=== PATIENT | male | born 1940 | race Caucasian/White ===

== ENCOUNTER 2018-08-23 09:33 | Observation (INO) | payer MEDICARE, BC ==
[2018-08-23] MEDS ORDERED: Sodium Chloride 0.9% 2.5 ML Syringe FLUSH PRN ×2 (09:40→12:23)
[2018-08-23] MEDS ORDERED: Sodium Chloride 0.9% 10 ML Syringe FLUSH PRN ×2 (09:40→12:23)
[2018-08-23] MEDS ORDERED: 50% Dextrose in Water 50 ML Syringe ONE (09:42)
[2018-08-23] MEDS ORDERED: 50% Dextrose in Water 50 ML Syringe IVPUSH ONE (09:42)
--- NOTE | 2018-08-23 10:04 | CT ---
EXAMINATION: Non contrast CT head. Coronal and sagittal reformats. HISTORY: Stroke code FINDINGS: No evidence of intra or extra axial hemorrhage, mass, midline shift, hydrocephalus or edema. Moderate periventricular and subcortical white matter hypodensities are noted. No hypoattenuation changes in the major vascular territories to suggest acute infarct. No abnormal intracranial calcifications are detected. Moderate vascular calcifications. Paranasal sinuses and mastoid air cells are well aerated without substantial findings. Orbits and globes are symmetric. Pituitary fossa appears unremarkable. Calvarium is intact. No evidence of skull fracture. IMPRESSION: 1. No acute intracranial findings. 2. Moderate small vessel ischemic changes.
--- NOTE | 2018-08-23 10:21 | EDM.PDOC ---
ED HPI GENERAL MEDICAL PROBLEM - General Chief Complaint: Neuro Symptoms/Deficits Stated Complaint: STROKE CODE Time Seen by Provider: 08/23/18 09:38 Source of Information: Reports: Family History Limitations: Reports: No Limitations - History of Present Illness INITIAL COMMENTS - FREE TEXT/NARRATIVE: History of present illness: []Patient was at the pharmacy with his when he became weak. He then became confused and diaphoretic according to his . He was seen at the [facility] yesterday and I most with a "touch of pneumonia" he was at the pharmacy picking up his antibiotics. His drove him back to the [facility] after this episode occurred and they told her to drive him directly to the emergency room. He had no loss of consciousness had no complaints but was very confused and disoriented. Review of systems: As per history of present illness and below otherwise all systems reviewed and negative. Past medical history: As per history of present illness and as reviewed below otherwise noncontributory. Surgical history: As per history of present illness and as reviewed below otherwise noncontributory. Social history: No reported history of drug or alcohol abuse. Family history: As per history of present illness and as reviewed below otherwise noncontributory. Physical exam: General: Well developed, well nourished in NAD but diaphoretic, confused HEENT: Atraumatic, normocephalic, pupils reactive, negative for conjunctival pallor or scleral icterus, mucous membranes moist, throat clear, neck supple, nontender, trachea midline. Lungs: Clear to auscultation, breath sounds equal bilaterally, chest nontender. Heart: S1S2, regular, negative for clicks, rubs, or JVD. Abdomen: NABS, Soft, nondistended, nontender. Negative for masses or hepatosplenomegaly. Negative for costovertebral tenderness. Pelvis: Stable nontender. Genitourinary: Deferred. Rectal: Deferred. Extremities: Atraumatic, negative for cords or calf pain. Neurovascular unremarkable. Neuro: Awake, alert, Cranial nerves II through XII unremarkable. Cerebellum unremarkable. Motor and sensory unremarkable throughout. Exam nonfocal. Skin:warm and dry Diagnostics: 10 AM-CT head negative EKG shows A. fib, CBC, chemistry, TSH, troponin, chest x- ray, repeat glucose 133 Therapeutics: Patient was found to have a glucose of 50 here and given 1 amp of D50, ED Course: Discussed with Dr. Messer at [id number] will be admitting this patient for observation Impression: Hypoglycemia, altered mental status, new onset A. fib Prescriptions: Plan: Admit for observation Definitive disposition and diagnosis as appropriate pending reevaluation and review of above. - Related Data Allergies Allergy/AdvReac Type Severity Reaction Status Date / Time No Known Allergies Allergy Verified 08/23/18 10:38 Home Meds: Home Meds Aspirin 81 mg PO QAM 05/22/18 [History] Fish Oil/DHA/EPA [Fish Oil 1,200 MG] 1 cap PO QAM 05/22/18 [History] Gabapentin [Neurontin] 200 mg PO BEDTIME 05/22/18 [History] Insuln Asp Prot/Insulin Aspart [NovoLOG Mix 70-30] 27 unit SQ ACDINNER 05/22/18 [History] Liraglutide [Victoza] 1.2 mg SQ QAM 05/22/18 [History] Losartan [Cozaar] 100 mg PO QAM 05/22/18 [History] Metoprolol Tartrate 50 mg PO BID 05/22/18 [History] Simvastatin 10 mg PO QPM 05/22/18 [History] amLODIPine Besylate [Amlodipine Besylate] 10 mg PO QAM 05/22/18 [History] Insuln Asp Prot/Insulin Aspart [NovoLOG Mix 70-30] 33 units SQ ACBREAKFAST 05/24 [History] Multivitamin [Multivitamins] 1 each PO QAM 08/23/18 [History] metFORMIN [Glucophage] 500 mg PO TIDMEALS 08/23/18 [History] Past Medical History HEENT History: Reports: Impaired Vision, Other (See Below) Other HEENT History: wears glasses Cardiovascular History: Reports: Hypertension Gastrointestinal History: Reports: None Genitourinary History: Reports: Diabetic Nephropathy Musculoskeletal History: Reports: Arthritis Psychiatric History: Reports: Depression Endocrine/Metabolic History: Reports: Diabetes, Type II - Infectious Disease History Infectious Disease History: Reports: Chicken Pox - Past Surgical History HEENT Surgical History: Reports: Tonsillectomy GI Surgical History: Reports: Appendectomy Musculoskeletal Surgical History: Reports: Other (See Below) Other Musculoskeletal Surgeries/Procedures:: left knee replacement, right knee surgery Social & Family History - Family History Family Medical History: Noncontributory - Caffeine Use Caffeine Use: Reports: Coffee ED ROS GENERAL - Review of Systems Review Of Systems: ROS reveals no pertinent complaints other than HPI. ED EXAM, NEURO - Physical Exam Exam: See Below (See history of present illness) Course - Vital Signs Last Recorded V/S: Last Vital Signs Temp 96.3 F 08/23/18 09:40 Pulse 92 08/23/18 10:45 Resp 20 08/23/18 09:40 BP 128/92 H 08/23/18 10:45 Pulse Ox 97 08/23/18 10:45 - Orders/Labs/Meds Orders: Active Orders 24 hr Category Date Time Status Assess Neurological Status [RC] ASDIRECTED Care 08/23/18 09:40 Active Bedrest [RC] ASDIRECTED Care 08/23/18 09:40 Active Cardiac Monitoring [RC] . DIRECTED Care 08/23/18 09:40 Active EKG 12 Lead [EKG Documentation Completion] [RC] STAT Care 08/23/18 10:20 Active EKG Documentation Completion [RC] STAT Care 08/23/18 09:40 Active Height and Weight [RC] UPON Care 08/23/18 09:40 Active Initiate Acute Stroke Protocol [RC] STAT Care 08/23/18 09:40 Active NIH Stroke Scale [RC] ASDIRECTED Care 08/23/18 09:40 Active Nursing Bedside Swallow Screen [RC] ASDIRECTED Care 08/23/18 09:40 Active Oxygen Therapy [RC] ASDIRECTED Care 08/23/18 09:40 Active Stroke Education, General [RC] Click to Edit Care 08/23/18 09:40 Active Vital Signs [RC] Q15M Care 08/23/18 09:40 Active Chest 1V Frontal [CR] Stat Exams 08/23/18 11:03 Ordered Sodium Chloride 0.9% [Saline Flush] Med 08/23/18 09:40 Active 10 ml FLUSH ASDIRECTED PRN Sodium Chloride 0.9% [Saline Flush] Med 08/23/18 09:40 Active 2.5 ml FLUSH ASDIRECTED PRN Peripheral IV Insertion Adult [OM.PC] Stat Oth 08/23/18 09:40 Ordered Peripheral IV Insertion Adult [OM.PC] Stat Oth 08/23/18 09:40 Ordered Medication Orders Sodium Chloride (Saline Flush) 10 ml FLUSH ASDIRECTED PRN PRN Reason: Keep Vein Open Sodium Chloride (Saline Flush) 2.5 ml FLUSH ASDIRECTED PRN PRN Reason: Keep Vein Open Labs: Laboratory Tests 08/23/18 08/23/18 08/23/18 Range/Units 10:16 10:16 10:16 WBC 9.16 (4.0-11.0) K/uL RBC 5.29 (4.50-5.90) M/uL Hgb 16.6 (13.0-17.0) g/dL Hct 47.8 (38.0-50.0) % MCV 90.4 (80.0-98.0) fL MCH 31.4 (27.0-32.0) pg MCHC 34.7 (31.0-37.0) g/dL RDW Std Deviation 43.8 (28.0-62.0) fl RDW Coeff of Kailey 13 (11.0-15.0) % Plt Count 323 (150-400) K/uL MPV 9.20 (7.40-12.00) fL Neut % (Auto) 54.5 (48.0-80.0) % Lymph % (Auto) 31.6 (16.0-40.0) % [place] % (Auto) 10.9 (0.0-15.0) % Eos % (Auto) 1.5 (0.0-7.0) % Baso % (Auto) 1.5 (0.0-1.5) % Neut # (Auto) 5.0 (1.4-5.7) K/uL Lymph # (Auto) 2.9 H (0.6-2.4) K/uL [place] # (Auto) 1.0 H (0.0-0.8) K/uL Eos # (Auto) 0.1 (0.0-0.7) K/uL Baso # (Auto) 0.1 (0.0-0.1) K/uL Nucleated RBC % 0.0 /100WBC Nucleated RBCs # 0 K/uL INR 1.04 APTT 27.3 (18.6-31.3) SEC Sodium 136 (136-148) mmol/L Potassium 3.6 (3.5-5.1) mmol/L Chloride 102 (98-107) mmol/L Carbon Dioxide 25.2 (21.0-32.0) mmol/L BUN 24 H (7.0-18.0) mg/dL Creatinine 1.1 (0.8-1.3) mg/dL Est Cr Clr Drug Dosing 59.77 mL/min Estimated GFR (MDRD) > 60.0 ml/min Glucose 138 H (74-106) mg/dL Calcium 9.8 (8.5-10.1) mg/dL Total Bilirubin 0.8 (0.2-1.0) mg/dL AST 24 (15-37) IU/L ALT 32 (14-63) IU/L Alkaline Phosphatase 82 (46-116) U/L Troponin I < 0.050 (0.000-0.056) ng/mL Total Protein 7.3 (6.4-8.2) g/dL Albumin 3.3 L (3.4-5.0) g/dL Globulin 4.0 (2.6-4.0) g/dL Albumin/Globulin Ratio 0.8 L (0.9-1.6) TSH 3rd Generation 1.30 (0.36-3.74) uIU/mL Meds: Medications Generic Name Dose Route Start Last Admin Trade Name Freq PRN Reason Stop Dose Admin Sodium Chloride 10 ml 08/23/18 09:40 Saline Flush FLUSH ASDIRECTED PRN Keep Vein Open Sodium Chloride 2.5 ml 08/23/18 09:40 Saline Flush FLUSH ASDIRECTED PRN Keep Vein Open Discontinued Medications Generic Name Dose Route Start Last Admin Trade Name Freq PRN Reason Stop Dose Admin Dextrose/Water 50 ml 08/23/18 09:42 08/23/18 10:09 Dextrose 50% In Water IVPUSH 08/23/18 09:43 50 ml ONETIME ONE Administration Dextrose/Water Confirm 08/23/18 09:42 08/23/18 10:09 Dextrose 50% In Water Administered 08/23/18 09:43 Not Given Dose 50 ml .ROUTE .STK-MED ONE Departure - Departure Time of Disposition: 11:33 Disposition: Refer to Observation Condition: Good Clinical Impression: New onset a-fib, Hypoglycemia - Discharge Information *PRESCRIPTION DRUG MONITORING PROGRAM REVIEWED*: No *COPY OF PRESCRIPTION DRUG MONITORING REPORT IN PATIENT FLOR: No Referrals: PCP,Unknown [Primary Care Provider] - Forms: ED Department Discharge - My Orders Last 24 Hours: My Active Orders 08/23/18 09:40 Assess Neurological Status [RC] ASDIRECTED Bedrest [RC] ASDIRECTED Cardiac Monitoring [RC] . DIRECTED EKG Documentation Completion [RC] STAT Height and Weight [RC] UPON Initiate Acute Stroke Protocol [RC] STAT NIH Stroke Scale [RC] ASDIRECTED Nursing Bedside Swallow Screen [RC] ASDIRECTED Oxygen Therapy [RC] ASDIRECTED Stroke Education, General [RC] Click to Edit Vital Signs [RC] Q15M Sodium Chloride 0.9% [Saline Flush] 10 ml FLUSH ASDIRECTED PRN Sodium Chloride 0.9% [Saline Flush] 2.5 ml FLUSH ASDIRECTED PRN Peripheral IV Insertion Adult [OM.PC] Stat Peripheral IV Insertion Adult [OM.PC] Stat 08/23/18 10:20 EKG 12 Lead [EKG Documentation Completion] [RC] STAT 08/23/18 11:03 Chest 1V Frontal [CR] Stat - Assessment/Plan Last 24 Hours: My Active Orders 08/23/18 09:40 Assess Neurological Status [RC] ASDIRECTED Bedrest [RC] ASDIRECTED Cardiac Monitoring [RC] . DIRECTED EKG Documentation Completion [RC] STAT Height and Weight [RC] UPON Initiate Acute Stroke Protocol [RC] STAT NIH Stroke Scale [RC] ASDIRECTED Nursing Bedside Swallow Screen [RC] ASDIRECTED Oxygen Therapy [RC] ASDIRECTED Stroke Education, General [RC] Click to Edit Vital Signs [RC] Q15M Sodium Chloride 0.9% [Saline Flush] 10 ml FLUSH ASDIRECTED PRN Sodium Chloride 0.9% [Saline Flush] 2.5 ml FLUSH ASDIRECTED PRN Peripheral IV Insertion Adult [OM.PC] Stat Peripheral IV Insertion Adult [OM.PC] Stat 08/23/18 10:20 EKG 12 Lead [EKG Documentation Completion] [RC] STAT 08/23/18 11:03 Chest 1V Frontal [CR] Stat
[2018-08-23 11:06] LABS: CHLORIDE,CL 102 mmol/L (98-107); SODIUM,NA 136 mmol/L (136-148)
--- NOTE | 2018-08-23 11:42 | CR ---
EXAMINATION: Portable chest radiograph. HISTORY: Stroke code. FINDINGS: The trachea is midline. The cardiomediastinal silhouette is within normal limits. No pulmonary infiltrates, effusions or pneumothorax. Osseous structures appear unremarkable. IMPRESSION: No acute cardiopulmonary process.
--- NOTE | 2018-08-23 12:28 | PCM.HP ---
H&P History of Present Illness - General Date of Service: 08/23/18 Admit Problem/Dx: Admission Diagnosis/Problem Admission Diagnosis/Problem Hypoglycemia - History of Present Illness Initial Comments - Free Text/Narative: This is a 77-year-old male that is being admitted secondary to acute hypoglycemia. Patient has a history of type 2 diabetes for which he takes oral hypoglycemics as well as insulin therapy. Patient takes Novolin 70/30 twice a day at bedtime and in the morning. Patient states that he took his nighttime dose and in the morning after checking his blood sugar which was 107 he took his morning dose of his insulin and him and his have decided that they would go out to have breakfast he only had had a piece of toast and left his home. He had previously come into the ER to have his blood work drawn and showed an elevated WBC neutrophilic in nature for which his primary care told him that he may have a respiratory infection. Patient wants these in the house with his 1 over to the clinic to pear picker his prescription and his noticed that on the way to the pharmacy he appeared to not be responding well and was lethargic and was subsequently then but over to the ER. After careful evaluation as determined that the patient was likely hypoglycemic and was subsequently admitted for hypoglycemia as well as assessment for his possible respiratory infection. - Related Data Allergies/Adverse Reactions: Allergies Allergy/AdvReac Type Severity Reaction Status Date / Time No Known Allergies Allergy Verified 08/23/18 10:38 Home Medications: Home Meds Aspirin 81 mg PO QAM 05/22/18 [History] Fish Oil/DHA/EPA [Fish Oil 1,200 MG] 1 cap PO QAM 05/22/18 [History] Gabapentin [Neurontin] 200 mg PO BEDTIME 05/22/18 [History] Insuln Asp Prot/Insulin Aspart [NovoLOG Mix 70-30] 27 unit SQ ACDINNER 05/22/18 [History] Liraglutide [Victoza] 1.2 mg SQ QAM 05/22/18 [History] Losartan [Cozaar] 100 mg PO QAM 05/22/18 [History] Metoprolol Tartrate 50 mg PO BID 05/22/18 [History] Simvastatin 10 mg PO QPM 05/22/18 [History] amLODIPine Besylate [Amlodipine Besylate] 10 mg PO QAM 05/22/18 [History] Insuln Asp Prot/Insulin Aspart [NovoLOG Mix 70-30] 33 units SQ ACBREAKFAST 05/24 [History] Multivitamin [Multivitamins] 1 each PO QAM 08/23/18 [History] metFORMIN [Glucophage] 500 mg PO TIDMEALS 08/23/18 [History] Past Medical History HEENT History: Reports: Impaired Vision, Other (See Below) Other HEENT History: wears glasses Cardiovascular History: Reports: Hypertension Gastrointestinal History: Reports: None Genitourinary History: Reports: Diabetic Nephropathy Musculoskeletal History: Reports: Arthritis Psychiatric History: Reports: Depression Endocrine/Metabolic History: Reports: Diabetes, Type II - Infectious Disease History Infectious Disease History: Reports: Chicken Pox - Past Surgical History HEENT Surgical History: Reports: Tonsillectomy GI Surgical History: Reports: Appendectomy Musculoskeletal Surgical History: Reports: Other (See Below) Other Musculoskeletal Surgeries/Procedures:: left knee replacement, right knee surgery Social & Family History - Family History Family Medical History: Noncontributory - Tobacco Use Smoking Status *Q: Never Smoker - Caffeine Use Caffeine Use: Reports: Coffee - Recreational Drug Use Recreational Drug Use: No H&P Review of Systems - Review of Systems: Review Of Systems: ROS reveals no pertinent complaints other than HPI. Exam - Exam Exam: See Below - Vital Signs Vital Signs: Last Vital Signs Temp 35.7 C 08/23/18 09:40 Pulse 83 08/23/18 11:30 Resp 20 08/23/18 09:40 BP 134/76 08/23/18 11:30 Pulse Ox 96 08/23/18 11:30 Weight: 115.9 kg - Exam Lungs: Clear to Auscultation, Normal Respiratory Effort Cardiovascular: Regular Rate, Regular Rhythm GI/Abdominal Exam: Normal Bowel Sounds, Soft Extremities: Normal Inspection, Normal Range of Motion - Patient Data Lab Results Last 24 hrs: Laboratory Results - last 24 hr 08/23/18 08/23/18 08/23/18 Range/Units 10:16 10:16 10:16 WBC 9.16 (4.0-11.0) K/uL RBC 5.29 (4.50-5.90) M/uL Hgb 16.6 (13.0-17.0) g/dL Hct 47.8 (38.0-50.0) % MCV 90.4 (80.0-98.0) fL MCH 31.4 (27.0-32.0) pg MCHC 34.7 (31.0-37.0) g/dL RDW Std Deviation 43.8 (28.0-62.0) fl RDW Coeff of Kailey 13 (11.0-15.0) % Plt Count 323 (150-400) K/uL MPV 9.20 (7.40-12.00) fL Neut % (Auto) 54.5 (48.0-80.0) % Lymph % (Auto) 31.6 (16.0-40.0) % [place] % (Auto) 10.9 (0.0-15.0) % Eos % (Auto) 1.5 (0.0-7.0) % Baso % (Auto) 1.5 (0.0-1.5) % Neut # (Auto) 5.0 (1.4-5.7) K/uL Lymph # (Auto) 2.9 H (0.6-2.4) K/uL [place] # (Auto) 1.0 H (0.0-0.8) K/uL Eos # (Auto) 0.1 (0.0-0.7) K/uL Baso # (Auto) 0.1 (0.0-0.1) K/uL Nucleated RBC % 0.0 /100WBC Nucleated RBCs # 0 K/uL INR 1.04 APTT 27.3 (18.6-31.3) SEC Sodium 136 (136-148) mmol/L Potassium 3.6 (3.5-5.1) mmol/L Chloride 102 (98-107) mmol/L Carbon Dioxide 25.2 (21.0-32.0) mmol/L BUN 24 H (7.0-18.0) mg/dL Creatinine 1.1 (0.8-1.3) mg/dL Est Cr Clr Drug Dosing 59.77 mL/min Estimated GFR (MDRD) > 60.0 ml/min Glucose 138 H (74-106) mg/dL Calcium 9.8 (8.5-10.1) mg/dL Total Bilirubin 0.8 (0.2-1.0) mg/dL AST 24 (15-37) IU/L ALT 32 (14-63) IU/L Alkaline Phosphatase 82 (46-116) U/L Troponin I < 0.050 (0.000-0.056) ng/mL Total Protein 7.3 (6.4-8.2) g/dL Albumin 3.3 L (3.4-5.0) g/dL Globulin 4.0 (2.6-4.0) g/dL Albumin/Globulin Ratio 0.8 L (0.9-1.6) TSH 3rd Generation 1.30 (0.36-3.74) uIU/mL Result Diagrams: 08/23/18 10:16 08/23/18 10:16 Problem List Initiated/Reviewed/Updated: Yes Orders Last 24hrs: Active Orders 24 hr Category Date Time Status Admission Status [Patient Status] [ADT] Stat ADT 08/23/18 11:38 Active Patient Status [ADT] Stat ADT 08/23/18 11:34 Active Antiembolic Devices [RC] PER UNIT ROUTINE Care 08/23/18 12:25 Ordered Assess Neurological Status [RC] ASDIRECTED Care 08/23/18 09:40 Active Bedrest [RC] ASDIRECTED Care 08/23/18 09:40 Active Blood Glucose Check, Bedside [RC] QIDACANDBED Care 08/23/18 12:23 Ordered Cardiac Monitoring [RC] . DIRECTED Care 08/23/18 09:40 Active Cardiac Monitoring [RC] . DIRECTED Care 08/23/18 12:25 Ordered EKG 12 Lead [EKG Documentation Completion] [RC] STAT Care 08/23/18 10:20 Active EKG Documentation Completion [RC] STAT Care 08/23/18 09:40 Active Height and Weight [RC] UPON Care 08/23/18 09:40 Active Height and Weight [RC] UPON Care 08/23/18 12:23 Ordered Initiate Acute Stroke Protocol [RC] STAT Care 08/23/18 09:40 Active Intake and Output [RC] QSHIFT Care 08/23/18 12:24 Ordered NIH Stroke Scale [RC] ASDIRECTED Care 08/23/18 09:40 Active Nursing Bedside Swallow Screen [RC] ASDIRECTED Care 08/23/18 09:40 Active Oxygen Therapy [RC] ASDIRECTED Care 08/23/18 09:40 Active Oxygen Therapy [RC] PRN Care 08/23/18 12:23 Ordered Stroke Education, General [RC] Click to Edit Care 08/23/18 09:40 Active Up With Assistance [RC] ASDIRECTED Care 08/23/18 12:23 Ordered VTE/DVT Education [RC] PER UNIT ROUTINE Care 08/23/18 12:23 Ordered Vital Signs [RC] Q15M Care 08/23/18 09:40 Active Vital Signs [RC] Q4H Care 08/23/18 12:23 Ordered [place] [employer] Diet [DIET] Diet 08/23/18 Breakfast Ordered Sodium Chloride 0.9% @ 125 MLS/HR (1000ml) Med 08/23/18 12:30 Ordered Sodium Chloride 0.9% [Normal Saline] 1,000 ml IV ASDIRECTED Sodium Chloride 0.9% [Saline Flush] Med 08/23/18 09:40 Active 10 ml FLUSH ASDIRECTED PRN Sodium Chloride 0.9% [Saline Flush] Med 08/23/18 12:23 Ordered 10 ml FLUSH ASDIRECTED PRN Sodium Chloride 0.9% [Saline Flush] Med 08/23/18 09:40 Active 2.5 ml FLUSH ASDIRECTED PRN Sodium Chloride 0.9% [Saline Flush] Med 08/23/18 12:23 Ordered 2.5 ml FLUSH ASDIRECTED PRN Peripheral IV Insertion Adult [OM.PC] Routine Ot 08/23/18 12:23 Ordered Peripheral IV Insertion Adult [OM.PC] Stat Oth 08/23/18 09:40 Ordered Peripheral IV Insertion Adult [OM.PC] Stat Ot 08/23/18 09:40 Ordered Saline Lock Insert [OM.PC] Routine Ot 08/23/18 12:23 Ordered Sequential Compression Device [OM.PC] Per Unit Routine Oth 08/23/18 12:24 Ordered Medication Orders Sodium Chloride (Saline Flush) 10 ml FLUSH ASDIRECTED PRN PRN Reason: Keep Vein Open Sodium Chloride (Saline Flush) 2.5 ml FLUSH ASDIRECTED PRN PRN Reason: Keep Vein Open Assessment/Plan Comment:: This is a 77-year-old male who is being admitted for an acute episode of hypoglycemia secondary to taking his morning insulin dose and not eating breakfast afterwards. Patient also has been noted to have an elevated white count, complaining of cough and feeling unwell. Shall treat the patient for community-acquired pneumonia. #1. Acute episode of hypoglycemia secondary to insulin intake without any oral nutrition consumption -Continue to watch the patient's blood sugar levels as they have now normalized , patient has been placed on an ADA diet with a low-dose insulin sliding scale. -Consult diabetic education to assess if the patient if the patient's insulin regimen is being too tightly controlled #2. Elevated wbc's seen in the ER yesterday, patient complaining of cough and was to be treated for community-acquired pneumonia by his PCP -Patient start azithromycin and ceftriaxone for community-acquired pneumonia continue to monitor the patient's status, get sputum cultures for further assessment. Anticipated length of stay is less than 2 midnights
[2018-08-23] MEDS ORDERED: Azithromycin 250 MG Tab PO SCH (13:00)
[2018-08-23] MEDS ORDERED: cefTRIAXone 1 GM in Premix Bag 1 BAG IV SCH (13:00)
[2018-08-23] MEDS: Sodium Chloride 0.9% 1,000 ML IV SCH ×2 (13:09→21:51)
[2018-08-23] MEDS: Enoxaparin 40 MG/0.4 ML Syringe SUBCUT SCH (13:20)
[2018-08-23] MEDS: Insulin Aspart 100 Units/ML 3 ML Pen SUBCUT SCH (17:16)
[2018-08-23] MEDS: Metoprolol Tartrate 50 MG Tab PO SCH ×2 (18:27→20:22)
[2018-08-23] MEDS ORDERED: Gabapentin 100 MG Cap PO SCH (21:00)
[2018-08-24] MEDS: Insulin Aspart 100 Units/ML 3 ML Pen SUBCUT SCH ×2 (06:38→12:30)
[2018-08-24 09:44] LABS: CHLORIDE,CL 101 mmol/L (98-107); SODIUM,NA 135 mmol/L (136-148)
[2018-08-24] MEDS ORDERED: Pantoprazole 40 MG Tab.CR PO SCH (10:15)
[2018-08-24] MEDS: Metoprolol Tartrate 50 MG Tab PO SCH (10:18)
[2018-08-24] MEDS: Enoxaparin 40 MG/0.4 ML Syringe SUBCUT SCH (10:20)
== END 2018-08-24 13:11 | disposition home or self-care (01) ==
LOC: MW.ED 09:33 → MW.MS 11:34
PROVIDERS: ADMIT Internal Medicine; ATTEND Internal Medicine
DX: E11.649 Type 2 diabetes mellitus with hypoglycemia without coma (principal); D72.829 Elevated white blood cell count, unspecified; I10 Essential (primary) hypertension; I48.91 Unspecified atrial fibrillation; E11.21 Type 2 diabetes mellitus with diabetic nephropathy; R10.9 Unspecified abdominal pain; Z79.82 Long term (current) use of aspirin; Z79.4 Long term (current) use of insulin; Z79.899 Other long term (current) drug therapy
CPT/HCPCS: 36415; 70450; 71045; 80053; 82962; 84443; 84484; 85025; 85610; 85730; 86677; 87070; 87205; 87804; 93005; 96361; 96365; 96372; 96375; 99285; A9270; G0378; J0696; J1650; J7040; J7060; 87077; 87186; 96374

== ENCOUNTER 2020-01-15 11:40 | Emergency (ER) | payer OTHER, MEDICARE, BC ==
[2020-01-15] MEDS ORDERED: Sodium Chloride 0.9% 2.5 ML Syringe FLUSH PRN (11:48)
[2020-01-15] MEDS ORDERED: Sodium Chloride 0.9% 10 ML Syringe FLUSH PRN (11:48)
--- NOTE | 2020-01-15 12:07 | EDM.PDOC ---
ED HPI GENERAL MEDICAL PROBLEM - General Stated Complaint: VISON PROBLEMS Time Seen by Provider: 01/15/20 11:42 - History of Present Illness INITIAL COMMENTS - FREE TEXT/NARRATIVE: History of present illness: Patient presents to the ED after visiting with his primary care doctor today. He has a chief complaint of increased blurred vision in the left eye that began yesterday morning after awakening. He is also had difficulty with his balance and is walked into doors or doorjamb's a couple times since yesterday morning. Is also reported that he has increased confusion from his baseline per the primary care doctor. Patient states he had a little bit of frontal headache when he woke up and had blurred vision in both eyes but it was worse in the left. He denies any weakness otherwise no nausea or vomiting no focal weakness no chest pain or trouble breathing but he has been having trouble with his balance. He denies dysuria no cough no fever. Has a history of diabetes nothing seems to make it better or worse Review of systems: As per history of present illness and below otherwise all systems reviewed and negative. Past medical history: As per history of present illness and as reviewed below otherwise noncontributory. Surgical history: As per history of present illness and as reviewed below otherwise noncontributory. Social history: No reported history of drug or alcohol abuse. Family history: As per history of present illness and as reviewed below otherwise noncontributory. Physical exam: HEENT: Atraumatic, normocephalic, pupils reactive, negative for conjunctival pallor or scleral icterus, mucous membranes moist, throat clear, neck supple, nontender, trachea midline. Lungs: Clear to auscultation, breath sounds equal bilaterally, chest nontender. Heart: S1S2, regular, negative for clicks, rubs, or JVD. Abdomen: Soft, nondistended, nontender. Negative for masses or hepatosplenomegaly. Negative for costovertebral tenderness. Pelvis: Stable nontender. Genitourinary: Deferred. Rectal: Deferred. Extremities: Atraumatic, negative for cords or calf pain. Neurovascular unremarkable. Neuro: Awake, alert, oriented. Cranial nerves II through XII unremarkable. Cerebellum unremarkable. Motor and sensory unremarkable throughout. Exam nonfocal. There is no pronator drift Diagnostics: [] Therapeutics: [] Impression: Possible CVA [] Plan: Patient will undergo a stroke protocol evaluation and be reassessed. [] Definitive disposition and diagnosis as appropriate pending reevaluation and review of above. Headache Pain Score (Numeric/FACES): 2 - Related Data Allergies Allergy/AdvReac Type Severity Reaction Status Date / Time No Known Allergies Allergy Verified 01/15/20 12:21 Home Meds: Home Meds Aspirin 81 mg PO QAM 05/22/18 [History] Fish Oil/DHA/EPA [Fish Oil 1,200 MG] 1 cap PO QAM 05/22/18 [History] Gabapentin [Neurontin] 600 mg PO BEDTIME 05/22/18 [History] Insuln Asp Prot/Insulin Aspart [NovoLOG Mix 70-30] 27 unit SQ ACDINNER 05/22/18 [History] Liraglutide [Victoza] 1.2 mg SQ QAM 05/22/18 [History] Losartan [Cozaar] 100 mg PO QAM 05/22/18 [History] Metoprolol Tartrate 50 mg PO BID 05/22/18 [History] Simvastatin 20 mg PO QPM 05/22/18 [History] amLODIPine Besylate [Amlodipine Besylate] 10 mg PO QAM 05/22/18 [History] Insuln Asp Prot/Insulin Aspart [NovoLOG Mix 70-30] 33 units SQ ACBREAKFAST 05/24/18 [History] Multivitamin [Multivitamins] 1 each PO QAM 08/23/18 [History] metFORMIN [Glucophage] 500 mg PO TIDMEALS 08/23/18 [History] Budesonide/Formoterol Fumarate [Budesonide-Formoterol 160-4.5] 10.2 gm IH ASDIRECTED 01/15/20 [History] Past Medical History HEENT History: Reports: Impaired Vision, Other (See Below) Other HEENT History: wears glasses Cardiovascular History: Reports: Hypertension Gastrointestinal History: Reports: None Genitourinary History: Reports: Diabetic Nephropathy Musculoskeletal History: Reports: Arthritis Psychiatric History: Reports: Depression Endocrine/Metabolic History: Reports: Diabetes, Type II Hematologic History: Reports: None Immunologic History: Reports: None Oncologic (Cancer) History: Reports: None - Infectious Disease History Infectious Disease History: Reports: Chicken Pox - Past Surgical History HEENT Surgical History: Reports: Tonsillectomy GI Surgical History: Reports: Appendectomy Musculoskeletal Surgical History: Reports: Other (See Below) Other Musculoskeletal Surgeries/Procedures:: left knee replacement, right knee surgery Social & Family History - Family History Family Medical History: Noncontributory - Caffeine Use Caffeine Use: Reports: Coffee ED ROS GENERAL - Review of Systems Review Of Systems: See Below ED EXAM, GENERAL - Physical Exam Exam: See Below Course - Vital Signs Text/Narrative:: Patient has been having symptoms of a potential CVA to include blurred left eye vision and ataxia this is been present since yesterday morning, greater than 24 hours he will not be a TPA candidate. Time of onset cannot be ascertained and is at least 24 hours ago Patient is angry that it has taken 2 hours to complete his evaluation I attempted to redirect the patient and explained that I think he needs to be admitted for stroke he is not interested in being admitted he understands that I believe he is having a stroke but he does not want to stay and will leave AGAINST MEDICAL ADVICE he was warned. Last Recorded V/S: Last Vital Signs Temp 36.3 C 01/15/20 11:50 Pulse 87 01/15/20 11:50 Resp 19 01/15/20 11:50 BP 134/101 H 01/15/20 11:50 Pulse Ox 94 L 01/15/20 11:50 - Orders/Labs/Meds Orders: Active Orders 24 hr Category Date Time Status Assess Neurological Status [RC] ASDIRECTED Care 01/15/20 11:49 Active Bedrest [RC] ASDIRECTED Care 01/15/20 11:49 Active Cardiac Monitoring [RC] . DIRECTED Care 01/15/20 11:49 Active EKG Documentation Completion [RC] STAT Care 01/15/20 11:49 Active Height and Weight [RC] UPON Care 01/15/20 11:49 Active Initiate Acute Stroke Protocol [RC] STAT Care 01/15/20 11:49 Active NIH Stroke Scale [RC] ASDIRECTED Care 01/15/20 11:49 Active Nursing Bedside Swallow Screen [RC] ASDIRECTED Care 01/15/20 11:49 Active Oxygen Therapy [RC] ASDIRECTED Care 01/15/20 11:49 Active Stroke Education, General [RC] Click to Edit Care 01/15/20 11:49 Active Vital Signs [RC] Q15M Care 01/15/20 11:49 Active Chest 1V Frontal [CR] Stat Exams 01/15/20 11:50 Taken UA RFX YINKA AND CULT IF INDIC [URIN] Stat Lab 01/15/20 11:48 Ordered Sodium Chloride 0.9% [Saline Flush] Med 01/15/20 11:48 Active 10 ml FLUSH ASDIRECTED PRN Sodium Chloride 0.9% [Saline Flush] Med 01/15/20 11:48 Active 2.5 ml FLUSH ASDIRECTED PRN Peripheral IV Insertion Adult [OM.PC] Stat Oth 01/15/20 11:49 Ordered Peripheral IV Insertion Adult [OM.PC] Stat Oth 01/15/20 11:49 Ordered Resuscitation Status Stat Resus Stat 01/15/20 11:48 Ordered Medication Orders Sodium Chloride (Saline Flush) 10 ml FLUSH ASDIRECTED PRN PRN Reason: Keep Vein Open Sodium Chloride (Saline Flush) 2.5 ml FLUSH ASDIRECTED PRN PRN Reason: Keep Vein Open Labs: Laboratory Tests 01/15/20 01/15/20 01/15/20 Range/Units 11:55 11:55 11:55 WBC 10.80 (4.0-11.0) K/uL RBC 5.30 (4.50-5.90) M/uL Hgb 16.5 (13.0-17.0) g/dL Hct 49.3 (38.0-50.0) % MCV 93.0 (80.0-98.0) fL MCH 31.1 (27.0-32.0) pg MCHC 33.5 (31.0-37.0) g/dL RDW Std Deviation 46.2 (28.0-62.0) fl RDW Coeff of Kailey 14 (11.0-15.0) % Plt Count 342 (150-400) K/uL MPV 9.40 (7.40-12.00) fL Neut % (Auto) 66.6 (48.0-80.0) % Lymph % (Auto) 20.9 (16.0-40.0) % Mckean % (Auto) 10.8 (0.0-15.0) % Eos % (Auto) 0.9 (0.0-7.0) % Baso % (Auto) 0.8 (0.0-1.5) % Neut # (Auto) 7.2 H (1.4-5.7) K/uL Lymph # (Auto) 2.3 (0.6-2.4) K/uL Mckean # (Auto) 1.2 H (0.0-0.8) K/uL Eos # (Auto) 0.1 (0.0-0.7) K/uL Baso # (Auto) 0.1 (0.0-0.1) K/uL Nucleated RBC % 0.0 /100WBC Nucleated RBCs # 0 K/uL INR 0.96 APTT 27.2 (18.6-31.3) SEC Sodium 137 (136-148) mmol/L Potassium 4.3 (3.5-5.1) mmol/L Chloride 102 (98-107) mmol/L Carbon Dioxide 24.3 (21.0-32.0) mmol/L BUN 16 (7.0-18.0) mg/dL Creatinine 1.1 (0.8-1.3) mg/dL Est Cr Clr Drug Dosing 57.81 mL/min Estimated GFR (MDRD) > 60.0 ml/min Glucose 116 H (74-106) mg/dL Calcium 9.6 (8.5-10.1) mg/dL Total Bilirubin 0.5 (0.2-1.0) mg/dL AST 25 (15-37) IU/L ALT 40 (14-63) IU/L Alkaline Phosphatase 95 (46-116) U/L Troponin I < 0.050 (0.000-0.056) ng/mL Total Protein 7.7 (6.4-8.2) g/dL Albumin 3.8 (3.4-5.0) g/dL Globulin 3.9 (2.6-4.0) g/dL Albumin/Globulin Ratio 1.0 (0.9-1.6) TSH 3rd Generation 1.75 (0.36-3.74) uIU/mL Meds: Medications Generic Name Dose Route Start Last Admin Trade Name Freq PRN Reason Stop Dose Admin Sodium Chloride 10 ml 01/15/20 11:48 Saline Flush FLUSH ASDIRECTED PRN Keep Vein Open Sodium Chloride 2.5 ml 01/15/20 11:48 Saline Flush FLUSH ASDIRECTED PRN Keep Vein Open Departure - Departure Time of Disposition: 14:09 Disposition: Against Medical Advice 07 Condition: Poor, Serious Clinical Impression: CVA (cerebral vascular accident) - Discharge Information *PRESCRIPTION DRUG MONITORING PROGRAM REVIEWED*: Not Applicable *COPY OF PRESCRIPTION DRUG MONITORING REPORT IN PATIENT FLOR: Not Applicable Referrals: [facility] [Primary Care Provider] - Additional Instructions: The following information is given to patients seen in the emergency department who are being discharged to home. This information is to outline your options for follow-up care. We provide all patients seen in our emergency department with a follow-up referral. The need for follow-up, as well as the timing and circumstances, are variable depending upon the specifics of your emergency department visit. If you don't have a primary care physician on staff, we will provide you with a referral. We always advise you to contact your personal physician following an emergency department visit to inform them of the circumstance of the visit and for follow-up with them and/or the need for any referrals to a consulting specialist. The emergency department will also refer you to a specialist when appropriate. This referral assures that you have the opportunity for follow-up care with a specialist. All of these measure are taken in an effort to provide you with optimal care, which includes your follow-up. Under all circumstances we always encourage you to contact your private physician who remains a resource for coordinating your care. When calling for follow-up care, please make the office aware that this follow-up is from your recent emergency room visit. If for any reason you are refused follow-up, please contact the [facility] Emergency Department at and asked to speak to the emergency department charge nurse. Sepsis Event Note (ED) - Focused Exam Vital Signs: Vital Signs Temp Pulse Resp BP Pulse Ox 01/15/20 11:50 36.3 C 87 19 134/101 H 94 L - My Orders Last 24 Hours: My Active Orders 01/15/20 11:48 UA RFX YINKA AND CULT IF INDIC [URIN] Stat Sodium Chloride 0.9% [Saline Flush] 10 ml FLUSH ASDIRECTED PRN Sodium Chloride 0.9% [Saline Flush] 2.5 ml FLUSH ASDIRECTED PRN Resuscitation Status Stat 01/15/20 11:49 Assess Neurological Status [RC] ASDIRECTED Bedrest [RC] ASDIRECTED Cardiac Monitoring [RC] . DIRECTED EKG Documentation Completion [RC] STAT Height and Weight [RC] UPON Initiate Acute Stroke Protocol [RC] STAT NIH Stroke Scale [RC] ASDIRECTED Nursing Bedside Swallow Screen [RC] ASDIRECTED Oxygen Therapy [RC] ASDIRECTED Stroke Education, General [RC] Click to Edit Vital Signs [RC] Q15M Peripheral IV Insertion Adult [OM.PC] Stat Peripheral IV Insertion Adult [OM.PC] Stat 01/15/20 11:50 Chest 1V Frontal [CR] Stat - Assessment/Plan Last 24 Hours: My Active Orders 01/15/20 11:48 UA RFX YINKA AND CULT IF INDIC [URIN] Stat Sodium Chloride 0.9% [Saline Flush] 10 ml FLUSH ASDIRECTED PRN Sodium Chloride 0.9% [Saline Flush] 2.5 ml FLUSH ASDIRECTED PRN Resuscitation Status Stat 01/15/20 11:49 Assess Neurological Status [RC] ASDIRECTED Bedrest [RC] ASDIRECTED Cardiac Monitoring [RC] . DIRECTED EKG Documentation Completion [RC] STAT Height and Weight [RC] UPON Initiate Acute Stroke Protocol [RC] STAT NIH Stroke Scale [RC] ASDIRECTED Nursing Bedside Swallow Screen [RC] ASDIRECTED Oxygen Therapy [RC] ASDIRECTED Stroke Education, General [RC] Click to Edit Vital Signs [RC] Q15M Peripheral IV Insertion Adult [OM.PC] Stat Peripheral IV Insertion Adult [OM.PC] Stat 01/15/20 11:50 Chest 1V Frontal [CR] Stat
--- NOTE | 2020-01-15 12:18 | CT ---
Head CT Technique: Multiple axial sections through the brain were obtained. Intravenous contrast was not utilized. Comparison: Prior head CT exam of 08/23/18. Findings: Ventricles along with basal cisterns and sulci over the convexities are mildly prominent. Diminished density is noted within the periventricular and subcortical white matter most likely representing small vessel ischemic demyelination change. 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 No other abnormal parenchymal densities are seen. No evidence of intracranial hemorrhage. No midline shift or mass-effect is seen. Atherosclerotic calcifications are seen within the vertebral vessels and within the carotid siphon. Visualized mastoid sinuses and paranasal sinuses show nothing acute. No acute calvarial abnormality is appreciated. Impression: 1. Senescent change as noted above. 2. Nothing acute is appreciated on noncontrast head CT exam. Note: If patient's symptoms warrant further intracranial evaluation, MRI could then be considered. Diagnostic code #2 This report was dictated in MDT
[2020-01-15 12:37] LABS: BLOOD UREA NITROGEN,BUN 16 mg/dL (7.0-18.0); CARBON DIOXIDE,CO2 24.3 mmol/L (21.0-32.0); CHLORIDE,CL 102 mmol/L (98-107); GLUCOSE RANDOM 116 mg/dL (74-106); POTASSIUM,K 4.3 mmol/L (3.5-5.1); SODIUM,NA 137 mmol/L (136-148)
[2020-01-15] MEDS ORDERED: Morphine 4 MG/ML Syringe ONE (12:40)
--- NOTE | 2020-01-15 14:09 | CR ---
Chest: Portable view of the chest was obtained. Comparison: Prior chest x-ray of 08/23/18. Heart size is within normal limits for portable technique. Tortuous thoracic aorta is noted. Lungs are clear with no acute parenchymal change. Mild degenerative change is noted within both shoulders. No acute osseous finding is appreciated. Impression: 1. Findings as noted above. 2. Nothing acute is seen on portable chest x-ray. Diagnostic code #2 This report was dictated in MDT
[2020-01-15] MEDS ORDERED: Aspirin 81 MG Tab.Chew PO ONE (14:10)
== END 2020-01-15 14:19 | disposition left against medical advice (07) ==
LOC: MW.ED 11:40
DX: I63.9 Cerebral infarction, unspecified (principal); I10 Essential (primary) hypertension; E11.21 Type 2 diabetes mellitus with diabetic nephropathy; Z79.4 Long term (current) use of insulin; Z79.899 Other long term (current) drug therapy
CPT/HCPCS: 36415; 70450; 70450-26; 71045; 71045-26; 80053; 84443; 84484; 85025; 85610; 85730; 93005; 99283; 99285-25

== ENCOUNTER 2020-01-15 17:13 | Observation (INO) | payer OTHER, MEDICARE, BC ==
--- NOTE | 2020-01-15 17:38 | EDM.PDOC ---
ED HPI GENERAL MEDICAL PROBLEM - General Chief Complaint: Neurological Problem Stated Complaint: VISION ISSUES Time Seen by Provider: 01/15/20 17:16 - History of Present Illness INITIAL COMMENTS - FREE TEXT/NARRATIVE: History of present illness: [] Patient apparently called his primary care doctor at the [place] who told him he needed to go back to the hospital and be admitted as was recommended prior this afternoon no new symptoms no new concerns he was brought in by his see previous chart for information. Review of systems: As per history of present illness and below otherwise all systems reviewed and negative. Past medical history: As per history of present illness and as reviewed below otherwise noncontributory. Surgical history: As per history of present illness and as reviewed below otherwise noncontributor y. Social history: No reported history of drug or alcohol abuse. Family history: As per history of present illness and as reviewed below otherwise noncontributory. Physical exam: HEENT: Atraumatic, normocephalic, pupils reactive, negative for conjunctival pallor or scleral icterus, mucous membranes moist, throat clear, neck supple, nontender, trachea midline. Lungs: Clear to auscultation, breath sounds equal bilaterally, chest nontender. Heart: S1S2, regular, negative for clicks, rubs, or JVD. Abdomen: Soft, nondistended, nontender. Negative for masses or hepatosplenomegaly. Negative for costovertebral tenderness. Pelvis: Stable nontender. Genitourinary: Deferred. Rectal: Deferred. Extremities: Atraumatic, negative for cords or calf pain. Neurovascular unremarkable. Neuro: Awake, alert, oriented. Cranial nerves II through XII unremarkable. Cerebellum unremarkable. Motor and sensory unremarkable throughout. Exam nonfocal. No pronator drift there is some ataxia on ambulation. Diagnostics: [] Therapeutics: [] Impression: [] Plan: The patient as previously planned before he left AMA [] Definitive disposition and diagnosis as appropriate pending reevaluation and review of above. - Related Data Allergies Allergy/AdvReac Type Severity Reaction Status Date / Time No Known Allergies Allergy Verified 01/15/20 17:22 Home Meds: Home Meds Aspirin 81 mg PO QAM 05/22/18 [History] Fish Oil/DHA/EPA [Fish Oil 1,200 MG] 1 cap PO QAM 05/22/18 [History] Gabapentin [Neurontin] 600 mg PO BEDTIME 05/22/18 [History] Insuln Asp Prot/Insulin Aspart [NovoLOG Mix 70-30] 27 unit SQ ACDINNER 05/22/18 [History] Liraglutide [Victoza] 1.2 mg SQ QAM 05/22/18 [History] Losartan [Cozaar] 100 mg PO QAM 05/22/18 [History] Metoprolol Tartrate 50 mg PO BID 05/22/18 [History] Simvastatin 20 mg PO QPM 05/22/18 [History] amLODIPine Besylate [Amlodipine Besylate] 10 mg PO QAM 05/22/18 [History] Insuln Asp Prot/Insulin Aspart [NovoLOG Mix 70-30] 33 units SQ ACBREAKFAST 05/24/18 [History] Multivitamin [Multivitamins] 1 each PO QAM 08/23/18 [History] metFORMIN [Glucophage] 500 mg PO TIDMEALS 08/23/18 [History] Budesonide/Formoterol Fumarate [Budesonide-Formoterol 160-4.5] 10.2 gm IH ASDIRECTED 01/15/20 [History] Past Medical History HEENT History: Reports: Impaired Vision, Other (See Below) Other HEENT History: wears glasses Cardiovascular History: Reports: Hypertension Respiratory History: Reports: COPD Gastrointestinal History: Reports: None Genitourinary History: Reports: Diabetic Nephropathy Musculoskeletal History: Reports: Arthritis Neurological History: Reports: Neuropathy, Diabetic Psychiatric History: Reports: Depression Endocrine/Metabolic History: Reports: Diabetes, Type II Hematologic History: Reports: None Immunologic History: Reports: None Oncologic (Cancer) History: Reports: None Dermatologic History: Reports: None - Infectious Disease History Infectious Disease History: Reports: None - Past Surgical History Head Surgeries/Procedures: Reports: None HEENT Surgical History: Reports: Tonsillectomy Respiratory Surgical History: Reports: None GI Surgical History: Reports: Appendectomy Male Surgical History: Reports: None Endocrine Surgical History: Reports: None Musculoskeletal Surgical History: Reports: Other (See Below) Other Musculoskeletal Surgeries/Procedures:: left knee replacement, right knee surgery Oncologic Surgical History: Reports: None Social & Family History - Family History Family Medical History: Noncontributory - Tobacco Use Smoking Status *Q: Never Smoker Second Hand Smoke Exposure: No - Caffeine Use Caffeine Use: Reports: None - Recreational Drug Use Recreational Drug Use: No ED ROS GENERAL - Review of Systems Review Of Systems: See Below ED EXAM, GENERAL - Physical Exam Exam: See Below Course - Vital Signs Text/Narrative:: I discussed the case with Dr. Messer at 5:30 PM he will admit the patient to lemetry. Last Recorded V/S: Last Vital Signs Temp 35.7 C L 01/15/20 17:20 Pulse 82 01/15/20 17:20 Resp 26 H 01/15/20 17:20 BP 148/84 H 01/15/20 17:20 Pulse Ox 94 L 01/15/20 17:20 - Orders/Labs/Meds Orders: Active Orders 24 hr Category Date Time Status CORONAVIRUS COVID-19 PCR PHL Stat Lab 01/15/20 17:28 Ordered UA RFX YINKA AND CULT IF INDIC [URIN] Stat Lab 01/15/20 17:25 Ordered Departure - Departure Time of Disposition: 17:30 Disposition: Refer to Observation Condition: Good Clinical Impression: CVA (cerebral vascular accident) - Discharge Information *PRESCRIPTION DRUG MONITORING PROGRAM REVIEWED*: Not Applicable *COPY OF PRESCRIPTION DRUG MONITORING REPORT IN PATIENT FLOR: Not Applicable Referrals: [facility] [Primary Care Provider] - Sepsis Event Note (ED) - Evaluation Sepsis Screening Result: No Definite Risk - Focused Exam Vital Signs: Vital Signs Temp Pulse Resp BP Pulse Ox 01/15/20 17:20 35.7 C L 82 26 H 148/84 H 94 L - My Orders Last 24 Hours: My Active Orders 01/15/20 17:25 UA RFX YINKA AND CULT IF INDIC [URIN] Stat 01/15/20 17:28 CORONAVIRUS COVID-19 PCR PHL Stat - Assessment/Plan Last 24 Hours: My Active Orders 01/15/20 17:25 UA RFX YINKA AND CULT IF INDIC [URIN] Stat 01/15/20 17:28 CORONAVIRUS COVID-19 PCR PHL Stat
[2020-01-15] MEDS ORDERED: Aspirin 81 MG Tab.Chew PO ONE (17:49)
[2020-01-15] MEDS ORDERED: Aspirin 81 MG Tab.Chew ONE (17:50)
[2020-01-15] MEDS ORDERED: Simvastatin 20 MG Tab PO SCH (21:37)
[2020-01-15] MEDS ORDERED: Metoprolol Tartrate 50 MG Tab PO SCH (21:45)
--- NOTE | 2020-01-15 23:16 | PCM.HP.2 ---
H&P History of Present Illness - General Date of Service: 01/15/20 Admit Problem/Dx: Admission Diagnosis/Problem Admission Diagnosis/Problem CVA, Cerebrovascular accident - History of Present Illness Initial Comments - Free Text/Narative: 79 yo male with pmh of DM and hypertension who presented to the ED with complaint of blurred vision of the left eye. PAtient yesterday had diffucult seeing who was sitting next to him and struggled giving himself insulin due to vision changes. PAtient reports his blood glucose at home has been in the 150s. He also reports dizziness and balance problems with walking as he is bumping into things. In the ED he has a negative CT scan of the head. He did leave the ED but return [facility] Patient reports his vision has improved. - Related Data Allergies/Adverse Reactions: Allergies Allergy/AdvReac Type Severity Reaction Status Date / Time No Known Allergies Allergy Verified 01/15/20 20:34 Home Medications: Home Meds Aspirin 81 mg PO QAM 05/22/18 [History] Fish Oil/DHA/EPA [Fish Oil 1,200 MG] 1 cap PO QAM 05/22/18 [History] Insuln Asp Prot/Insulin Aspart [NovoLOG Mix 70-30] 27 unit SQ ACDINNER 05/22/18 [History] Liraglutide [Victoza] 1.2 mg SQ QAM 05/22/18 [History] Losartan [Cozaar] 100 mg PO QAM 05/22/18 [History] Metoprolol Tartrate 50 mg PO BID 05/22/18 [History] Simvastatin 20 mg PO QPM 05/22/18 [History] amLODIPine Besylate [Amlodipine Besylate] 10 mg PO QAM 05/22/18 [History] Insuln Asp Prot/Insulin Aspart [NovoLOG Mix 70-30] 33 units SQ ACBREAKFAST 05/24/18 [History] Multivitamin [Multivitamins] 1 each PO QAM 08/23/18 [History] metFORMIN [Glucophage] 500 mg PO TIDMEALS 08/23/18 [History] Budesonide/Formoterol Fumarate [Budesonide-Formoterol 160-4.5] 10.2 gm IH ASDIRECTED 01/15/20 [History] Erythromycin Base [Erythromycin 0.5% Ophth Oint] 1 applic EYEBOTH BEDTIME 01/16/20 [History] Gabapentin [Neurontin] 300 mg PO DAILY 01/16/20 [History] Past Medical History HEENT History: Reports: Impaired Vision, Other (See Below) Other HEENT History: wears glasses Cardiovascular History: Reports: Hypertension Respiratory History: Reports: COPD Gastrointestinal History: Reports: None Genitourinary History: Reports: Diabetic Nephropathy Musculoskeletal History: Reports: Arthritis Neurological History: Reports: Neuropathy, Diabetic Psychiatric History: Reports: Depression Endocrine/Metabolic History: Reports: Diabetes, Type II Hematologic History: Reports: None Immunologic History: Reports: None Oncologic (Cancer) History: Reports: None Dermatologic History: Reports: None - Infectious Disease History Infectious Disease History: Reports: None - Past Surgical History Head Surgeries/Procedures: Reports: None HEENT Surgical History: Reports: Tonsillectomy Respiratory Surgical History: Reports: None GI Surgical History: Reports: Appendectomy Male Surgical History: Reports: None Endocrine Surgical History: Reports: None Musculoskeletal Surgical History: Reports: Other (See Below) Other Musculoskeletal Surgeries/Procedures:: left knee replacement, right knee surgery Oncologic Surgical History: Reports: None Social & Family History - Family History Family Medical History: Noncontributory - Tobacco Use Smoking Status *Q: Never Smoker Second Hand Smoke Exposure: No - Caffeine Use Caffeine Use: Reports: Coffee - Recreational Drug Use Recreational Drug Use: No H&P Review of Systems - Review of Systems: Review Of Systems: Comprehensive ROS is negative, except as noted in HPI. Exam - Exam Exam: See Below - Vital Signs Vital Signs: Last Vital Signs Temp 35.7 C L 01/15/20 17:20 Pulse 92 01/15/20 21:58 Resp 26 H 01/15/20 17:20 BP 152/98 H 01/15/20 21:58 Pulse Ox 94 L 01/15/20 17:20 Weight: 122.289 kg - Exam General: Alert, Oriented HEENT: Mucosa Moist & [place] Neck: Supple Lungs: Clear to Auscultation, Normal Respiratory Effort Cardiovascular: Regular Rate, Regular Rhythm GI/Abdominal Exam: Normal Bowel Sounds, Soft, Non-Tender Extremities: Non-Tender, No Pedal Edema Skin: Warm, Dry, Intact Neurological: Cranial Nerves Intact, Reflexes Equal Bilateral, Strength Equal Bilateral, Normal Gait, Normal Speech, Normal Tone, Sensation Intact. No: Focal Deficit - Patient Data Lab Results Last 24 hrs: Laboratory Results - last 24 hr 01/15/20 01/15/20 Range/Units 17:50 21:57 POC Glucose 155 H (60-110) mg/dL SARS Virus RNA (PCR) NEGATIVE (NEGATIVE) Sepsis Event Note - Evaluation Sepsis Screening Result: No Definite Risk - Focused Exam Vital Signs: Vital Signs Temp Pulse Pulse Resp BP BP Pulse Ox 01/15/20 21:58 92 152/98 H 01/15/20 17:20 35.7 C L 82 26 H 148/84 H 94 L Date Exam was Performed: 01/16/20 Time Exam was Performed: 10:58 Problem List Initiated/Reviewed/Updated: Yes Orders Last 24hrs: Active Orders 24 hr Category Date Time Status Patient Status [ADT] Routine ADT 01/15/20 17:39 Active Antiembolic Devices [RC] PER UNIT ROUTINE Care 01/15/20 23:06 Active Blood Glucose Check, Bedside [RC] TIDMEALS Care 01/15/20 23:05 Active Oxygen Therapy [RC] PRN Care 01/15/20 23:06 Active Telemetry Monitoring [Cardiac Monitoring] [RC] Q8H Care 01/15/20 17:47 Active Up ad Isa [RC] ASDIRECTED Care 01/15/20 23:05 Active VTE/DVT Education [RC] PER UNIT ROUTINE Care 01/15/20 23:06 Active Vital Signs [RC] Q4H Care 01/15/20 23:06 Active [employer] Diet [DIET] Diet 01/15/20 Breakfast Active Regular Diet [DIET] Diet 01/16/20 Breakfast Active Ang Head wo Cont [MR] Routine Exams 01/15/20 23:06 Ordered Brain w wo Cont [MR] Routine Exams 01/15/20 23:06 Ordered MRA Neck Without Contrast [Ang Neck wo Cont] [MR] Exams 01/15/20 23:06 Ordered Routine UA RFX YINKA AND CULT IF INDIC [URIN] Stat Lab 01/15/20 17:25 Ordered Insuln Asp Prot/Insulin Aspart [NovoLOG Mix 70-30] Med 01/15/20 21:37 Active 27 unit SUBCUT ACDINNER Insuln Asp Prot/Insulin Aspart [NovoLOG Mix 70-30] Med 01/16/20 07:30 Active 33 unit SUBCUT ACBREAKFAST Simvastatin [Zocor] Med 01/15/20 21:37 Active 20 mg PO QPM Sequential Compression Device [OM.PC] Per Unit Routine Oth 01/15/20 23:06 Ordered Resuscitation Status Routine Resus Stat 01/15/20 23:05 Ordered Medication Orders Insulin Aspart (Novolog Mix 70-30) 27 unit SUBCUT ACDINNER JAMES Insulin Aspart (Novolog Mix 70-30) 33 unit SUBCUT ACBREAKFAST JAMES Simvastatin (Zocor) 20 mg PO QPM JAMES Last Admin: 01/15/20 21:59 Dose: 20 mg Documented by: ABRAHAM Assessment/Plan Comment:: 79 yo male who presents with blurred vision of left eye and admitted for possible CVA. We will monitor overnight on telemetry. MRI brain has been ordered.
[2020-01-16] MEDS: Insuln Aspart Prot/Insulin Aspart 100 Units/ML 3 ML FlexPen SUBCUT SCH ×3 (00:09→17:34)
[2020-01-16 08:27] LABS: HEMOGLOBIN A1C 6.5 % (4.5-6.2)
--- NOTE | 2020-01-16 08:36 | MR ---
MR angiogram of brain Technique: [id number] MR angiogram study was obtained centered to the cach[place] dehe of [place] multiple MIP images were obtained. Findings: Distal vertebral arteries and basilar artery are patent with no stenosis. Distal internal carotid arteries within the carotid siphon are patent with no stenosis. Middle cerebral arteries and anterior cerebral arteries are patent with no stenosis. Posterior cerebral arteries are not optimally seen but proximal portions are patent without stenosis. Impression: 1. Poorly seen posterior cerebral arteries with proximal portions showing no stenosis. 2. Other portions of the MR angiogram of the brain showed no stenosis or occlusion. Diagnostic code #2 This report was dictated in MDT
--- NOTE | 2020-01-16 08:37 | MR ---
MRI brain Technique: T1 sagittal and coronal; T1, T2, FLAIR and diffusion axial Comparison: Prior head CT exam of 01/15/20 is available. Findings: Ventricles along with basal cisterns and sulci over the convexities are mildly prominent. Diffuse increased signal within the periventricular white matter and subcortical white matter most likely represent small vessel ischemic demyelination change. Small old infarct is noted within the left occipital lobe. Acute diffusion abnormality is seen within the posterior right parietal region. This area of abnormal diffusion measures about 3.4 cm in greatest dimension and is compatible with fairly acute ischemic infarct. No other abnormal diffusion areas are seen. No midline shift or mass-effect is appreciated. Impression: 1. Moderately large acute infarct within the posterior right parietal region. There is increased signal in this area on the FLAIR sequence which makes this an irreversible infarct. 2. Old small left occipital lobe infarct. 3. Small vessel ischemic demyelination change. Generalized atrophy. Diagnostic code #3 This report was dictated in MDT
[2020-01-16] MEDS ORDERED: Aspirin 81 MG Tab.Chew PO SCH (09:00)
--- NOTE | 2020-01-16 10:58 | PCM.PN ---
- General Info Date of Service: 01/16/20 - Review of Systems Systems Review Comment:: vision has improved - Patient Data Vitals - Most Recent: Last Vital Signs Temp 36.5 C 01/16/20 09:00 Pulse 106 H 01/16/20 09:00 Resp 19 01/16/20 09:00 BP 138/79 01/16/20 09:00 Pulse Ox 95 01/16/20 09:00 Weight - Most Recent: 122.289 kg I&O - Last 24 Hours: Intake & Output 01/15/20 01/16/20 01/16/20 22:59 06:59 14:59 Intake Total 500 Output Total 350 Balance 150 Lab Results Last 24 Hours: Laboratory Results - last 24 hr 01/15/20 01/15/20 01/15/20 Range/Units 17:50 21:57 23:10 POC Glucose 155 H (60-110) mg/dL Hemoglobin A1c (4.5-6.2) % Triglycerides (0-200) mg/dL Cholesterol (50-200) mg/dL LDL Cholesterol, Calc (60-180) mg/dL VLDL Cholesterol (5-55) mg/dL HDL Cholesterol (40-60) mg/dL Cholesterol/HDL Ratio (3.3-6.0) Urine Color YELLOW Urine Appearance CLEAR Urine pH 6.0 (5.0-8.0) Ur Specific [place] 1.020 (1.001-1.035) Urine Protein NEGATIVE (NEGATIVE) mg/dL Urine Glucose (UA) NEGATIVE (NEGATIVE) mg/dL Urine Ketones NEGATIVE (NEGATIVE) mg/dL Urine Occult Blood NEGATIVE (NEGATIVE) Urine Nitrite NEGATIVE (NEGATIVE) Urine Bilirubin NEGATIVE (NEGATIVE) Urine Urobilinogen 0.2 (<2.0) EU/dL Ur Leukocyte Esterase NEGATIVE (NEGATIVE) SARS Virus RNA (PCR) NEGATIVE (NEGATIVE) 01/16/20 01/16/20 01/16/20 Range/Units 06:17 08:08 08:08 POC Glucose 145 H (60-110) mg/dL Hemoglobin A1c 6.5 H (4.5-6.2) % Triglycerides 178 (0-200) mg/dL Cholesterol 130 (50-200) mg/dL LDL Cholesterol, Calc 50 L (60-180) mg/dL VLDL Cholesterol 35 (5-55) mg/dL HDL Cholesterol 44 (40-60) mg/dL Cholesterol/HDL Ratio 3.0 L (3.3-6.0) Urine Color Urine Appearance Urine pH (5.0-8.0) Ur Specific [place] (1.001-1.035) Urine Protein (NEGATIVE) mg/dL Urine Glucose (UA) (NEGATIVE) mg/dL Urine Ketones (NEGATIVE) mg/dL Urine Occult Blood (NEGATIVE) Urine Nitrite (NEGATIVE) Urine Bilirubin (NEGATIVE) Urine Urobilinogen (<2.0) EU/dL Ur Leukocyte Esterase (NEGATIVE) SARS Virus RNA (PCR) (NEGATIVE) Med Orders - Current: Current Medications Budesonide/Formoterol Fumarate (Symbicort 160-4.5 Mcg) 10.2 gm INH ASDIRECTED [facility] Insulin Aspart (Novolog Mix 70-30) 27 unit SUBCUT ACDINNER [facility] Last Admin: 01/16/20 00:09 Dose: Not Given Documented by: Insulin Aspart (Novolog Mix 70-30) 33 unit SUBCUT ACBREAKFAST [facility] Last Admin: 01/16/20 07:23 Dose: Not Given Documented by: Non-Formulary Medication (Gabapentin) 300 mg PO DAILY [facility] Simvastatin (Zocor) 40 mg PO QPM [facility] Discontinued Medications Aspirin (Aspirin) 324 mg PO ONETIME ONE Stop: 01/15/20 17:50 Last Admin: 01/15/20 17:51 Dose: 324 mg Documented by: Aspirin (Aspirin) Confirm Administered Dose 324 mg .ROUTE .STK-MED ONE Stop: 01/15/20 17:51 Last Admin: 01/15/20 17:58 Dose: Not Given Documented by: Aspirin (Aspirin) 81 mg PO QAM [facility] Last Admin: 01/16/20 09:59 Dose: 81 mg Documented by: Metoprolol Tartrate (Lopressor) 50 mg PO BID [facility] Last Admin: 01/15/20 21:58 Dose: 50 mg Documented by: Simvastatin (Zocor) 20 mg PO QPM [facility] Last Admin: 01/15/20 21:59 Dose: 20 mg Documented by: - Exam General: Alert, Oriented Neck: Supple Lungs: Clear to Auscultation, Normal Respiratory Effort Cardiovascular: Regular Rate, Regular Rhythm Extremities: Non-Tender, No Pedal Edema Skin: Warm, Dry, Intact Neurological: No New Focal Deficit Sepsis Event Note - Evaluation Sepsis Screening Result: No Definite Risk - Focused Exam Vital Signs: Vital Signs Temp Pulse Resp BP Pulse Ox 01/16/20 09:00 36.5 C 106 H 19 138/79 95 01/16/20 04:00 36.3 C 98 18 101/77 95 01/16/20 00:00 36.1 C 85 19 139/90 96 Date Exam was Performed: 01/16/20 Time Exam was Performed: 10:54 - Problem List Review Problem List Initiated/Reviewed/Updated: Yes - My Orders Last 24 Hours: My Active Orders 01/15/20 17:47 Telemetry Monitoring [Cardiac Monitoring] [RC] Q8H 01/15/20 21:37 Insuln Asp Prot/Insulin Aspart [NovoLOG Mix 70-30] 27 unit SUBCUT ACDINNER 01/15/20 23:05 Blood Glucose Check, Bedside [RC] TIDMEALS Up ad Isa [RC] ASDIRECTED Resuscitation Status Routine 01/15/20 23:06 Antiembolic Devices [RC] PER UNIT ROUTINE Oxygen Therapy [RC] PRN VTE/DVT Education [RC] PER UNIT ROUTINE Vital Signs [RC] Q4H Sequential Compression Device [OM.PC] Per Unit Routine 01/16/20 02:00 Discontinue Telemetry Monitoring [Cardiac Monitoring Discontinue] [RC] Click to Edit 01/16/20 07:30 Insuln Asp Prot/Insulin Aspart [NovoLOG Mix 70-30] 33 unit SUBCUT ACBREAKFAST 01/16/20 10:53 RT Post Treatment Assessment [RC] Click to Edit RT Pre-Treatment Assessment [RC] Click to Edit 01/16/20 11:00 Budesonide/Formoterol [Symbicort 160-4.5 MCG] 10.2 gm INH ASDIRECTED 01/16/20 21:00 Apixaban [Eliquis] 5 mg PO BID 01/17/20 09:00 Gabapentin 300 mg PO DAILY - Plan Plan:: 79 yo male admitted with CVA CVA: MRI brain reports acute right parietal infarct. Telemetry shows a.fib. I spoke with Dr. Jacobsen and as symptoms started two days ago and no bleeding seen on imaging felt safe to restart anticoagulation. Will start Eliquis this evening. Will monitor overnight and likely discharge home tomorrow. PT consulted.
[2020-01-16] MEDS: Metoprolol Tartrate 50 MG Tab PO SCH ×3 (11:34→22:41)
[2020-01-16] MEDS ORDERED: Simvastatin 20 MG Tab PO SCH (18:00)
[2020-01-16] MEDS: Apixaban 5 MG Tab PO SCH (20:15)
[2020-01-16] MEDS: Budesonide/Formoterol 160-4.5 MCG/Puff 6 GM Inhaler INH SCH (20:15)
[2020-01-17] MEDS: Budesonide/Formoterol 160-4.5 MCG/Puff 6 GM Inhaler INH SCH (06:13)
[2020-01-17] MEDS: Insuln Aspart Prot/Insulin Aspart 100 Units/ML 3 ML FlexPen SUBCUT SCH (08:04)
[2020-01-17] MEDS: Apixaban 5 MG Tab PO SCH (08:52)
[2020-01-17] MEDS ORDERED: Gabapentin 300 MG Cap PO SCH (09:00)
--- NOTE | 2020-01-17 10:17 | PCM.DCSUM1 ---
Discharge Summary - Discharge Data Discharge Date: 01/17/20 Discharge Disposition: Home, Self-Care 01 Condition: Good - Referral to Home Health Primary Care Physician: [facility] [place] - Patient Summary/Data Consults: Consultations 01/16/20 09:47 PT Evaluation and Treatment [CONS] Routine Hospital Course: 79 yo male with pmh of DM and hypertension who presented to the ED with complaint of blurred vision of the left eye for two days. In the ED he has a negative CT scan of the head. MRI of the brain reported acute right parietal stroke. He was found to be in atrial fibrillation on telemetry. He was monitored for two nights without any further neurological events. He did have resolution of his blurred vision. He was started on Eliquis. Today patient is requesting discharge home. He was discharged home to follow up with the [facility]. - Patient Instructions Diet: Diabetic Diet - Discharge Plan *PRESCRIPTION DRUG MONITORING PROGRAM REVIEWED*: Not Applicable *COPY OF PRESCRIPTION DRUG MONITORING REPORT IN PATIENT FLOR: Not Applicable Prescriptions/Med Rec: Apixaban [Eliquis] 5 mg PO BID #30 tablet Home Medications: Home Meds Aspirin 81 mg PO QAM 05/22/18 [History] Fish Oil/DHA/EPA [Fish Oil 1,200 MG] 1 cap PO QAM 05/22/18 [History] Insuln Asp Prot/Insulin Aspart [NovoLOG Mix 70-30] 27 unit SQ ACDINNER 05/22/18 [History] Liraglutide [Victoza] 1.2 mg SQ QAM 05/22/18 [History] Losartan [Cozaar] 100 mg PO QAM 05/22/18 [History] Metoprolol Tartrate 50 mg PO BID 05/22/18 [History] Simvastatin 20 mg PO QPM 05/22/18 [History] amLODIPine Besylate [Amlodipine Besylate] 10 mg PO QAM 05/22/18 [History] Insuln Asp Prot/Insulin Aspart [NovoLOG Mix 70-30] 33 units SQ ACBREAKFAST 05/24/18 [History] Multivitamin [Multivitamins] 1 each PO QAM 08/23/18 [History] metFORMIN [Glucophage] 500 mg PO TIDMEALS 08/23/18 [History] Budesonide/Formoterol Fumarate [Budesonide-Formoterol 160-4.5] 2 inh IH BID 01/15/20 [History] Erythromycin Base [Erythromycin 0.5% Ophth Oint] 1 applic EYEBOTH BEDTIME 01/16/20 [History] Apixaban [Eliquis] 5 mg PO BID #30 tablet 01/17/20 [Rx] Referrals: Linnea Jacobsen MD [Physician] - 02/03/20 3:30 pm Sung Gottlieb NP [Ordering Only Provider] - 01/23/20 8:30 am - Discharge Summary/Plan Comment DC Time >30 min.: No - Patient Data Vitals - Most Recent: Last Vital Signs Temp 36.3 C 01/17/20 07:30 Pulse 100 01/17/20 07:30 Resp 16 01/17/20 07:30 BP 141/89 H 01/17/20 07:30 Pulse Ox 97 01/17/20 07:30 Weight - Most Recent: 122.289 kg I&O - Last 24 hours: Intake & Output 01/16/20 01/17/20 01/17/20 22:59 06:59 14:59 Intake Total 1020 520 Output Total 450 Balance 1020 70 Lab Results - Last 24 hrs: Laboratory Results - last 24 hr 01/16/20 01/16/20 01/17/20 Range/Units 11:29 17:28 06:42 POC Glucose 166 H 147 H 170 H (60-110) mg/dL Med Orders - Current: Current Medications Apixaban (Eliquis) 5 mg PO BID [facility] Last Admin: 01/17/20 08:52 Dose: 5 mg Documented by: Insulin Aspart (Novolog Mix 70-30) 27 unit SUBCUT ACDINNER [facility] Last Admin: 01/16/20 17:34 Dose: 27 units Documented by: Insulin Aspart (Novolog Mix 70-30) 33 unit SUBCUT ACBREAKFAST [facility] Last Admin: 01/17/20 08:04 Dose: 33 units Documented by: Metoprolol Tartrate (Lopressor) 50 mg PO Q12H [facility] Last Admin: 01/16/20 22:41 Dose: Not Given Documented by: Budesonide/Formoterol 160-4.5 Mcg/Puff 6 Gm Inhaler 2 each INH BIDRT [facility] Last Admin: 01/17/20 06:13 Dose: Not Given Documented by: Simvastatin (Zocor) 40 mg PO QPM [facility] Last Admin: 01/16/20 17:35 Dose: 40 mg Documented by: Discontinued Medications Aspirin (Aspirin) 324 mg PO ONETIME ONE Stop: 01/15/20 17:50 Last Admin: 01/15/20 17:51 Dose: 324 mg Documented by: Aspirin (Aspirin) Confirm Administered Dose 324 mg .ROUTE .STK-MED ONE Stop: 01/15/20 17:51 Last Admin: 01/15/20 17:58 Dose: Not Given Documented by: Aspirin (Aspirin) 81 mg PO QAM [facility] Last Admin: 01/16/20 09:59 Dose: 81 mg Documented by: Metoprolol Tartrate (Lopressor) 50 mg PO BID [facility] Last Admin: 01/15/20 21:58 Dose: 50 mg Documented by: Simvastatin (Zocor) 20 mg PO QPM [facility] Last Admin: 01/15/20 21:59 Dose: 20 mg Documented by:
[2020-01-17] MEDS: Metoprolol Tartrate 50 MG Tab PO SCH (11:05)
--- NOTE | 2020-01-20 14:12 | ECHO ---
EXAM DATE: 01/15/20 PATIENT'S AGE: 79 The ECHO report has been scanned into [employer] and can be seen in this patient's EMR (Electronic Medical Record) under the REPORTS section. The report has also been scanned into PACS. [facility]
== END 2020-01-17 11:40 | disposition home or self-care (01) ==
LOC: MW.ED 17:13 → MW.MS 17:46
PROVIDERS: ADMIT Internal Medicine; ATTEND Internal Medicine
DX: I63.9 Cerebral infarction, unspecified (principal); I48.91 Unspecified atrial fibrillation; I10 Essential (primary) hypertension; J44.9 Chronic obstructive pulmonary disease, unspecified; E11.40 Type 2 diabetes mellitus with diabetic neuropathy, unspecified; E11.21 Type 2 diabetes mellitus with diabetic nephropathy; Z20.828 Contact with and (suspected) exposure to other viral communicable diseases; Z79.82 Long term (current) use of aspirin; Z79.899 Other long term (current) drug therapy; Z79.4 Long term (current) use of insulin
CPT/HCPCS: 36415; 70544; 70551; 80061; 81003; 82962; 83036; 87635; 93306; 97161; 99285; A9270; 99283; G0378; U0002

== ENCOUNTER 2020-06-25 02:07 | Inpatient (IN) | payer MEDICARE, BC, OTHER ==
[2020-06-25] MEDS ORDERED: Sodium Chloride 0.9% 1,000 ML IV ONE (02:10)
[2020-06-25] MEDS ORDERED: LORazepam 2 MG/ML SDV ONE (02:17)
[2020-06-25] MEDS ORDERED: Sodium Chloride 0.9% 2.5 ML Syringe FLUSH PRN ×2 (02:20→08:38)
[2020-06-25] MEDS ORDERED: Sodium Chloride 0.9% 10 ML Syringe FLUSH PRN (02:20)
[2020-06-25] MEDS ORDERED: LORazepam 2 MG/ML SDV IVPUSH ONE ×4 (02:23→16:08)
[2020-06-25] MEDS ORDERED: LORazepam 2 MG/ML SDV IVPUSH PRN ×3 (02:24→08:39)
[2020-06-25] MEDS ORDERED: Aspirin 300 MG Supp RECTAL ONE (02:44)
--- NOTE | 2020-06-25 02:44 | EDM.PDOC ---
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 He presents by ambulance from home. Last known well was about 9:00 PM this evening. Around 1 AM, the patient's went to go check on him and noted that he was having difficulty using his limbs. The ambulance was called. When paramedics arrived, they noted left-sided facial droop along with left upper extremity hemiparesis concerning for stroke. EMS declared a prehospital stroke code and expeditiously transported him to our emergency department. Paramedics did note one episode of generalized seizure activity in the ambulance but they did not note any postictal period and note that the patient was conversant immediately after the seizure activity stopped. Here in the emergency department, the patient is not oriented to time, place, or event. He voices no complaints but is disoriented and somewhat confused. ROS: Unable to obtain due to altered mental status Past medical history: Reviewed, no additional pertinent history. Surgical history: Reviewed in system, no additional pertinent history. Social history: Reviewed in system, no additional pertinent history. Family history: Reviewed in system, no additional pertinent history. PHYSICAL EXAM Vital signs reviewed. Nursing notes reviewed. Constitutional: Awake, alert, non-distressed. Head: Normocephalic, atraumatic. Eyes: Pupils 3 mm and reactive bilaterally EOMI, conjunctiva normal, no discharge, no scleral icterus. Gaze is deviated to the left. Ears, Nose, Throat: External ears and nose normal, moist oral mucosa. Cardiovascular: 2+ radial pulses bilaterally, capillary refill less than 2 seconds. Pulmonary: normal work of breathing, no accessory muscle use. Abdomen/GI: Obese, soft, nontender, nondistended, no guarding or rigidity, no masses. Musculoskeletal: No deformities. Integumentary: Appropriate color for ethnicity, warm, dry, no pallor or jaundice, no rash. Neurologic: Alert, oriented to person only, normal speech, left-sided facial droop, left upper extremity hemiparesis. Neuro exam limited by AMS, unable to test iangdh-[id number] and bhqw-[id number]. Unable to test dysdiadochokinesia. 5/5 strength in all extremities. Unable to test sensation. Psychiatric: Appropriate mood and affect, impulsive behavior, impaired recent memory. This patient was seen and evaluated during the 2019 SARS-CoV-2 novel coronavirus pandemic period. Community viral transmission is ongoing at time of this encounter and the emergency department is operating under pandemic response procedures. - Related Data Allergies Allergy/AdvReac Type Severity Reaction Status Date / Time No Known Allergies Allergy Verified 06/25/20 02:28 Home Meds: Home Meds Fish Oil/DHA/EPA [Fish Oil 1,200 MG] 1 cap PO QAM 05/22/18 [History] Insuln Asp Prot/Insulin Aspart [NovoLOG Mix 70-30] 27 unit SQ ACDINNER 05/22/18 [History] Liraglutide [Victoza] 1.2 mg SQ QAM 05/22/18 [History] Losartan [Cozaar] 100 mg PO QAM 05/22/18 [History] Metoprolol Tartrate 50 mg PO BID 05/22/18 [History] Simvastatin 20 mg PO QPM 05/22/18 [History] amLODIPine Besylate [Amlodipine Besylate] 10 mg PO QAM 05/22/18 [History] Insuln Asp Prot/Insulin Aspart [NovoLOG Mix 70-30] 33 units SQ ACBREAKFAST 05/24/18 [History] Multivitamin [Multivitamins] 1 each PO QAM 08/23/18 [History] metFORMIN [Glucophage] 500 mg PO TIDMEALS 08/23/18 [History] Budesonide/Formoterol Fumarate [Budesonide-Formoterol 160-4.5] 2 inh IH BID 01/15/20 [History] Erythromycin Base [Erythromycin 0.5% Ophth Oint] 1 applic EYEBOTH BEDTIME 01/16/20 [History] Apixaban [Eliquis] 5 mg PO BID #30 tablet 01/17/20 [Rx] Gabapentin [Neurontin] 1 cap PO BID 06/25/20 [History] Past Medical History HEENT History: Reports: Impaired Vision, Other (See Below) Other HEENT History: wears glasses Cardiovascular History: Reports: Afib, Hypertension Respiratory History: Reports: COPD Gastrointestinal History: Reports: None Genitourinary History: Reports: Diabetic Nephropathy Musculoskeletal History: Reports: Arthritis Neurological History: Reports: Neuropathy, Diabetic Psychiatric History: Reports: Depression Endocrine/Metabolic History: Reports: Diabetes, Type II Insulin Pump Model and Clergy Member: None Hematologic History: Reports: None Immunologic History: Reports: None Oncologic (Cancer) History: Reports: None Dermatologic History: Reports: None - Infectious Disease History Infectious Disease History: Reports: None - Past Surgical History Head Surgeries/Procedures: Reports: None HEENT Surgical History: Reports: Tonsillectomy Respiratory Surgical History: Reports: None GI Surgical History: Reports: Appendectomy Male Surgical History: Reports: None Endocrine Surgical History: Reports: None Musculoskeletal Surgical History: Reports: Knee Replacement, Other (See Below) Other Musculoskeletal Surgeries/Procedures:: left knee replacement, right knee surgery Oncologic Surgical History: Reports: None Social & Family History - Family History Family Medical History: No Pertinent Family History - Caffeine Use Caffeine Use: Reports: Coffee ED ROS GENERAL - Review of Systems Review Of Systems: See Below ED EXAM, NEURO - Physical Exam Exam: See Below #1 Interpretation EKG Interpretation Comments: 12-Lead ECG Interpretation Acquired: 2:58 AM Rhythm: Atrial fibrillation with rapid ventricular response Rate: 119 bpm [place]: Normal Intervals: Right bundle branch block Ectopy: None RV Strain: No obvious RV strain pattern. ST Segments/T-Waves: No notable changes Acute Ischemic Changes: None apparent Interpretation: No STEMI Course - Vital Signs Text/Narrative:: 79-year-old male presenting with stroke symptoms. Differential diagnosis includes but is not limited to: CVA, TIA, LVO, subarachnoid hemorrhage, meningitis, encephalitis, hypoglycemia, seizure disorder, electrolyte disturbance, arrhythmia, acidosis, uremia, occult trauma, subdural hemorrhage, intraparenchymal hemorrhage, overdose, and many others. On arrival to ED patient has obvious left-sided facial droop and left upper extremity hemiparesis. Stroke code was called prior to ambulance arrival. Blood glucose mildly elevated. Established additional IV access and send blood off. The patient then had a generalized seizure episode that lasted about 60 seconds, he received 2 mg of IV lorazepam to abort the seizure. Patient was then taken to the CT scanner for noncontrast head CT and angiogram studies of the head and neck. The patient's arrived to the bedside. She confirms that he was last seen normal about 9 PM this evening, which puts him out of the window for thrombo lytics. Additionally, the patient had 2 generalized seizures which would also preclude him from thrombolysis and he is on Eliquis for anticoagulation. After CT scan, we returned to the resuscitation bay. We obtained a twelve-lead EKG showing atrial fibrillation but no acute ischemia, also obtained a chest x- ray and placed a Castañeda catheter. Noncontrast head CT shows no acute findings, did note evolution of a previous small posterior distal right MCA infarction. Head and neck CTAs show no acute findings. Labs show mild leukocytosis and thrombocytosis. INR is normal. Lactate was elevated at 2.7. Venous blood gas shows a respiratory acidosis with pH of 7.29 and PCO2 of 60. Metabolic panel shows mildly low carbon dioxide of 17, renal insufficiency with creatinine of 1.5, glucose 231, negative troponin, negative TSH. Urinalysis bland, negative ethyl alcohol, negative COVID-19 swab. Chest x-ray is negative. Although the patient's presentation is concerning for any acute stroke with the facial droop and left-sided arm weakness, this could also be Pramod's paralysis given the 2 witnessed seizure episodes. He has no prior history of a seizure disorder. He will need to be admitted to the hospital for further work-up and evaluation and for neurology consultation. I did order a loading dose of IV levetiracetam along with some insulin for hyperglycemia. Patient will need to be admitted to the intensive care unit overnight for close monitoring. I spoke with the accepting hospitalist Dr. Low who agrees to admit. Last Recorded V/S: Last Vital Signs Temp 36.4 C 06/25/20 02:10 Pulse 106 H 06/25/20 05:01 Resp 21 H 06/25/20 05:01 BP 135/90 06/25/20 05:01 Pulse Ox 97 06/25/20 05:01 - Orders/Labs/Meds Orders: Active Orders 24 hr Category Date Time Status Assess Neurological Status [RC] CONTINUOUS Care 06/25/20 02:44 Active NIH Stroke Scale [RC] STAT Care 06/25/20 02:44 Active Nursing Bedside Swallow Screen [RC] STAT Care 06/25/20 02:44 Active Nothing Per Oral Diet [DIET] Diet 06/25/20 Dinner Active LORazepam [Ativan] Med 06/25/20 02:24 Active 2 mg IVPUSH ONETIME PRN Sodium Chloride 0.9% [Saline Flush] Med 06/25/20 02:20 Active 10 ml FLUSH ASDIRECTED PRN Sodium Chloride 0.9% [Saline Flush] Med 06/25/20 02:20 Active 2.5 ml FLUSH ASDIRECTED PRN Saline Lock Insert [OM.PC] Stat Oth 06/25/20 02:20 Ordered Thrombo/Fibrinolytic IV Contraind Stroke [AST] Stat Oth 06/25/20 02:44 Ordered Medication Orders Lorazepam (Ativan) 2 mg IVPUSH ONETIME PRN PRN Reason: Seizures Sodium Chloride (Saline Flush) 10 ml FLUSH ASDIRECTED PRN PRN Reason: Keep Vein Open Sodium Chloride (Saline Flush) 2.5 ml FLUSH ASDIRECTED PRN PRN Reason: Keep Vein Open Labs: Laboratory Tests 06/25/20 06/25/20 06/25/20 Range/Units 02:18 02:18 02:55 WBC 12.76 H (4.0-11.0) K/uL RBC 4.83 (4.50-5.90) M/uL Hgb 13.8 (13.0-17.0) g/dL Hct 43.3 (38.0-50.0) % MCV 89.6 (80.0-98.0) fL MCH 28.6 (27.0-32.0) pg MCHC 31.9 (31.0-37.0) g/dL RDW Std Deviation 44.9 (28.0-62.0) fl RDW Coeff of Kailey 14 (11.0-15.0) % Plt Count 401 H (150-400) K/uL MPV 8.90 (7.40-12.00) fL Neut % (Auto) 67.4 (48.0-80.0) % Lymph % (Auto) 22.0 (16.0-40.0) % Story % (Auto) 8.7 (0.0-15.0) % Eos % (Auto) 1.3 (0.0-7.0) % Baso % (Auto) 0.6 (0.0-1.5) % Neut # (Auto) 8.6 H (1.4-5.7) K/uL Lymph # (Auto) 2.8 H (0.6-2.4) K/uL Story # (Auto) 1.1 H (0.0-0.8) K/uL Eos # (Auto) 0.2 (0.0-0.7) K/uL Baso # (Auto) 0.1 (0.0-0.1) K/uL Nucleated RBC % 0.0 /100WBC Nucleated RBCs # 0 K/uL INR APTT (18.6-31.3) SEC VBG pH 7.29 L (7.31-7.41) VBG pCO2 60 H (35-45) mmHG VBG pO2 33 (30-40) mmHG VBG HCO3 29 (22-30) mEq/L VBG Total CO2 27 L (41-51) mmol/L VBG Base Excess 0.9 (-3.0-3.0) Lactate (0.20-2.00) mmol/L Sodium (136-148) mmol/L Potassium (3.5-5.1) mmol/L Chloride (98-107) mmol/L Carbon Dioxide (21.0-32.0) mmol/L BUN (7.0-18.0) mg/dL Creatinine (0.8-1.3) mg/dL Est Cr Clr Drug Dosing Estimated GFR (MDRD) ml/min Glucose (74-106) mg/dL Calcium (8.5-10.1) mg/dL Phosphorus (2.6-4.7) mg/dL Magnesium (1.8-2.4) mg/dL Total Bilirubin (0.2-1.0) mg/dL AST (15-37) IU/L ALT (14-63) IU/L Alkaline Phosphatase (46-116) U/L Troponin I (0.000-0.056) ng/mL Total Protein (6.4-8.2) g/dL Albumin (3.4-5.0) g/dL Globulin (2.6-4.0) g/dL Albumin/Globulin Ratio (0.9-1.6) TSH 3rd Generation (0.36-3.74) uIU/mL Urine Color Urine Appearance Urine pH (5.0-8.0) Ur Specific [place] (1.001-1.035) Urine Protein (NEGATIVE) mg/dL Urine Glucose (UA) (NEGATIVE) mg/dL Urine Ketones (NEGATIVE) mg/dL Urine Occult Blood (NEGATIVE) Urine Nitrite (NEGATIVE) Urine Bilirubin (NEGATIVE) Urine Urobilinogen (<2.0) EU/dL Ur Leukocyte Esterase (NEGATIVE) Ethyl Alcohol mg/dL SARS-CoV-2 RNA (MICHAEL) NEGATIVE (NEGATIVE) 06/25/20 06/25/20 06/25/20 Range/Units 03:05 03:05 03:05 WBC (4.0-11.0) K/uL RBC (4.50-5.90) M/uL Hgb (13.0-17.0) g/dL Hct (38.0-50.0) % MCV (80.0-98.0) fL MCH (27.0-32.0) pg MCHC (31.0-37.0) g/dL RDW Std Deviation (28.0-62.0) fl RDW Coeff of Kailey (11.0-15.0) % Plt Count (150-400) K/uL MPV (7.40-12.00) fL Neut % (Auto) (48.0-80.0) % Lymph % (Auto) (16.0-40.0) % Story % (Auto) (0.0-15.0) % Eos % (Auto) (0.0-7.0) % Baso % (Auto) (0.0-1.5) % Neut # (Auto) (1.4-5.7) K/uL Lymph # (Auto) (0.6-2.4) K/uL Story # (Auto) (0.0-0.8) K/uL Eos # (Auto) (0.0-0.7) K/uL Baso # (Auto) (0.0-0.1) K/uL Nucleated RBC % /100WBC Nucleated RBCs # K/uL INR 1.08 APTT 24.5 (18.6-31.3) SEC VBG pH (7.31-7.41) VBG pCO2 (35-45) mmHG VBG pO2 (30-40) mmHG VBG HCO3 (22-30) mEq/L VBG Total CO2 (41-51) mmol/L VBG Base Excess (-3.0-3.0) Lactate 2.7 H* (0.20-2.00) mmol/L Sodium 137 (136-148) mmol/L Potassium 4.5 (3.5-5.1) mmol/L Chloride 101 (98-107) mmol/L Carbon Dioxide 17.0 L (21.0-32.0) mmol/L BUN 21 H (7.0-18.0) mg/dL Creatinine 1.5 H (0.8-1.3) mg/dL Est Cr Clr Drug Dosing TNP Estimated GFR (MDRD) 44.9 ml/min Glucose 231 H (74-106) mg/dL Calcium 8.9 (8.5-10.1) mg/dL Phosphorus 5.2 H (2.6-4.7) mg/dL Magnesium 2.1 (1.8-2.4) mg/dL Total Bilirubin 0.3 (0.2-1.0) mg/dL AST 32 (15-37) IU/L ALT 41 (14-63) IU/L Alkaline Phosphatase 84 (46-116) U/L Troponin I < 0.050 (0.000-0.056) ng/mL Total Protein 6.6 (6.4-8.2) g/dL Albumin 3.1 L (3.4-5.0) g/dL Globulin 3.5 (2.6-4.0) g/dL Albumin/Globulin Ratio 0.9 (0.9-1.6) TSH 3rd Generation 2.90 (0.36-3.74) uIU/mL Urine Color Urine Appearance Urine pH (5.0-8.0) Ur Specific [place] (1.001-1.035) Urine Protein (NEGATIVE) mg/dL Urine Glucose (UA) (NEGATIVE) mg/dL Urine Ketones (NEGATIVE) mg/dL Urine Occult Blood (NEGATIVE) Urine Nitrite (NEGATIVE) Urine Bilirubin (NEGATIVE) Urine Urobilinogen (<2.0) EU/dL Ur Leukocyte Esterase (NEGATIVE) Ethyl Alcohol < 3.0 mg/dL SARS-CoV-2 RNA (MICHAEL) (NEGATIVE) 06/25/20 Range/Units 03:05 WBC (4.0-11.0) K/uL RBC (4.50-5.90) M/uL Hgb (13.0-17.0) g/dL Hct (38.0-50.0) % MCV (80.0-98.0) fL MCH (27.0-32.0) pg MCHC (31.0-37.0) g/dL RDW Std Deviation (28.0-62.0) fl RDW Coeff of [place] (11.0-15.0) % Plt Count (150-400) K/uL MPV (7.40-12.00) fL Neut % (Auto) (48.0-80.0) % Lymph % (Auto) (16.0-40.0) % Story % (Auto) (0.0-15.0) % Eos % (Auto) (0.0-7.0) % Baso % (Auto) (0.0-1.5) % Neut # (Auto) (1.4-5.7) K/uL Lymph # (Auto) (0.6-2.4) K/uL Story # (Auto) (0.0-0.8) K/uL Eos # (Auto) (0.0-0.7) K/uL Baso # (Auto) (0.0-0.1) K/uL Nucleated RBC % /100WBC Nucleated RBCs # K/uL INR APTT (18.6-31.3) SEC VBG pH (7.31-7.41) VBG pCO2 (35-45) mmHG VBG pO2 (30-40) mmHG VBG HCO3 (22-30) mEq/L VBG Total CO2 (41-51) mmol/L VBG Base Excess (-3.0-3.0) Lactate (0.20-2.00) mmol/L Sodium (136-148) mmol/L Potassium (3.5-5.1) mmol/L Chloride (98-107) mmol/L Carbon Dioxide (21.0-32.0) mmol/L BUN (7.0-18.0) mg/dL Creatinine (0.8-1.3) mg/dL Est Cr Clr Drug Dosing Estimated GFR (MDRD) ml/min Glucose (74-106) mg/dL Calcium (8.5-10.1) mg/dL Phosphorus (2.6-4.7) mg/dL Magnesium (1.8-2.4) mg/dL Total Bilirubin (0.2-1.0) mg/dL AST (15-37) IU/L ALT (14-63) IU/L Alkaline Phosphatase (46-116) U/L Troponin I (0.000-0.056) ng/mL Total Protein (6.4-8.2) g/dL Albumin (3.4-5.0) g/dL Globulin (2.6-4.0) g/dL Albumin/Globulin Ratio (0.9-1.6) TSH 3rd Generation (0.36-3.74) uIU/mL Urine Color YELLOW Urine Appearance CLEAR Urine pH 6.0 (5.0-8.0) Ur Specific [place] 1.025 (1.001-1.035) Urine Protein NEGATIVE (NEGATIVE) mg/dL Urine Glucose (UA) NEGATIVE (NEGATIVE) mg/dL Urine Ketones NEGATIVE (NEGATIVE) mg/dL Urine Occult Blood NEGATIVE (NEGATIVE) Urine Nitrite NEGATIVE (NEGATIVE) Urine Bilirubin NEGATIVE (NEGATIVE) Urine Urobilinogen 0.2 (<2.0) EU/dL Ur Leukocyte Esterase NEGATIVE (NEGATIVE) Ethyl Alcohol mg/dL SARS-CoV-2 RNA (MICHAEL) (NEGATIVE) Meds: Medications Generic Name Dose Route Start Last Admin Trade Name Ruslan PRN Reason Stop Dose Admin Lorazepam 2 mg 06/25/20 02:24 Ativan IVPUSH ONETIME PRN Seizures Sodium Chloride 10 ml 06/25/20 02:20 Saline Flush FLUSH ASDIRECTED PRN Keep Vein Open Sodium Chloride 2.5 ml 06/25/20 02:20 Saline Flush FLUSH ASDIRECTED PRN Keep Vein Open Discontinued Medications Generic Name Dose Route Start Last Admin Trade Name Ruslan PRN Reason Stop Dose Admin Aspirin 300 mg 06/25/20 02:44 06/25/20 02:49 Aspirin RECTAL 06/25/20 02:45 300 mg ONETIME ONE Administration Aspirin Confirm 06/25/20 02:47 06/25/20 02:53 Aspirin Administered 06/25/20 02:48 Not Given Dose 300 mg .ROUTE .STK-MED ONE Levetiracetam 4,500 mg/ 145 mls @ 460 mls/hr 06/25/20 03:53 06/25/20 04:43 Dextrose/Water IV 06/25/20 04:11 460 mls/hr ONETIME ONE Administration Insulin Human Regular 2 unit 06/25/20 03:55 06/25/20 04:32 Novolin R IVPUSH 06/25/20 03:56 2 units ONETIME ONE Administration Protocol Iopamidol 100 ml 06/25/20 03:30 06/25/20 03:31 Isovue Multipack-370 (76%) IVPUSH 06/25/20 03:31 100 ml ONETIME STA Administration Lorazepam Confirm 06/25/20 02:17 06/25/20 02:28 Ativan Administered 06/25/20 02:18 Not Given Dose 4 mg .ROUTE .STK-MED ONE Lorazepam 2 mg 06/25/20 02:23 06/25/20 02:49 Ativan IVPUSH 06/25/20 02:24 2 mg ONETIME ONE Administration Departure - Departure Time of Disposition: 04:05 Disposition: Admitted As Inpatient 64 Condition: Good Clinical Impression: Acute encephalopathy - Discharge Information Sepsis Event Note (ED) - Evaluation Sepsis Screening Result: No Definite Risk - Focused Exam Vital Signs: Vital Signs Temp Pulse Resp BP Pulse Ox Pulse Ox 06/25/20 02:44 130 H 21 H 144/83 H 100 06/25/20 02:10 36.4 C 106 H 20 171/112 H 96 06/25/20 02:07 100 - My Orders Last 24 Hours: My Active Orders 06/25/20 02:20 Sodium Chloride 0.9% [Saline Flush] 10 ml FLUSH ASDIRECTED PRN Sodium Chloride 0.9% [Saline Flush] 2.5 ml FLUSH ASDIRECTED PRN Saline Lock Insert [OM.PC] Stat 06/25/20 02:24 LORazepam [Ativan] 2 mg IVPUSH ONETIME PRN 06/25/20 02:44 Assess Neurological Status [RC] CONTINUOUS NIH Stroke Scale [RC] STAT Nursing Bedside Swallow Screen [RC] STAT Thrombo/Fibrinolytic IV Contraind Stroke [AST] Stat 06/25/20 Dinner Nothing Per Oral Diet [DIET] - Assessment/Plan Last 24 Hours: My Active Orders 06/25/20 02:20 Sodium Chloride 0.9% [Saline Flush] 10 ml FLUSH ASDIRECTED PRN Sodium Chloride 0.9% [Saline Flush] 2.5 ml FLUSH ASDIRECTED PRN Saline Lock Insert [OM.PC] Stat 06/25/20 02:24 LORazepam [Ativan] 2 mg IVPUSH ONETIME PRN 06/25/20 02:44 Assess Neurological Status [RC] CONTINUOUS NIH Stroke Scale [RC] STAT Nursing Bedside Swallow Screen [RC] STAT Thrombo/Fibrinolytic IV Contraind Stroke [AST] Stat 06/25/20 Dinner Nothing Per Oral Diet [DIET]
[2020-06-25] MEDS ORDERED: Aspirin 300 MG Supp ONE (02:47)
[2020-06-25 02:54] LABS: BLOOD UREA NITROGEN,BUN 21 mg/dL (7.0-18.0)
--- NOTE | 2020-06-25 03:12 | CT ---
INDICATION: Code stroke. Left-sided body weakness. History of stroke in January. COMPARISON: 01/15/2020 TECHNIQUE: CT examination of the head was performed with 3 mm thick axial, sagittal, and coronal sections without intravenous contrast. Images were obtained from the vertex of the skull through the skull base, and I examined the images with the brain and bone windows. Please note that all CT scans at this facility use dose modulation, iterative reconstruction, and/or weight-based dosing when appropriate to reduce radiation dose to as low as reasonably achievable. FINDINGS: : There is mild subcortical encephalomalacia in the high right posterior parietal region, consistent with an old right distal MCA infarct. This has become lower in density during the interval, representing appropriate evolution of a small infarct. There is a stable moderate-sized perivascular space in the superior medial right temporal lobe inferior to the posterior putamen. The rest of the brain is normal in appearance for the patient`s age on today`s study, with no sign of mass lesion, mass effect, hemorrhage, or edema. There is mild dilatation of the ventricles and sulci representing age-appropriate atrophy. There is moderate periventricular and subcortical white matter hypodensity representing age-appropriate small vessel ischemia. The visualized portions of the orbits are normal in appearance status post cataract surgery. The visualized portions of the paranasal sinuses and mastoids are clear. The osseous structures are normal in their appearance with no sign of abnormality in the skull base or calvarium. IMPRESSION: No sign of acute injury to the brain. Appropriate evolution of a small posterior distal right MCA infarct with progressive encephalomalacia in the subcortical white matter of the right high medial posterior parietal region. Stable mild, age-appropriate atrophy and moderate, age-appropriate small-vessel ischemic changes. Please note that all CT scans at this facility use dose modulation, iterative reconstruction, and/or weight-based dosing when appropriate to reduce radiation dose to as low as reasonably achievable. Dictated by Caleb Milligan MD @ Jun 25 2020 3:02AM Signed by Dr. Caleb Milligan @ Jun 25 2020 3:11AM
--- NOTE | 2020-06-25 03:16 | CT ---
DATE: 06/25/2020. CLINICAL HISTORY: Patient with acute neurological deficit. TECHNIQUE: Standard helical CT image acquisition through the head and neck was performed after intravenous contrast bolus enhancement. Multiplanar reconstructed images were performed and interpreted. COMPARISON: Head CT dated 01/15/2020. FINDINGS: The origins of the great vessels from the aortic arch are patent. The origins of the right and left vertebral arteries are patent. The common carotid arteries are patent. Mild calcified and noncalcified atherosclerotic plaque involves the right carotid bifurcation and carotid bulb but without resulting luminal stenosis of the proximal internal carotid artery. There is no significant stenosis at the origin of the left internal carotid artery. The rest of the cervical segments of the internal carotid arteries are patent up to their intracranial segments. The intracranial segments of the internal carotid arteries are patent, noting non-flow limiting atherosclerotic calcification throughout the carotid siphons. The vertebral arteries are codominant. The cervical segments of the vertebral arteries are patent. The intracranial segments of the vertebral arteries are patent, noting mild atherosclerotic calcification. The anterior and middle cerebral arteries are patent. The anterior communicating artery is visualized and within normal limits. The basilar trunk and posterior cerebral arteries are patent. There is normal opacification of major intracranial venous structures. The visualized lung apices are unremarkable. Layering secretions within the visualized trachea. The thyroid gland is unremarkable. There are degenerative changes in the cervical spine. IMPRESSION: 1. No intracranial proximal large vessel occlusion. 2. No hemodynamically significant luminal stenosis within the cervical arterial vasculature. Please note that all CT scans at this facility use dose modulation, iterative reconstruction, and/or weight-based dosing when appropriate to reduce radiation dose to as low as reasonably achievable. Dictated by Nolberto Callahan MD @ Jun 25 2020 8:55AM Signed by Dr. Nolberto Callahan @ Jun 25 2020 9:12AM
[2020-06-25] MEDS ORDERED: Iopamidol 755 MG/ML 500 ML Multipack Bottle IVPUSH STA (03:30)
[2020-06-25 03:39] LABS: CHLORIDE,CL 101 mmol/L (98-107); GLUCOSE RANDOM 231 mg/dL (74-106); POTASSIUM,K 4.5 mmol/L (3.5-5.1); SODIUM,NA 137 mmol/L (136-148)
[2020-06-25] MEDS ORDERED: levETIRAcetam 4,500 MG in Dextrose 5% in Water 100 ML IV ONE ×2 (03:53)
[2020-06-25] MEDS ORDERED: Insulin Regular, Human 100 Units/ML 10 ML Vial IVPUSH ONE (03:55)
--- NOTE | 2020-06-25 03:58 | CR ---
HISTORY: Code stroke. Left-sided weakness. 2 witnessed seizures. COMPARISON: 01/15/2020 FINDINGS: A portable erect AP view of the chest was obtained at 0315 hours. Again seen is mild prominence of interstitial markings throughout the lungs consistent with mild pulmonary fibrosis. No focal infiltrates or pleural effusion are seen. The heart remains top-normal in size. The mediastinum is normal in appearance. The osseous structures are normal in appearance for the patient`s age. IMPRESSION: No active disease seen in the chest. Stable mild prominence of interstitial markings consistent with mild pulmonary fibrosis. Heart remains top-normal in size. Dictated by Caleb Milliagn MD @ Jun 25 2020 3:54AM Signed by Dr. Caleb Milligan @ Jun 25 2020 3:56AM
[2020-06-25] MEDS ORDERED: Ondansetron 4 MG/2 ML SDV IVPUSH PRN (05:33)
--- NOTE | 2020-06-25 05:33 | PCM.HP.2 ---
H&P History of Present Illness - General Date of Service: 06/25/20 Admit Problem/Dx: Admission Diagnosis/Problem Admission Diagnosis/Problem Acute encephalopathy - History of Present Illness Initial Comments - Free Text/Narative: Patient is a 79-year-old man with a past medical history of diabetes mellitus, atrial fibrillation on Eliquis, hyperlipidemia, prior CVA in January without deficits, presenting with stroke symptoms via Ambulance. Reportedly last known well was about 9:00 PM this evening, and around 1 AM this morning, patient's went to go check on him and noted that he was having difficulty using his limbs and his speech was off. 911 was called, when EMS arrived, they noted left-sided facial droop along with left upper extremity hemiparesis concerning for stroke. On route, patient suffered an episode of generalized seizure activity in the ambulance with no post ictal period, by the time he arrived to ER he was confused, not oriented to time, place, or event. Patient was noted to have left-sided facial droop and left upper extremity hemiparesis.The patient then had a 2nd episode of generalized seizure episode that lasted about 60 seconds, he received 2 mg of IV lorazepam to abort the seizure. Patient was then taken to the CT scanner for noncontrast head CT and angiogram studies of the head and neck. Noncontrast head CT shows no acute findings, did note evolution of a previous small posterior distal right MCA infarction. Head and neck CTAs show no acute findings. twelve-lead EKG showing atrial fibrillation but no acute ischemia, also obtained a chest x-ray and placed a Castañeda catheter. Labs show mild leukocytosis and thrombocytosis. INR is normal. Lactate was elevated at 2.7. Venous blood gas shows a respiratory acidosis with pH of 7.29 and PCO2 of 60. Metabolic panel shows mildly low carbon dioxide of 17, renal insufficiency with creatinine of 1.5, glucose 231, negative troponin, negative TSH. Urinalysis bland, negative ethyl alcohol, negative COVID-19 swab. Chest x-ray is negative. Patient was not a candidate for TPA as he was outside the window, and is also on anticoagulation. Patient became increasingly somnolent upon receiving Ativan, was started on oxygen for respiratory support but was protecting his air way. Patient received IV loading dose of Keppra in ER. Patient was admitted for further management to ICU. - Related Data Allergies/Adverse Reactions: Allergies Allergy/AdvReac Type Severity Reaction Status Date / Time No Known Allergies Allergy Verified 06/25/20 02:28 Home Medications: Home Meds Fish Oil/DHA/EPA [Fish Oil 1,200 MG] 1 cap PO QAM 05/22/18 [History] Insuln Asp Prot/Insulin Aspart [NovoLOG Mix 70-30] 27 unit SQ ACDINNER 05/22/18 [History] Liraglutide [Victoza] 1.2 mg SQ QAM 05/22/18 [History] Losartan [Cozaar] 100 mg PO QAM 05/22/18 [History] Metoprolol Tartrate 50 mg PO BID 05/22/18 [History] Simvastatin 20 mg PO QPM 05/22/18 [History] amLODIPine Besylate [Amlodipine Besylate] 10 mg PO QAM 05/22/18 [History] Insuln Asp Prot/Insulin Aspart [NovoLOG Mix 70-30] 33 units SQ ACBREAKFAST 05/24/18 [History] Multivitamin [Multivitamins] 1 each PO QAM 08/23/18 [History] metFORMIN [Glucophage] 500 mg PO TIDMEALS 08/23/18 [History] Budesonide/Formoterol Fumarate [Budesonide-Formoterol 160-4.5] 2 inh IH BID 01/15/20 [History] Erythromycin Base [Erythromycin 0.5% Ophth Oint] 1 applic EYEBOTH BEDTIME 01/16/20 [History] Apixaban [Eliquis] 5 mg PO BID #30 tablet 01/17/20 [Rx] Gabapentin [Neurontin] 1 cap PO BID 06/25/20 [History] Past Medical History HEENT History: Reports: Impaired Vision, Other (See Below) Other HEENT History: wears glasses Cardiovascular History: Reports: Afib, Hypertension Respiratory History: Reports: COPD Gastrointestinal History: Reports: None Genitourinary History: Reports: Diabetic Nephropathy Musculoskeletal History: Reports: Arthritis Neurological History: Reports: CVA, Neuropathy, Diabetic Psychiatric History: Reports: Depression Endocrine/Metabolic History: Reports: Diabetes, Type II Insulin Pump Model and Bean Viner: None Hematologic History: Reports: None Immunologic History: Reports: None Oncologic (Cancer) History: Reports: None Dermatologic History: Reports: None - Infectious Disease History Infectious Disease History: Reports: None - Past Surgical History Head Surgeries/Procedures: Reports: None HEENT Surgical History: Reports: Tonsillectomy Respiratory Surgical History: Reports: None GI Surgical History: Reports: Appendectomy Male Surgical History: Reports: None Endocrine Surgical History: Reports: None Musculoskeletal Surgical History: Reports: Knee Replacement, Other (See Below) Other Musculoskeletal Surgeries/Procedures:: left knee replacement, right knee surgery Oncologic Surgical History: Reports: None Social & Family History - Family History Family Medical History: No Pertinent Family History - Tobacco Use Tobacco Use Status *Q: Never Tobacco User - Caffeine Use Caffeine Use: Reports: None H&P Review of Systems - Review of Systems: Review Of Systems: Unable To Obtain Reason Not Obtained: somnolent Exam - Exam Exam: See Below - Vital Signs Vital Signs: Last Vital Signs Temp 36.4 C 06/25/20 02:10 Pulse 106 H 06/25/20 05:01 Resp 21 H 06/25/20 05:01 BP 135/90 06/25/20 05:01 Pulse Ox 97 06/25/20 05:01 Weight: 119 kg - Exam General: Mild Distress. No: Alert, Oriented, Cooperative Neck: Supple, Trachea Midline Lungs: Normal Respiratory Effort, Decreased Breath Sounds. No: Crackles, Rales Cardiovascular: Normal S1, Normal S2, Irregular Rhythm. No: Regular Rhythm GI/Abdominal Exam: Normal Bowel Sounds, Soft, Non-Tender Peripheral Pulses: 3+: Dorsalis Pedis (L), Dorsalis Pedis (R) Skin: Warm, Dry Neurological: Sensation Intact Neuro Extensive - Mental Status: Extensor Response to Pain, Withdraws to Pain, Other (moving all 4 extremities, right UE has good tone and 4/5 strength, left has slightly decreased tone compared to right). No: Alert, Oriented x3, Opens Eyes to Commands Neuro Extensive - Motor, Sensory, Reflexes: No: Facial Palsy w Forehead, Facial Palsy wo Forehead - Patient Data Lab Results Last 24 hrs: Laboratory Results - last 24 hr 06/25/20 06/25/20 06/25/20 Range/Units 02:18 02:18 02:55 WBC 12.76 H (4.0-11.0) K/uL RBC 4.83 (4.50-5.90) M/uL Hgb 13.8 (13.0-17.0) g/dL Hct 43.3 (38.0-50.0) % MCV 89.6 (80.0-98.0) fL MCH 28.6 (27.0-32.0) pg MCHC 31.9 (31.0-37.0) g/dL RDW Std Deviation 44.9 (28.0-62.0) fl RDW Coeff of Kailey 14 (11.0-15.0) % Plt Count 401 H (150-400) K/uL MPV 8.90 (7.40-12.00) fL Neut % (Auto) 67.4 (48.0-80.0) % Lymph % (Auto) 22.0 (16.0-40.0) % [place] % (Auto) 8.7 (0.0-15.0) % Eos % (Auto) 1.3 (0.0-7.0) % Baso % (Auto) 0.6 (0.0-1.5) % Neut # (Auto) 8.6 H (1.4-5.7) K/uL Lymph # (Auto) 2.8 H (0.6-2.4) K/uL [place] # (Auto) 1.1 H (0.0-0.8) K/uL Eos # (Auto) 0.2 (0.0-0.7) K/uL Baso # (Auto) 0.1 (0.0-0.1) K/uL Nucleated RBC % 0.0 /100WBC Nucleated RBCs # 0 K/uL INR APTT (18.6-31.3) SEC VBG pH 7.29 L (7.31-7.41) VBG pCO2 60 H (35-45) mmHG VBG pO2 33 (30-40) mmHG VBG HCO3 29 (22-30) mEq/L VBG Total CO2 27 L (41-51) mmol/L VBG Base Excess 0.9 (-3.0-3.0) Lactate (0.20-2.00) mmol/L Sodium (136-148) mmol/L Potassium (3.5-5.1) mmol/L Chloride (98-107) mmol/L Carbon Dioxide (21.0-32.0) mmol/L BUN (7.0-18.0) mg/dL Creatinine (0.8-1.3) mg/dL Est Cr Clr Drug Dosing Estimated GFR (MDRD) ml/min Glucose (74-106) mg/dL Calcium (8.5-10.1) mg/dL Phosphorus (2.6-4.7) mg/dL Magnesium (1.8-2.4) mg/dL Total Bilirubin (0.2-1.0) mg/dL AST (15-37) IU/L ALT (14-63) IU/L Alkaline Phosphatase (46-116) U/L Troponin I (0.000-0.056) ng/mL Total Protein (6.4-8.2) g/dL Albumin (3.4-5.0) g/dL Globulin (2.6-4.0) g/dL Albumin/Globulin Ratio (0.9-1.6) TSH 3rd Generation (0.36-3.74) uIU/mL Urine Color Urine Appearance Urine pH (5.0-8.0) Ur Specific [place] (1.001-1.035) Urine Protein (NEGATIVE) mg/dL Urine Glucose (UA) (NEGATIVE) mg/dL Urine Ketones (NEGATIVE) mg/dL Urine Occult Blood (NEGATIVE) Urine Nitrite (NEGATIVE) Urine Bilirubin (NEGATIVE) Urine Urobilinogen (<2.0) EU/dL Ur Leukocyte Esterase (NEGATIVE) Ethyl Alcohol mg/dL SARS-CoV-2 RNA (MICHAEL) NEGATIVE (NEGATIVE) 06/25/20 06/25/20 06/25/20 Range/Units 03:05 03:05 03:05 WBC (4.0-11.0) K/uL RBC (4.50-5.90) M/uL Hgb (13.0-17.0) g/dL Hct (38.0-50.0) % MCV (80.0-98.0) fL MCH (27.0-32.0) pg MCHC (31.0-37.0) g/dL RDW Std Deviation (28.0-62.0) fl RDW Coeff of Kailey (11.0-15.0) % Plt Count (150-400) K/uL MPV (7.40-12.00) fL Neut % (Auto) (48.0-80.0) % Lymph % (Auto) (16.0-40.0) % [place] % (Auto) (0.0-15.0) % Eos % (Auto) (0.0-7.0) % Baso % (Auto) (0.0-1.5) % Neut # (Auto) (1.4-5.7) K/uL Lymph # (Auto) (0.6-2.4) K/uL [place] # (Auto) (0.0-0.8) K/uL Eos # (Auto) (0.0-0.7) K/uL Baso # (Auto) (0.0-0.1) K/uL Nucleated RBC % /100WBC Nucleated RBCs # K/uL INR 1.08 APTT 24.5 (18.6-31.3) SEC VBG pH (7.31-7.41) VBG pCO2 (35-45) mmHG VBG pO2 (30-40) mmHG VBG HCO3 (22-30) mEq/L VBG Total CO2 (41-51) mmol/L VBG Base Excess (-3.0-3.0) Lactate 2.7 H* (0.20-2.00) mmol/L Sodium 137 (136-148) mmol/L Potassium 4.5 (3.5-5.1) mmol/L Chloride 101 (98-107) mmol/L Carbon Dioxide 17.0 L (21.0-32.0) mmol/L BUN 21 H (7.0-18.0) mg/dL Creatinine 1.5 H (0.8-1.3) mg/dL Est Cr Clr Drug Dosing TNP Estimated GFR (MDRD) 44.9 ml/min Glucose 231 H (74-106) mg/dL Calcium 8.9 (8.5-10.1) mg/dL Phosphorus 5.2 H (2.6-4.7) mg/dL Magnesium 2.1 (1.8-2.4) mg/dL Total Bilirubin 0.3 (0.2-1.0) mg/dL AST 32 (15-37) IU/L ALT 41 (14-63) IU/L Alkaline Phosphatase 84 (46-116) U/L Troponin I < 0.050 (0.000-0.056) ng/mL Total Protein 6.6 (6.4-8.2) g/dL Albumin 3.1 L (3.4-5.0) g/dL Globulin 3.5 (2.6-4.0) g/dL Albumin/Globulin Ratio 0.9 (0.9-1.6) TSH 3rd Generation 2.90 (0.36-3.74) uIU/mL Urine Color Urine Appearance Urine pH (5.0-8.0) Ur Specific [place] (1.001-1.035) Urine Protein (NEGATIVE) mg/dL Urine Glucose (UA) (NEGATIVE) mg/dL Urine Ketones (NEGATIVE) mg/dL Urine Occult Blood (NEGATIVE) Urine Nitrite (NEGATIVE) Urine Bilirubin (NEGATIVE) Urine Urobilinogen (<2.0) EU/dL Ur Leukocyte Esterase (NEGATIVE) Ethyl Alcohol < 3.0 mg/dL SARS-CoV-2 RNA (MICHAEL) (NEGATIVE) 06/25/20 Range/Units 03:05 WBC (4.0-11.0) K/uL RBC (4.50-5.90) M/uL Hgb (13.0-17.0) g/dL Hct (38.0-50.0) % MCV (80.0-98.0) fL MCH (27.0-32.0) pg MCHC (31.0-37.0) g/dL RDW Std Deviation (28.0-62.0) fl RDW Coeff of Kailey (11.0-15.0) % Plt Count (150-400) K/uL MPV (7.40-12.00) fL Neut % (Auto) (48.0-80.0) % Lymph % (Auto) (16.0-40.0) % [place] % (Auto) (0.0-15.0) % Eos % (Auto) (0.0-7.0) % Baso % (Auto) (0.0-1.5) % Neut # (Auto) (1.4-5.7) K/uL Lymph # (Auto) (0.6-2.4) K/uL [place] # (Auto) (0.0-0.8) K/uL Eos # (Auto) (0.0-0.7) K/uL Baso # (Auto) (0.0-0.1) K/uL Nucleated RBC % /100WBC Nucleated RBCs # K/uL INR APTT (18.6-31.3) SEC VBG pH (7.31-7.41) VBG pCO2 (35-45) mmHG VBG pO2 (30-40) mmHG VBG HCO3 (22-30) mEq/L VBG Total CO2 (41-51) mmol/L VBG Base Excess (-3.0-3.0) Lactate (0.20-2.00) mmol/L Sodium (136-148) mmol/L Potassium (3.5-5.1) mmol/L Chloride (98-107) mmol/L Carbon Dioxide (21.0-32.0) mmol/L BUN (7.0-18.0) mg/dL Creatinine (0.8-1.3) mg/dL Est Cr Clr Drug Dosing Estimated GFR (MDRD) ml/min Glucose (74-106) mg/dL Calcium (8.5-10.1) mg/dL Phosphorus (2.6-4.7) mg/dL Magnesium (1.8-2.4) mg/dL Total Bilirubin (0.2-1.0) mg/dL AST (15-37) IU/L ALT (14-63) IU/L Alkaline Phosphatase (46-116) U/L Troponin I (0.000-0.056) ng/mL Total Protein (6.4-8.2) g/dL Albumin (3.4-5.0) g/dL Globulin (2.6-4.0) g/dL Albumin/Globulin Ratio (0.9-1.6) TSH 3rd Generation (0.36-3.74) uIU/mL Urine Color YELLOW Urine Appearance CLEAR Urine pH 6.0 (5.0-8.0) Ur Specific [place] 1.025 (1.001-1.035) Urine Protein NEGATIVE (NEGATIVE) mg/dL Urine Glucose (UA) NEGATIVE (NEGATIVE) mg/dL Urine Ketones NEGATIVE (NEGATIVE) mg/dL Urine Occult Blood NEGATIVE (NEGATIVE) Urine Nitrite NEGATIVE (NEGATIVE) Urine Bilirubin NEGATIVE (NEGATIVE) Urine Urobilinogen 0.2 (<2.0) EU/dL Ur Leukocyte Esterase NEGATIVE (NEGATIVE) Ethyl Alcohol mg/dL SARS-CoV-2 RNA (MICHAEL) (NEGATIVE) Result Diagrams: 06/25/20 02:18 06/25/20 03:05 Sepsis Event Note - Evaluation Sepsis Screening Result: No Definite Risk - Focused Exam Vital Signs: Vital Signs Temp Pulse Resp BP Pulse Ox Pulse Ox 06/25/20 05:01 106 H 21 H 135/90 97 06/25/20 04:14 107 H 24 H 137/96 H 91 L 06/25/20 03:11 142 H 22 H 120/76 99 06/25/20 02:44 130 H 21 H 144/83 H 100 06/25/20 02:19 96 19 184/101 H 96 06/25/20 02:10 36.4 C 106 H 20 171/112 H 96 06/25/20 02:07 100 *Q Meaningful Use (ADM) - Stroke *Q Thrombolytic/Fibrinolytic Contraindications Stroke *Q: Med/TX Not Indicated/Need - Problem List (1) Acute encephalopathy SNOMED Code(s): 62587135, 788849949 ICD Code: G93.40 - ENCEPHALOPATHY, UNSPECIFIED Status: Acute Current Visit: Yes (2) Generalized seizure SNOMED Code(s): 048264953 ICD Code: R56.9 - UNSPECIFIED CONVULSIONS Status: Acute Current Visit: Yes (3) CVA (cerebral vascular accident) SNOMED Code(s): 676097567 ICD Code: I63.9 - CEREBRAL INFARCTION, UNSPECIFIED Status: Acute Current Visit: No (4) Afib SNOMED Code(s): 13758856 ICD Code: I48.91 - UNSPECIFIED ATRIAL FIBRILLATION Status: Acute Current Visit: Yes Problem List Initiated/Reviewed/Updated: Yes Orders Last 24hrs: Active Orders 24 hr Category Date Time Status Admission Status [Patient Status] [ADT] Stat ADT 06/25/20 03:56 Active Assess Neurological Status [RC] CONTINUOUS Care 06/25/20 02:44 Active NIH Stroke Scale [RC] STAT Care 06/25/20 02:44 Active Nursing Bedside Swallow Screen [RC] STAT Care 06/25/20 02:44 Active Nothing Per Oral Diet [DIET] Diet 06/25/20 Dinner Active LORazepam [Ativan] Med 06/25/20 02:24 Active 2 mg IVPUSH ONETIME PRN Sodium Chloride 0.9% [Saline Flush] Med 06/25/20 02:20 Active 10 ml FLUSH ASDIRECTED PRN Sodium Chloride 0.9% [Saline Flush] Med 06/25/20 02:20 Active 2.5 ml FLUSH ASDIRECTED PRN Saline Lock Insert [OM.PC] Stat Oth 06/25/20 02:20 Ordered Thrombo/Fibrinolytic IV Contraind Stroke [AST] Stat Oth 06/25/20 02:44 Ordered Medication Orders Lorazepam (Ativan) 2 mg IVPUSH ONETIME PRN PRN Reason: Seizures Sodium Chloride (Saline Flush) 10 ml FLUSH ASDIRECTED PRN PRN Reason: Keep Vein Open Sodium Chloride (Saline Flush) 2.5 ml FLUSH ASDIRECTED PRN PRN Reason: Keep Vein Open Assessment/Plan Comment:: 79 y/o M admitted, for Seizures, possible stroke vs Pramod paralysis CT scan head, CTA head/neck negative admit to icu for close neurological monitoring cont ativan as needed cont keppra 500 BID obtain MRI brain cont IV fluids for hydration NPO for now SSI, q6h Accu checks
[2020-06-25] MEDS ORDERED: Lactated Ringers 1,000 ML IV ONE (05:38)
[2020-06-25] MEDS ORDERED: Lactated Ringers 1,000 ML IV SCH ×2 (05:39→05:45)
[2020-06-25] MEDS ORDERED: Glucagon,Human Recombinant 1 MG Vial IM PRN (05:42)
[2020-06-25] MEDS ORDERED: 50% Dextrose in Water 50 ML Syringe IV PRN (05:42)
[2020-06-25] MEDS ORDERED: 50% Dextrose in Water 50 ML Syringe IVPUSH PRN (05:46)
[2020-06-25] MEDS: Insulin Aspart 100 Units/ML 3 ML Pen SUBCUT SCH ×4 (06:04→23:26)
--- NOTE | 2020-06-25 08:46 | PCM.SN.2 ---
- Free Text/Narrative Note: Nursing staff from ICU called reporting patient is awake and alert with slight confusion. I went to ICU to assess patient. Patient is alert oriented he is intermittently confused. But he is asking appropriate questions like why I see in ICU what happened why my so sick? He is pulling at wires and tubing but he is easily reoriented. He is moving oall extremities appropriately. Patient became nauseated and vomited yellow emesis. He was suctioned and turned on his side. No seizure activity he remained alert during the entire episode. I spoke with Dr. Jacobsen neurology, on consult. She recommended due to his size increasing Keppra to 750 mg twice daily. She also recommended MRI of brain to complete stroke work-up. She will be over to see him this afternoon. I appreciate her assistance on this patient.
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
[2020-06-25] MEDS: Haloperidol Lactate 5 MG/ML SDV IM PRN (13:45)
[2020-06-25] MEDS: Lactated Ringers 1,000 ML IV SCH ×2 (14:52→22:50)
[2020-06-25] MEDS: LORazepam 2 MG/ML SDV IVPUSH PRN ×2 (15:40→23:08)
[2020-06-25] MEDS ORDERED: diphenhydrAMINE 50 MG/ML SDV IVPUSH ONE (16:08)
[2020-06-25] MEDS ORDERED: Haloperidol Lactate 5 MG/ML SDV IM ONE (16:08)
--- NOTE | 2020-06-25 17:27 | MR ---
INDICATION: Left-sided weakness. TECHNIQUE: Axial diffusion and T2, as well as coronal T1 sequences were acquired through the brain. COMPARISON: CT brain 06/25/2020. FINDINGS: Limited sequence acquisition. Motion artifact significantly degrades image quality. The axial T2 and coronal T1 sequences are nondiagnostic. No diffusion restriction to suggest acute infarction within exam limitations. Small to moderate chronic infarction in the right parietal lobe. Small chronic infarction in the left occipital lobe. IMPRESSION: 1. Significantly limited exam secondary to motion artifact and truncated sequence acquisition. 2. No evidence for acute infarction within exam limitations. 3. 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 Dictated by Aron Starr MD @ Jun 25 2020 5:16PM Signed by Dr. Aron Starr @ Jun 25 2020 5:26PM
[2020-06-25] MEDS: Diltiazem 25 MG/5 ML SDV IVPUSH PRN (17:33)
[2020-06-25] MEDS: Metoprolol Tartrate 50 MG Tab PO SCH (20:56)
[2020-06-25] MEDS: Simvastatin 10 MG Tab PO SCH (20:57)
[2020-06-25] MEDS: Patient's Own Medication 1 Each INH SCH (21:18)
[2020-06-25] MEDS: Albuterol/Ipratropium 3.0-0.5 MG/3 ML Neb Soln NEB PRN (23:09)
[2020-06-25] MEDS: Erythromycin Base 0.5% Ophth Oint 1 GM Tube EYEBOTH SCH (23:09)
[2020-06-26] MEDS: Lactated Ringers 1,000 ML IV SCH ×2 (01:38→10:30)
[2020-06-26] MEDS: Haloperidol Lactate 5 MG/ML SDV IM PRN (01:50)
[2020-06-26] MEDS: Insulin Aspart 100 Units/ML 3 ML Pen SUBCUT SCH ×3 (06:04→17:03)
[2020-06-26] MEDS: Patient's Own Medication 1 Each INH SCH (06:06)
[2020-06-26 06:53] LABS: BLOOD UREA NITROGEN,BUN 9 mg/dL (7.0-18.0); CARBON DIOXIDE,CO2 27.7 mmol/L (21.0-32.0); CHLORIDE,CL 104 mmol/L (98-107); GLUCOSE RANDOM 173 mg/dL (74-106); POTASSIUM,K 3.8 mmol/L (3.5-5.1); SODIUM,NA 141 mmol/L (136-148)
[2020-06-26] MEDS: Fish Oil/Omega-3 Fatty Acids 1 Gm Cap PO SCH ×2 (08:18→08:38)
[2020-06-26] MEDS: Metoprolol Tartrate 50 MG Tab PO SCH ×2 (08:18→20:01)
[2020-06-26] MEDS: Albuterol/Ipratropium 3.0-0.5 MG/3 ML Neb Soln NEB PRN ×2 (10:31→21:17)
[2020-06-26] MEDS: Budesonide/Formoterol 160-4.5 MCG/Puff 6 GM Inhaler INH SCH ×2 (12:04→20:49)
--- NOTE | 2020-06-26 12:46 | PCM.PN ---
- General Info Date of Service: 06/26/20 - Review of Systems Systems Review Comment:: no new complaints - Patient Data Vitals - Most Recent: Last Vital Signs Temp 37.1 C 06/26/20 08:00 Pulse 118 H 06/26/20 08:18 Resp 22 H 06/26/20 11:00 BP 113/83 06/26/20 11:00 Pulse Ox 95 06/26/20 11:00 Weight - Most Recent: 123.2 kg I&O - Last 24 Hours: Intake & Output 06/25/20 06/26/20 06/26/20 22:59 06:59 14:59 Intake Total 107 1560 Output Total 1600 650 Balance -1493 910 Lab Results Last 24 Hours: Laboratory Results - last 24 hr 06/25/20 06/25/20 06/25/20 Range/Units 13:26 17:46 23:26 WBC (4.0-11.0) K/uL RBC (4.50-5.90) M/uL Hgb (13.0-17.0) g/dL Hct (38.0-50.0) % MCV (80.0-98.0) fL MCH (27.0-32.0) pg MCHC (31.0-37.0) g/dL RDW Std Deviation (28.0-62.0) fl RDW Coeff of Kailey (11.0-15.0) % Plt Count (150-400) K/uL MPV (7.40-12.00) fL Neut % (Auto) (48.0-80.0) % Lymph % (Auto) (16.0-40.0) % [place] % (Auto) (0.0-15.0) % Eos % (Auto) (0.0-7.0) % Baso % (Auto) (0.0-1.5) % Neut # (Auto) (1.4-5.7) K/uL Lymph # (Auto) (0.6-2.4) K/uL [place] # (Auto) (0.0-0.8) K/uL Eos # (Auto) (0.0-0.7) K/uL Baso # (Auto) (0.0-0.1) K/uL Nucleated RBC % /100WBC Nucleated RBCs # K/uL Sodium (136-148) mmol/L Potassium (3.5-5.1) mmol/L Chloride (98-107) mmol/L Carbon Dioxide (21.0-32.0) mmol/L BUN (7.0-18.0) mg/dL Creatinine (0.8-1.3) mg/dL Est Cr Clr Drug Dosing Estimated GFR (MDRD) ml/min Glucose (74-106) mg/dL POC Glucose 131 H 177 H 179 H (60-110) mg/dL Calcium (8.5-10.1) mg/dL Phosphorus (2.6-4.7) mg/dL Magnesium (1.8-2.4) mg/dL 06/26/20 06/26/20 06/26/20 Range/Units 05:50 05:50 06:00 WBC 12.13 H (4.0-11.0) K/uL RBC 4.36 L (4.50-5.90) M/uL Hgb 12.3 L (13.0-17.0) g/dL Hct 39.0 (38.0-50.0) % MCV 89.4 (80.0-98.0) fL MCH 28.2 (27.0-32.0) pg MCHC 31.5 (31.0-37.0) g/dL RDW Std Deviation 44.5 (28.0-62.0) fl RDW Coeff of Kailey 14 (11.0-15.0) % Plt Count 347 (150-400) K/uL MPV 9.80 (7.40-12.00) fL Neut % (Auto) 71.9 (48.0-80.0) % Lymph % (Auto) 15.4 L (16.0-40.0) % [place] % (Auto) 11.4 (0.0-15.0) % Eos % (Auto) 0.7 (0.0-7.0) % Baso % (Auto) 0.6 (0.0-1.5) % Neut # (Auto) 8.7 H (1.4-5.7) K/uL Lymph # (Auto) 1.9 (0.6-2.4) K/uL [place] # (Auto) 1.4 H (0.0-0.8) K/uL Eos # (Auto) 0.1 (0.0-0.7) K/uL Baso # (Auto) 0.1 (0.0-0.1) K/uL Nucleated RBC % 0.0 /100WBC Nucleated RBCs # 0 K/uL Sodium 141 (136-148) mmol/L Potassium 3.8 (3.5-5.1) mmol/L Chloride 104 (98-107) mmol/L Carbon Dioxide 27.7 (21.0-32.0) mmol/L BUN 9 (7.0-18.0) mg/dL Creatinine 0.9 (0.8-1.3) mg/dL Est Cr Clr Drug Dosing TNP Estimated GFR (MDRD) > 60.0 ml/min Glucose 173 H (74-106) mg/dL POC Glucose 169 H (60-110) mg/dL Calcium 8.8 (8.5-10.1) mg/dL Phosphorus 3.0 (2.6-4.7) mg/dL Magnesium 1.9 (1.8-2.4) mg/dL 06/26/20 Range/Units 12:07 WBC (4.0-11.0) K/uL RBC (4.50-5.90) M/uL Hgb (13.0-17.0) g/dL Hct (38.0-50.0) % MCV (80.0-98.0) fL MCH (27.0-32.0) pg MCHC (31.0-37.0) g/dL RDW Std Deviation (28.0-62.0) fl RDW Coeff of Kailey (11.0-15.0) % Plt Count (150-400) K/uL MPV (7.40-12.00) fL Neut % (Auto) (48.0-80.0) % Lymph % (Auto) (16.0-40.0) % [place] % (Auto) (0.0-15.0) % Eos % (Auto) (0.0-7.0) % Baso % (Auto) (0.0-1.5) % Neut # (Auto) (1.4-5.7) K/uL Lymph # (Auto) (0.6-2.4) K/uL [place] # (Auto) (0.0-0.8) K/uL Eos # (Auto) (0.0-0.7) K/uL Baso # (Auto) (0.0-0.1) K/uL Nucleated RBC % /100WBC Nucleated RBCs # K/uL Sodium (136-148) mmol/L Potassium (3.5-5.1) mmol/L Chloride (98-107) mmol/L Carbon Dioxide (21.0-32.0) mmol/L BUN (7.0-18.0) mg/dL Creatinine (0.8-1.3) mg/dL Est Cr Clr Drug Dosing Estimated GFR (MDRD) ml/min Glucose (74-106) mg/dL POC Glucose 176 H (60-110) mg/dL Calcium (8.5-10.1) mg/dL Phosphorus (2.6-4.7) mg/dL Magnesium (1.8-2.4) mg/dL Med Orders - Current: Current Medications Albuterol/Ipratropium (Duoneb 3.0-0.5 Mg/3 Ml) 3 ml NEB Q4HRRT PRN PRN Reason: Shortness Of Breath/wheezing Last Admin: 06/26/20 10:31 Dose: 3 ml Documented by: Apixaban (Eliquis) 5 mg PO BID [facility] Dextrose/Water (Dextrose 50% In Water) 50 ml IVPUSH ASDIRECTED PRN PRN Reason: Hypoglycemia Diltiazem HCl (Diltiazem) 20 mg IVPUSH Q4H PRN PRN Reason: Tachycardia Last Admin: 06/25/20 17:33 Dose: 20 mg Documented by: Erythromycin (Erythromycin 0.5% Ophth Oint) 1 gm EYEBOTH BEDTIME JAMES Last Admin: 06/25/20 23:09 Dose: 1 applic Documented by: Fish Oil (Fish Oil) 1 gm PO DAILY [facility] Last Admin: 06/26/20 08:38 Dose: Not Given Documented by: Glucagon (Glucagen) 1 mg IM ASDIRECTED PRN PRN Reason: Hypoglycemia Haloperidol Lactate (Haldol) 2 mg IM Q8H PRN PRN Reason: Agitation Last Admin: 06/26/20 01:50 Dose: 2 mg Documented by: Levetiracetam 750 mg/ Dextrose (/Water) 107.5 mls @ 440 mls/hr IV Q12H [facility] Last Admin: 06/26/20 04:31 Dose: 440 mls/hr Documented by: Lactated Ringer's (Ringers, Lactated) 1,000 mls @ 125 mls/hr IV ASDIRECTED [facility] Last Admin: 06/26/20 10:30 Dose: 125 mls/hr Documented by: Insulin Aspart (Novolog) 0 unit SUBCUT Q6H [facility]; Protocol Last Admin: 06/26/20 12:09 Dose: 1 units Documented by: Lorazepam (Ativan) 2 mg IVPUSH Q1H PRN PRN Reason: Seizures Lorazepam (Ativan) 1 mg IVPUSH Q4H PRN PRN Reason: Agitation Last Admin: 06/25/20 23:08 Dose: 1 mg Documented by: Metoprolol Tartrate (Lopressor) 50 mg PO BID [facility] Last Admin: 06/26/20 08:18 Dose: 50 mg Documented by: Ondansetron HCl (Zofran) 4 mg IVPUSH Q4H PRN PRN Reason: Nausea/Vomiting Last Admin: 06/25/20 08:34 Dose: 4 mg Documented by: Budesonide/Formoterol 160-4.5 Mcg/Puff 6 Gm Inhaler 2 each INH BIDRT [facility] Last Admin: 06/26/20 12:04 Dose: 2 each Documented by: Simvastatin (Zocor) 10 mg PO BEDTIME [facility] Last Admin: 06/25/20 20:57 Dose: 10 mg Documented by: Sodium Chloride (Saline Flush) 2.5 ml FLUSH ASDIRECTED PRN PRN Reason: Keep Vein Open Discontinued Medications Aspirin (Aspirin) 300 mg RECTAL ONETIME ONE Stop: 06/25/20 02:45 Last Admin: 06/25/20 02:49 Dose: 300 mg Documented by: Aspirin (Aspirin) Confirm Administered Dose 300 mg .ROUTE .STK-MED ONE Stop: 06/25/20 02:48 Last Admin: 06/25/20 02:53 Dose: Not Given Documented by: Dextrose/Water (Dextrose 50% In Water) 50 ml IV ASDIRECTED PRN PRN Reason: Hypoglycemia Diphenhydramine HCl (Benadryl) 25 mg IVPUSH ONETIME ONE Stop: 06/25/20 16:09 Last Admin: 06/25/20 16:20 Dose: 25 mg Documented by: Haloperidol Lactate (Haldol) 2 mg IM ONETIME ONE Stop: 06/25/20 16:09 Last Admin: 06/25/20 16:20 Dose: 2 mg Documented by: Levetiracetam 4,500 mg/ (Dextrose/Water) 145 mls @ 460 mls/hr IV ONETIME ONE Stop: 06/25/20 04:11 Last Admin: 06/25/20 04:43 Dose: 460 mls/hr Documented by: Lactated Ringer's (Ringers, Lactated) 1,000 mls @ 125 mls/hr IV ASDIRECTED [facility] Lactated Ringer's (Ringers, Lactated) 1,000 mls @ 999 mls/hr IV .BOLUS ONE Stop: 06/25/20 06:38 Last Admin: 06/25/20 05:53 Dose: 999 mls/hr Documented by: Lactated Ringer's (Ringers, Lactated) 1,000 mls @ 125 mls/hr IV ASDIRECTED [facility] Last Admin: 06/25/20 06:56 Dose: 125 mls/hr Documented by: Sodium Chloride (Normal Saline) 1,000 mls @ 999 mls/hr IV .BOLUS ONE Stop: 06/25/20 03:10 Last Admin: 06/25/20 06:04 Dose: 999 mls/hr Documented by: Lactated Ringer's (Ringers, Lactated) 1,000 mls @ 125 mls/hr IV Q8HR [facility] Last Admin: 06/25/20 22:50 Dose: Not Given Documented by: Insulin Human Regular (Novolin R) 2 unit IVPUSH ONETIME ONE; Protocol Stop: 06/25/20 03:56 Last Admin: 06/25/20 04:32 Dose: 2 units Documented by: Iopamidol (Isovue Multipack-370 (76%)) 100 ml IVPUSH ONETIME STA Stop: 06/25/20 03:31 Last Admin: 06/25/20 03:31 Dose: 100 ml Documented by: Lorazepam (Ativan) Confirm Administered Dose 4 mg .ROUTE .STK-MED ONE Stop: 06/25/20 02:18 Last Admin: 06/25/20 02:28 Dose: Not Given Documented by: Lorazepam (Ativan) 2 mg IVPUSH ONETIME ONE Stop: 06/25/20 02:24 Last Admin: 06/25/20 02:49 Dose: 2 mg Documented by: Lorazepam (Ativan) 2 mg IVPUSH ONETIME PRN PRN Reason: Seizures Lorazepam (Ativan) 2 mg IVPUSH ONETIME PRN PRN Reason: Seizures Lorazepam (Ativan) 1 mg IVPUSH ONETIME ONE Stop: 06/25/20 13:14 Last Admin: 06/25/20 13:22 Dose: 1 mg Documented by: Lorazepam (Ativan) 1 mg IVPUSH ONETIME ONE Stop: 06/25/20 13:26 Last Admin: 06/25/20 13:30 Dose: 1 mg Documented by: Lorazepam (Ativan) 2 mg IVPUSH ONETIME ONE Stop: 06/25/20 16:09 Last Admin: 06/25/20 16:20 Dose: 2 mg Documented by: Patient Own Medication (Ptom) 0 each INH BIDRT JAMES Last Admin: 06/26/20 06:06 Dose: Not Given Documented by: Sodium Chloride (Saline Flush) 10 ml FLUSH ASDIRECTED PRN PRN Reason: Keep Vein Open Sodium Chloride (Saline Flush) 2.5 ml FLUSH ASDIRECTED PRN PRN Reason: Keep Vein Open - Exam General: Alert, Oriented Lungs: Clear to Auscultation, Normal Respiratory Effort Cardiovascular: Regular Rate, Regular Rhythm GI/Abdominal Exam: Soft, Non-Tender, No Distention Extremities: Non-Tender, No Pedal Edema Skin: Warm, Dry, Intact Neurological: No New Focal Deficit Sepsis Event Note - Evaluation Sepsis Screening Result: No Definite Risk - Focused Exam Vital Signs: Vital Signs Temp Pulse Resp BP BP Pulse Ox 06/26/20 11:00 22 H 113/83 95 06/26/20 10:00 28 H 124/73 95 06/26/20 09:00 29 H 112/76 94 L 06/26/20 08:18 118 H 118/62 06/26/20 08:00 37.1 C 29 H 118/62 94 L 06/26/20 07:00 27 H 94 L 06/26/20 06:00 25 H 153/95 H 94 L 06/26/20 05:00 20 152/104 H 94 L 06/26/20 04:47 94 L 06/26/20 04:00 36.6 C 20 152/94 H 95 06/26/20 03:00 14 95 06/26/20 02:00 20 143/81 H 95 06/26/20 01:00 17 95 - Problem List Review Problem List Initiated/Reviewed/Updated: Yes - My Orders Last 24 Hours: My Active Orders 06/26/20 11:26 Consult to Physical Therapy [PT Evaluation and Treatment] [CONS] Routine 06/26/20 21:00 Apixaban [Eliquis] 5 mg PO BID - Plan Plan:: 79 y/o M admitted, for Seizures, possible stroke vs Pramod paralysis, mentation improved this morning CT scan head, CTA head/neck, MRI negative for acute stroke Seizure disorder: continue Keppra Possible stroke: continue eliquis, statin Advance diet PT and speech consulted SSI, q6h Accu checks
--- NOTE | 2020-06-26 14:17 | CR ---
INDICATION: Wheezing. TECHNIQUE: Chest 1 view Comparison: 06/25/2020. Findings: Cardiac silhouette is top-normal in size, similar to prior. Atherosclerotic aorta is again noted. Mild interstitial prominence is unchanged. No focal lung consolidation, pleural effusion or pneumothorax. Degenerative changes in the spine and shoulders. Impression: No acute cardiopulmonary abnormality. Dictated by Julian Matute MD @ Jun 26 2020 2:12PM Signed by Dr. Julian Matute @ Jun 26 2020 2:14PM
[2020-06-26] MEDS: Simvastatin 10 MG Tab PO SCH (20:00)
[2020-06-26] MEDS: Apixaban 5 MG Tab PO SCH (20:01)
[2020-06-26] MEDS: Erythromycin Base 0.5% Ophth Oint 1 GM Tube EYEBOTH SCH (20:01)
[2020-06-26] MEDS: LORazepam 2 MG/ML SDV IVPUSH PRN (22:09)
[2020-06-26] MEDS ORDERED: Haloperidol 5 MG Tab PO ONE (23:48)
[2020-06-27] MEDS: Diltiazem 25 MG/5 ML SDV IVPUSH PRN (05:00)
[2020-06-27 07:16] LABS: BLOOD UREA NITROGEN,BUN 10 mg/dL (7.0-18.0); CARBON DIOXIDE,CO2 28.1 mmol/L (21.0-32.0); CHLORIDE,CL 102 mmol/L (98-107); GLUCOSE RANDOM 179 mg/dL (74-106); POTASSIUM,K 3.4 mmol/L (3.5-5.1); SODIUM,NA 139 mmol/L (136-148)
[2020-06-27] MEDS: Budesonide/Formoterol 160-4.5 MCG/Puff 6 GM Inhaler INH SCH ×2 (08:22→23:28)
[2020-06-27] MEDS: Apixaban 5 MG Tab PO SCH ×2 (08:25→23:27)
[2020-06-27] MEDS: Metoprolol Tartrate 50 MG Tab PO SCH ×2 (08:25→23:33)
[2020-06-27] MEDS ORDERED: Potassium Chloride 20 MEQ Tab.ER PO ONE (08:41)
--- NOTE | 2020-06-27 08:44 | PCM.PN ---
- General Info Date of Service: 06/27/20 - Review of Systems Systems Review Comment:: patient complains of confusion today, wanting to go home soon. - Patient Data Vitals - Most Recent: Last Vital Signs Temp 37.1 C 06/27/20 04:00 Pulse 114 H 06/27/20 08:25 Resp 22 H 06/27/20 06:00 BP 153/90 H 06/27/20 08:25 Pulse Ox 94 L 06/27/20 06:00 Weight - Most Recent: 120.8 kg I&O - Last 24 Hours: Intake & Output 06/26/20 06/27/20 06/27/20 22:59 06:59 14:59 Intake Total 327 300 Output Total 700 725 Balance -373 -425 Lab Results Last 24 Hours: Laboratory Results - last 24 hr 06/26/20 06/26/20 06/27/20 Range/Units 12:07 16:50 06:55 WBC 10.43 (4.0-11.0) K/uL RBC 4.21 L (4.50-5.90) M/uL Hgb 11.7 L (13.0-17.0) g/dL Hct 37.5 L (38.0-50.0) % MCV 89.1 (80.0-98.0) fL MCH 27.8 (27.0-32.0) pg MCHC 31.2 (31.0-37.0) g/dL RDW Std Deviation 44.4 (28.0-62.0) fl RDW Coeff of Kailey 14 (11.0-15.0) % Plt Count 345 (150-400) K/uL MPV 8.90 (7.40-12.00) fL Neut % (Auto) 68.2 (48.0-80.0) % Lymph % (Auto) 17.7 (16.0-40.0) % [place] % (Auto) 12.1 (0.0-15.0) % Eos % (Auto) 1.4 (0.0-7.0) % Baso % (Auto) 0.6 (0.0-1.5) % Neut # (Auto) 7.1 H (1.4-5.7) K/uL Lymph # (Auto) 1.9 (0.6-2.4) K/uL [place] # (Auto) 1.3 H (0.0-0.8) K/uL Eos # (Auto) 0.2 (0.0-0.7) K/uL Baso # (Auto) 0.1 (0.0-0.1) K/uL Nucleated RBC % 0.0 /100WBC Nucleated RBCs # 0 K/uL Sodium (136-148) mmol/L Potassium (3.5-5.1) mmol/L Chloride (98-107) mmol/L Carbon Dioxide (21.0-32.0) mmol/L BUN (7.0-18.0) mg/dL Creatinine (0.8-1.3) mg/dL Est Cr Clr Drug Dosing Estimated GFR (MDRD) ml/min Glucose (74-106) mg/dL POC Glucose 176 H 212 H (60-110) mg/dL Calcium (8.5-10.1) mg/dL 06/27/20 06/27/20 Range/Units 06:55 08:08 WBC (4.0-11.0) K/uL RBC (4.50-5.90) M/uL Hgb (13.0-17.0) g/dL Hct (38.0-50.0) % MCV (80.0-98.0) fL MCH (27.0-32.0) pg MCHC (31.0-37.0) g/dL RDW Std Deviation (28.0-62.0) fl RDW Coeff of Kailey (11.0-15.0) % Plt Count (150-400) K/uL MPV (7.40-12.00) fL Neut % (Auto) (48.0-80.0) % Lymph % (Auto) (16.0-40.0) % [place] % (Auto) (0.0-15.0) % Eos % (Auto) (0.0-7.0) % Baso % (Auto) (0.0-1.5) % Neut # (Auto) (1.4-5.7) K/uL Lymph # (Auto) (0.6-2.4) K/uL [place] # (Auto) (0.0-0.8) K/uL Eos # (Auto) (0.0-0.7) K/uL Baso # (Auto) (0.0-0.1) K/uL Nucleated RBC % /100WBC Nucleated RBCs # K/uL Sodium 139 (136-148) mmol/L Potassium 3.4 L (3.5-5.1) mmol/L Chloride 102 (98-107) mmol/L Carbon Dioxide 28.1 (21.0-32.0) mmol/L BUN 10 (7.0-18.0) mg/dL Creatinine 0.9 (0.8-1.3) mg/dL Est Cr Clr Drug Dosing TNP Estimated GFR (MDRD) > 60.0 ml/min Glucose 179 H (74-106) mg/dL POC Glucose 170 H (60-110) mg/dL Calcium 8.6 (8.5-10.1) mg/dL Med Orders - Current: Current Medications Albuterol/Ipratropium (Duoneb 3.0-0.5 Mg/3 Ml) 3 ml NEB Q4HRRT PRN PRN Reason: Shortness Of Breath/wheezing Last Admin: 06/26/20 21:17 Dose: 3 ml Documented by: Apixaban (Eliquis) 5 mg PO BID [facility] Last Admin: 06/27/20 08:25 Dose: 5 mg Documented by: Dextrose/Water (Dextrose 50% In Water) 50 ml IVPUSH ASDIRECTED PRN PRN Reason: Hypoglycemia Diltiazem HCl (Diltiazem) 20 mg IVPUSH Q4H PRN PRN Reason: Tachycardia Last Admin: 06/27/20 05:00 Dose: 20 mg Documented by: Erythromycin (Erythromycin 0.5% Ophth Oint) 1 gm EYEBOTH BEDTIME [facility] Last Admin: 06/26/20 20:01 Dose: 1 applic Documented by: Glucagon (Glucagen) 1 mg IM ASDIRECTED PRN PRN Reason: Hypoglycemia Haloperidol Lactate (Haldol) 2 mg IM Q8H PRN PRN Reason: Agitation Last Admin: 06/26/20 01:50 Dose: 2 mg Documented by: Levetiracetam 750 mg/ Dextrose (/Water) 107.5 mls @ 440 mls/hr IV Q12H [facility] Last Admin: 06/27/20 04:01 Dose: 440 mls/hr Documented by: Insulin Aspart (Novolog) 0 unit SUBCUT TIDAC [facility]; Protocol Last Admin: 06/26/20 17:03 Dose: 2 units Documented by: Lorazepam (Ativan) 2 mg IVPUSH Q1H PRN PRN Reason: Seizures Lorazepam (Ativan) 1 mg IVPUSH Q4H PRN PRN Reason: Agitation Last Admin: 06/26/20 22:09 Dose: 2 mg Documented by: Metoprolol Tartrate (Lopressor) 50 mg PO BID [facility] Last Admin: 06/27/20 08:25 Dose: 50 mg Documented by: Ondansetron HCl (Zofran) 4 mg IVPUSH Q4H PRN PRN Reason: Nausea/Vomiting Last Admin: 06/25/20 08:34 Dose: 4 mg Documented by: Budesonide/Formoterol 160-4.5 Mcg/Puff 6 Gm Inhaler 2 each INH BIDRT [facility] Last Admin: 06/27/20 08:22 Dose: 2 each Documented by: Simvastatin (Zocor) 10 mg PO BEDTIME [facility] Last Admin: 06/26/20 20:00 Dose: 10 mg Documented by: Sodium Chloride (Saline Flush) 2.5 ml FLUSH ASDIRECTED PRN PRN Reason: Keep Vein Open Discontinued Medications Aspirin (Aspirin) 300 mg RECTAL ONETIME ONE Stop: 06/25/20 02:45 Last Admin: 06/25/20 02:49 Dose: 300 mg Documented by: Aspirin (Aspirin) Confirm Administered Dose 300 mg .ROUTE .STK-MED ONE Stop: 06/25/20 02:48 Last Admin: 06/25/20 02:53 Dose: Not Given Documented by: Dextrose/Water (Dextrose 50% In Water) 50 ml IV ASDIRECTED PRN PRN Reason: Hypoglycemia Diphenhydramine HCl (Benadryl) 25 mg IVPUSH ONETIME ONE Stop: 06/25/20 16:09 Last Admin: 06/25/20 16:20 Dose: 25 mg Documented by: Fish Oil (Fish Oil) 1 gm PO DAILY [facility] Last Admin: 06/26/20 08:38 Dose: Not Given Documented by: Haloperidol (Haldol) 5 mg PO ONETIME ONE Stop: 06/26/20 23:49 Last Admin: 06/27/20 00:05 Dose: 5 mg Documented by: Haloperidol Lactate (Haldol) 2 mg IM ONETIME ONE Stop: 06/25/20 16:09 Last Admin: 06/25/20 16:20 Dose: 2 mg Documented by: Levetiracetam 4,500 mg/ (Dextrose/Water) 145 mls @ 460 mls/hr IV ONETIME ONE Stop: 06/25/20 04:11 Last Admin: 06/25/20 04:43 Dose: 460 mls/hr Documented by: Lactated Ringer's (Ringers, Lactated) 1,000 mls @ 125 mls/hr IV ASDIRECTED [facility] Lactated Ringer's (Ringers, Lactated) 1,000 mls @ 999 mls/hr IV .BOLUS ONE Stop: 06/25/20 06:38 Last Admin: 06/25/20 05:53 Dose: 999 mls/hr Documented by: Lactated Ringer's (Ringers, Lactated) 1,000 mls @ 125 mls/hr IV ASDIRECTED [facility] Last Admin: 06/25/20 06:56 Dose: 125 mls/hr Documented by: Sodium Chloride (Normal Saline) 1,000 mls @ 999 mls/hr IV .BOLUS ONE Stop: 06/25/20 03:10 Last Admin: 06/25/20 06:04 Dose: 999 mls/hr Documented by: Lactated Ringer's (Ringers, Lactated) 1,000 mls @ 125 mls/hr IV Q8HR [facility] Last Admin: 06/25/20 22:50 Dose: Not Given Documented by: Lactated Ringer's (Ringers, Lactated) 1,000 mls @ 125 mls/hr IV ASDIRECTED [facility] Last Admin: 06/26/20 10:30 Dose: 125 mls/hr Documented by: Insulin Aspart (Novolog) 0 unit SUBCUT Q6H [facility]; Protocol Last Admin: 06/26/20 12:09 Dose: 1 units Documented by: Insulin Human Regular (Novolin R) 2 unit IVPUSH ONETIME ONE; Protocol Stop: 06/25/20 03:56 Last Admin: 06/25/20 04:32 Dose: 2 units Documented by: Iopamidol (Isovue Multipack-370 (76%)) 100 ml IVPUSH ONETIME STA Stop: 06/25/20 03:31 Last Admin: 06/25/20 03:31 Dose: 100 ml Documented by: Lorazepam (Ativan) Confirm Administered Dose 4 mg .ROUTE .STK-MED ONE Stop: 06/25/20 02:18 Last Admin: 06/25/20 02:28 Dose: Not Given Documented by: Lorazepam (Ativan) 2 mg IVPUSH ONETIME ONE Stop: 06/25/20 02:24 Last Admin: 06/25/20 02:49 Dose: 2 mg Documented by: Lorazepam (Ativan) 2 mg IVPUSH ONETIME PRN PRN Reason: Seizures Lorazepam (Ativan) 2 mg IVPUSH ONETIME PRN PRN Reason: Seizures Lorazepam (Ativan) 1 mg IVPUSH ONETIME ONE Stop: 06/25/20 13:14 Last Admin: 06/25/20 13:22 Dose: 1 mg Documented by: Lorazepam (Ativan) 1 mg IVPUSH ONETIME ONE Stop: 06/25/20 13:26 Last Admin: 06/25/20 13:30 Dose: 1 mg Documented by: Lorazepam (Ativan) 2 mg IVPUSH ONETIME ONE Stop: 06/25/20 16:09 Last Admin: 06/25/20 16:20 Dose: 2 mg Documented by: Patient Own Medication (Ptom) 0 each INH BIDRT JAMES Last Admin: 06/26/20 06:06 Dose: Not Given Documented by: Sodium Chloride (Saline Flush) 10 ml FLUSH ASDIRECTED PRN PRN Reason: Keep Vein Open Sodium Chloride (Saline Flush) 2.5 ml FLUSH ASDIRECTED PRN PRN Reason: Keep Vein Open - Exam General: Alert, Cooperative. No: Oriented (not orientated to place or time) Lungs: Clear to Auscultation, Normal Respiratory Effort Cardiovascular: Regular Rate, Regular Rhythm GI/Abdominal Exam: Normal Bowel Sounds, Soft, Non-Tender Skin: Warm, Dry, Intact Neurological: No New Focal Deficit Sepsis Event Note - Evaluation Sepsis Screening Result: No Definite Risk - Focused Exam Vital Signs: Vital Signs Temp Pulse Resp BP BP BP Pulse Ox 06/27/20 08:25 114 H 153/90 H 06/27/20 06:00 22 H 94 L 06/27/20 05:00 20 93 L 06/27/20 04:19 93 L 06/27/20 04:00 37.1 C 26 H 160/109 H 93 L 06/27/20 03:00 20 93 L 06/27/20 02:00 16 138/103 H 97 06/27/20 01:00 18 144/108 H 97 06/27/20 00:00 36.8 C 14 163/102 H 96 06/26/20 23:00 27 H 179/122 H 95 06/26/20 22:25 28 H 132/93 H 132/93 H 90 L 06/26/20 21:00 24 H 94 L - Problem List Review Problem List Initiated/Reviewed/Updated: Yes - My Orders Last 24 Hours: My Active Orders 06/26/20 11:26 Consult to Physical Therapy [PT Evaluation and Treatment] [CONS] Routine 06/26/20 21:00 Apixaban [Eliquis] 5 mg PO BID 06/27/20 08:41 Potassium Chloride [Klor-Con M20] 40 meq PO ONETIME ONE 06/28/20 05:11 BASIC METABOLIC PANEL,BMP [CHEM] AM CBC WITH AUTO DIFF [HEME] AM MAGNESIUM [CHEM] AM - Plan Plan:: 79 y/o M admitted, for Seizures, possible stroke mentation improving this morning CT scan head, CTA head/neck, MRI negative for acute stroke Seizure disorder: continue Keppra Possible stroke: continue eliquis, statin Delerium: sundowning at night, spoke with today and patient has symptoms of slow cognitive decline at home. Advance diet PT and speech consulted SSI, q6h Accu checks
[2020-06-27] MEDS: Insulin Aspart 100 Units/ML 3 ML Pen SUBCUT SCH ×3 (08:57→17:23)
[2020-06-27] MEDS: Albuterol/Ipratropium 3.0-0.5 MG/3 ML Neb Soln NEB PRN (13:27)
[2020-06-27] MEDS ORDERED: Docusate Sodium 100 MG Cap PO PRN (16:11)
[2020-06-27] MEDS: Erythromycin Base 0.5% Ophth Oint 1 GM Tube EYEBOTH SCH (23:26)
[2020-06-27] MEDS: Simvastatin 10 MG Tab PO SCH (23:31)
[2020-06-28] MEDS: Albuterol/Ipratropium 3.0-0.5 MG/3 ML Neb Soln NEB PRN (03:41)
[2020-06-28] MEDS: Budesonide/Formoterol 160-4.5 MCG/Puff 6 GM Inhaler INH SCH ×2 (05:47→21:06)
[2020-06-28 06:45] LABS: BLOOD UREA NITROGEN,BUN 12 mg/dL (7.0-18.0); CARBON DIOXIDE,CO2 26.7 mmol/L (21.0-32.0); CHLORIDE,CL 103 mmol/L (98-107); GLUCOSE RANDOM 190 mg/dL (74-106); POTASSIUM,K 3.7 mmol/L (3.5-5.1); SODIUM,NA 140 mmol/L (136-148)
[2020-06-28] MEDS: Insulin Aspart 100 Units/ML 3 ML Pen SUBCUT SCH ×3 (07:57→17:40)
[2020-06-28] MEDS: Apixaban 5 MG Tab PO SCH ×2 (08:00→21:05)
[2020-06-28] MEDS: Metoprolol Tartrate 50 MG Tab PO SCH ×2 (08:01→21:04)
[2020-06-28] MEDS: amLODIPine 5 MG Tab PO SCH (09:18)
--- NOTE | 2020-06-28 12:03 | PCM.DCSUM1 ---
Discharge Summary - Hospital Course Brief History: Patient is a 79-year-old man with a past medical history of diabetes mellitus, atrial fibrillation on Eliquis, hyperlipidemia, prior CVA in January without deficits, presenting with stroke symptoms via Ambulance. Reportedly last known well was about 9:00 PM this evening, and around 1 AM this morning, patient's went to go check on him and noted that he was having difficulty using his limbs and his speech was off. 911 was called, when EMS arrived, they noted left-sided facial droop along with left upper extremity hemiparesis concerning for stroke. On route, patient suffered an episode of generalized seizure activity in the ambulance with no post ictal period, by the time he arrived to ER he was confused, not oriented to time, place, or event. Patient was noted to have left-sided facial droop and left upper extremity hemiparesis.The patient then had a 2nd episode of generalized seizure episode that lasted about 60 seconds, he received 2 mg of IV lorazepam to abort the seizure. Patient was then taken to the CT scanner for noncontrast head CT and angiogram studies of the head and neck. Noncontrast head CT shows no acute findings, did note evolution of a previous small posterior distal right MCA infarction. Head and neck CTAs show no acute findings. twelve-lead EKG showing atrial fibrillation but no acute ischemia, also obtained a chest x-ray and placed a Castañeda catheter. Labs show mild leukocytosis and thrombocytosis. INR is normal. Lactate was elevated at 2.7. Venous blood gas shows a respiratory acidosis with pH of 7.29 and PCO2 of 60. Metabolic panel shows mildly low carbon dioxide of 17, renal insufficiency with creatinine of 1.5, glucose 231, negative troponin, negative TSH. Urinalysis bland, negative ethyl alcohol, negative COVID-19 swab. Chest x-ray is negative. Patient was not a candidate for TPA as he was outside the window, and is also on anticoagulation. Patient became increasingly somnolent upon receiving Ativan, was started on oxygen for respiratory support but was protecting his air way. Patient received IV loading dose of Keppra in ER. Patient was admitted for further management to ICU. - Discharge Data Discharge Date: 06/28/20 Discharge Disposition: Home, W Home Health Agency 06 Condition: Good - Referral to Home Health Date of Face to Face Encounter: 06/28/20 Reason for Homebound Status: Kaveh is homebound in need of assistance walker as well as caregiver to the house due to unsteady gait. He is unable to drive to appointments. Primary Care Physician: Arcenio Fink MD Skilled Need: Kaveh is in need of care home at home to monitor medications, was recently started on new medication for seizures. He is also in need of vital signs monitoring. He would benefit from physical therapy to evaluate and treat along with home safety evaluation from occupational therapy secondary to recent left-sided weakness associated with seizures and unsteady gait. - Patient Summary/Data Consults: Consultations 06/25/20 08:43 Consult to Physician [CONS] Routine 06/26/20 11:26 Consult to Physical Therapy [PT Evaluation and Treatment] [CONS] Routine 06/26/20 12:35 Consult to Speech Language Pathology [ETL ARCHITECT Evaluation and Treatment] [CONS] Routine Hospital Course: Admission diagnoses Seizure activity CVA suspected Left-sided weakness Delirium Discharge diagnoses Seizure Other PMH: History CVA Hypertension Atrial fibrillation Chronic anticoagulation Mild cognitive decline Kaveh was admitted secondary to left-sided weakness and seizure activity. He was evaluated with CT of head as well as CTA head and neck and MRI of brain. He was evaluated by Dr. Jacobsen, neurology. It appears no recent or new stroke but continue to show old stroke. He was loaded on Keppra and then continued on Keppra 750 mg twice daily for seizure activity. Left-sided weakness improved. He is up ambulating with one assist and doing well. During his stay he was noted to have some intermittent delirium and confusion. confirms that he has had some mild cognitive decline at home as well. Today he is doing improved he will have his Castañeda removed and monitored so he is able to urinate per self. He is requesting discharge home as he is feeling much improved and does not want to be in the hospital any longer. I did speak with his , Chayo, who feels comfortable taking him home. I did recommend home health for nursing to monitor his new medications as well as vital signs. He will also benefit from PT OT to evaluate his needs at home with ADLs as well as his unsteady gait and a home safety evaluation. He will be discharged home to restart all current medications. He will be discharged on Keppra 750 mg twice daily for seizures. He is not to drive and will have follow-up with PCP as well as Dr. Jacobsen as outpatient. He is to return to the ER or clinic sooner if concerns should arise. - Patient Instructions Diet: Heart Healthy Diet, Diabetic Diet Activity: As Tolerated, Rest and Relax Today Driving: Do Not Drive (due to seizures. ) Showering/Bathing: May Shower Notify Provider of: Fever, Increased Pain, Swelling and Redness, Drainage, Nausea and/or Vomiting - Discharge Plan *PRESCRIPTION DRUG MONITORING PROGRAM REVIEWED*: Not Applicable *COPY OF PRESCRIPTION DRUG MONITORING REPORT IN PATIENT FLOR: Not Applicable Prescriptions/Med Rec: levETIRAcetam [Levetiracetam] 750 mg PO BID #28 tablet levETIRAcetam [Levetiracetam] 750 mg PO BID #60 tablet Tobacco Cessation Medication: Prescription Given Home Medications: Home Meds Fish Oil/DHA/EPA [Fish Oil 1,200 MG] 1 cap PO QAM 05/22/18 [History] Insuln Asp Prot/Insulin Aspart [NovoLOG Mix 70-30] 27 unit SQ ACDINNER 05/22/18 [History] Liraglutide [Victoza] 1.2 mg SQ QAM 05/22/18 [History] Losartan [Cozaar] 100 mg PO QAM 05/22/18 [History] Metoprolol Tartrate 50 mg PO BID 05/22/18 [History] Simvastatin 10 mg PO QPM 05/22/18 [History] amLODIPine Besylate [Amlodipine Besylate] 10 mg PO QAM 05/22/18 [History] Insuln Asp Prot/Insulin Aspart [NovoLOG Mix 70-30] 33 units SQ ACBREAKFAST 05/24/18 [History] Multivitamin [Multivitamins] 1 each PO QAM 08/23/18 [History] metFORMIN [Glucophage] 500 mg PO TIDMEALS 08/23/18 [History] Budesonide/Formoterol Fumarate [Budesonide-Formoterol 160-4.5] 2 inh IH BID 03/28 [History] Erythromycin Base [Erythromycin 0.5% Ophth Oint] 1 applic EYEBOTH BEDTIME 01/16/20 [History] Apixaban [Eliquis] 5 mg PO BID #30 tablet 01/17/20 [Rx] Pregabalin 25 mg PO BID 06/25/20 [History] levETIRAcetam [Levetiracetam] 750 mg PO BID #28 tablet 06/28/20 [Rx] levETIRAcetam [Levetiracetam] 750 mg PO BID #60 tablet 06/28/20 [Rx] Oxygen Therapy Mode: Room Air Patient Handouts: Hepatic Encephalopathy Referrals: Arcenio Fink MD [Primary Care Provider] - 07/08/20 10:15 am (Please arrive 15 min early wearing a facemask and please bring insurance cards and a photo ID.) Linnea Jacobsen MD [Physician] - 06/28/20 11:44 am (Hey please arrive 15 minutes early wearing a facemask, with insurance cards and a photo ID.) - Discharge Summary/Plan Comment DC Time >30 min.: No - Patient Data Vitals - Most Recent: Last Vital Signs Temp 96.7 F L 06/28/20 11:41 Pulse 89 06/28/20 11:41 Resp 16 06/28/20 11:41 BP 128/90 06/28/20 11:41 Pulse Ox 96 06/28/20 11:41 Weight - Most Recent: 121.971 kg I&O - Last 24 hours: Intake & Output 06/27/20 06/28/20 06/28/20 22:59 06:59 14:59 Intake Total 457 600 Output Total 450 1350 Balance 7 -750 Lab Results - Last 24 hrs: Laboratory Results - last 24 hr 06/27/20 06/28/20 06/28/20 Range/Units 17:16 05:14 05:14 WBC 9.00 (4.0-11.0) K/uL RBC 4.40 L (4.50-5.90) M/uL Hgb 12.2 L (13.0-17.0) g/dL Hct 39.1 (38.0-50.0) % MCV 88.9 (80.0-98.0) fL MCH 27.7 (27.0-32.0) pg MCHC 31.2 (31.0-37.0) g/dL RDW Std Deviation 44.9 (28.0-62.0) fl RDW Coeff of Kailey 14 (11.0-15.0) % Plt Count 380 (150-400) K/uL MPV 9.70 (7.40-12.00) fL Neut % (Auto) 64.0 (48.0-80.0) % Lymph % (Auto) 20.2 (16.0-40.0) % Karnes % (Auto) 12.0 (0.0-15.0) % Eos % (Auto) 3.4 (0.0-7.0) % Baso % (Auto) 0.4 (0.0-1.5) % Neut # (Auto) 5.8 H (1.4-5.7) K/uL Lymph # (Auto) 1.8 (0.6-2.4) K/uL Karnes # (Auto) 1.1 H (0.0-0.8) K/uL Eos # (Auto) 0.3 (0.0-0.7) K/uL Baso # (Auto) 0.0 (0.0-0.1) K/uL Nucleated RBC % 0.0 /100WBC Nucleated RBCs # 0 K/uL Sodium 140 (136-148) mmol/L Potassium 3.7 (3.5-5.1) mmol/L Chloride 103 (98-107) mmol/L Carbon Dioxide 26.7 (21.0-32.0) mmol/L BUN 12 (7.0-18.0) mg/dL Creatinine 0.9 (0.8-1.3) mg/dL Est Cr Clr Drug Dosing TNP Estimated GFR (MDRD) > 60.0 ml/min Glucose 190 H (74-106) mg/dL POC Glucose 207 H (60-110) mg/dL Calcium 8.4 L (8.5-10.1) mg/dL Magnesium 1.7 L (1.8-2.4) mg/dL 06/28/20 06/28/20 Range/Units 06:21 11:41 WBC (4.0-11.0) K/uL RBC (4.50-5.90) M/uL Hgb (13.0-17.0) g/dL Hct (38.0-50.0) % MCV (80.0-98.0) fL MCH (27.0-32.0) pg MCHC (31.0-37.0) g/dL RDW Std Deviation (28.0-62.0) fl RDW Coeff of Kailey (11.0-15.0) % Plt Count (150-400) K/uL MPV (7.40-12.00) fL Neut % (Auto) (48.0-80.0) % Lymph % (Auto) (16.0-40.0) % Karnes % (Auto) (0.0-15.0) % Eos % (Auto) (0.0-7.0) % Baso % (Auto) (0.0-1.5) % Neut # (Auto) (1.4-5.7) K/uL Lymph # (Auto) (0.6-2.4) K/uL Karnes # (Auto) (0.0-0.8) K/uL Eos # (Auto) (0.0-0.7) K/uL Baso # (Auto) (0.0-0.1) K/uL Nucleated RBC % /100WBC Nucleated RBCs # K/uL Sodium (136-148) mmol/L Potassium (3.5-5.1) mmol/L Chloride (98-107) mmol/L Carbon Dioxide (21.0-32.0) mmol/L BUN (7.0-18.0) mg/dL Creatinine (0.8-1.3) mg/dL Est Cr Clr Drug Dosing Estimated GFR (MDRD) ml/min Glucose (74-106) mg/dL POC Glucose 189 H 248 H (60-110) mg/dL Calcium (8.5-10.1) mg/dL Magnesium (1.8-2.4) mg/dL Med Orders - Current: Current Medications Albuterol/Ipratropium (Duoneb 3.0-0.5 Mg/3 Ml) 3 ml NEB Q4HRRT PRN PRN Reason: Shortness Of Breath/wheezing Last Admin: 06/28/20 03:41 Dose: 3 ml Documented by: Amlodipine Besylate (Norvasc) 10 mg PO DAILY [facility] Last Admin: 06/28/20 09:18 Dose: 10 mg Documented by: Apixaban (Eliquis) 5 mg PO BID [facility] Last Admin: 06/28/20 08:00 Dose: 5 mg Documented by: Dextrose/Water (Dextrose 50% In Water) 50 ml IVPUSH ASDIRECTED PRN PRN Reason: Hypoglycemia Diltiazem HCl (Diltiazem) 20 mg IVPUSH Q4H PRN PRN Reason: Tachycardia Last Admin: 06/27/20 05:00 Dose: 20 mg Documented by: Docusate Sodium (Colace) 100 mg PO DAILY PRN PRN Reason: Constipation Last Admin: 06/27/20 17:23 Dose: 100 mg Documented by: Erythromycin (Erythromycin 0.5% Ophth Oint) 1 gm EYEBOTH BEDTIME [facility] Last Admin: 06/27/20 23:26 Dose: 1 applic Documented by: Glucagon (Glucagen) 1 mg IM ASDIRECTED PRN PRN Reason: Hypoglycemia Haloperidol Lactate (Haldol) 2 mg IM Q8H PRN PRN Reason: Agitation Last Admin: 06/26/20 01:50 Dose: 2 mg Documented by: Levetiracetam 750 mg/ Dextrose (/Water) 107.5 mls @ 440 mls/hr IV Q12H [facility] Last Admin: 06/28/20 03:19 Dose: 440 mls/hr Documented by: Insulin Aspart (Novolog) 0 unit SUBCUT TIDAC [facility]; Protocol Last Admin: 06/28/20 07:57 Dose: 1 units Documented by: Lorazepam (Ativan) 2 mg IVPUSH Q1H PRN PRN Reason: Seizures Lorazepam (Ativan) 1 mg IVPUSH Q4H PRN PRN Reason: Agitation Last Admin: 06/26/20 22:09 Dose: 2 mg Documented by: Metoprolol Tartrate (Lopressor) 50 mg PO BID [facility] Last Admin: 06/28/20 08:01 Dose: 50 mg Documented by: Ondansetron HCl (Zofran) 4 mg IVPUSH Q4H PRN PRN Reason: Nausea/Vomiting Last Admin: 06/25/20 08:34 Dose: 4 mg Documented by: Budesonide/Formoterol 160-4.5 Mcg/Puff 6 Gm Inhaler 2 each INH BIDRT [facility] Last Admin: 06/28/20 05:47 Dose: 2 each Documented by: Simvastatin (Zocor) 10 mg PO BEDTIME [facility] Last Admin: 06/27/20 23:31 Dose: 10 mg Documented by: Sodium Chloride (Saline Flush) 2.5 ml FLUSH ASDIRECTED PRN PRN Reason: Keep Vein Open Discontinued Medications Aspirin (Aspirin) 300 mg RECTAL ONETIME ONE Stop: 06/25/20 02:45 Last Admin: 06/25/20 02:49 Dose: 300 mg Documented by: Aspirin (Aspirin) Confirm Administered Dose 300 mg .ROUTE .STK-MED ONE Stop: 06/25/20 02:48 Last Admin: 06/25/20 02:53 Dose: Not Given Documented by: Dextrose/Water (Dextrose 50% In Water) 50 ml IV ASDIRECTED PRN PRN Reason: Hypoglycemia Diphenhydramine HCl (Benadryl) 25 mg IVPUSH ONETIME ONE Stop: 06/25/20 16:09 Last Admin: 06/25/20 16:20 Dose: 25 mg Documented by: Fish Oil (Fish Oil) 1 gm PO DAILY [facility] Last Admin: 06/26/20 08:38 Dose: Not Given Documented by: Haloperidol (Haldol) 5 mg PO ONETIME ONE Stop: 06/26/20 23:49 Last Admin: 06/27/20 00:05 Dose: 5 mg Documented by: Haloperidol Lactate (Haldol) 2 mg IM ONETIME ONE Stop: 06/25/20 16:09 Last Admin: 06/25/20 16:20 Dose: 2 mg Documented by: Levetiracetam 4,500 mg/ (Dextrose/Water) 145 mls @ 460 mls/hr IV ONETIME ONE Stop: 06/25/20 04:11 Last Admin: 06/25/20 04:43 Dose: 460 mls/hr Documented by: Lactated Ringer's (Ringers, Lactated) 1,000 mls @ 125 mls/hr IV ASDIRECTED [facility] Lactated Ringer's (Ringers, Lactated) 1,000 mls @ 999 mls/hr IV .BOLUS ONE Stop: 06/25/20 06:38 Last Admin: 06/25/20 05:53 Dose: 999 mls/hr Documented by: Lactated Ringer's (Ringers, Lactated) 1,000 mls @ 125 mls/hr IV ASDIRECTED [facility] Last Admin: 06/25/20 06:56 Dose: 125 mls/hr Documented by: Sodium Chloride (Normal Saline) 1,000 mls @ 999 mls/hr IV .BOLUS ONE Stop: 06/25/20 03:10 Last Admin: 06/25/20 06:04 Dose: 999 mls/hr Documented by: Lactated Ringer's (Ringers, Lactated) 1,000 mls @ 125 mls/hr IV Q8HR [facility] Last Admin: 06/25/20 22:50 Dose: Not Given Documented by: Lactated Ringer's (Ringers, Lactated) 1,000 mls @ 125 mls/hr IV ASDIRECTED JAMES Last Admin: 06/26/20 10:30 Dose: 125 mls/hr Documented by: Insulin Aspart (Novolog) 0 unit SUBCUT Q6H [facility]; Protocol Last Admin: 06/26/20 12:09 Dose: 1 units Documented by: Insulin Human Regular (Novolin R) 2 unit IVPUSH ONETIME ONE; Protocol Stop: 06/25/20 03:56 Last Admin: 06/25/20 04:32 Dose: 2 units Documented by: Iopamidol (Isovue Multipack-370 (76%)) 100 ml IVPUSH ONETIME STA Stop: 06/25/20 03:31 Last Admin: 06/25/20 03:31 Dose: 100 ml Documented by: Lorazepam (Ativan) Confirm Administered Dose 4 mg .ROUTE .STK-MED ONE Stop: 06/25/20 02:18 Last Admin: 06/25/20 02:28 Dose: Not Given Documented by: Lorazepam (Ativan) 2 mg IVPUSH ONETIME ONE Stop: 06/25/20 02:24 Last Admin: 06/25/20 02:49 Dose: 2 mg Documented by: Lorazepam (Ativan) 2 mg IVPUSH ONETIME PRN PRN Reason: Seizures Lorazepam (Ativan) 2 mg IVPUSH ONETIME PRN PRN Reason: Seizures Lorazepam (Ativan) 1 mg IVPUSH ONETIME ONE Stop: 06/25/20 13:14 Last Admin: 06/25/20 13:22 Dose: 1 mg Documented by: Lorazepam (Ativan) 1 mg IVPUSH ONETIME ONE Stop: 06/25/20 13:26 Last Admin: 06/25/20 13:30 Dose: 1 mg Documented by: Lorazepam (Ativan) 2 mg IVPUSH ONETIME ONE Stop: 06/25/20 16:09 Last Admin: 06/25/20 16:20 Dose: 2 mg Documented by: Patient Own Medication (Ptom) 0 each INH BIDRT [facility] Last Admin: 06/26/20 06:06 Dose: Not Given Documented by: Potassium Chloride (Klor-Con M20) 40 meq PO ONETIME ONE Stop: 06/27/20 08:42 Last Admin: 06/27/20 09:03 Dose: 40 meq Documented by: Sodium Chloride (Saline Flush) 10 ml FLUSH ASDIRECTED PRN PRN Reason: Keep Vein Open Sodium Chloride (Saline Flush) 2.5 ml FLUSH ASDIRECTED PRN PRN Reason: Keep Vein Open - Exam Quality Assessment: Denies: Supplemental Oxygen General: Reports: Alert, Oriented, Cooperative, No Acute Distress, Other (Intermittent confusion but otherwise majority of time he is alert and oriented. Requesting discharge home) Neck: Reports: Supple Lungs: Reports: Clear to Auscultation, Normal Respiratory Effort Cardiovascular: Reports: Regular Rate, Regular Rhythm GI/Abdominal Exam: Normal Bowel Sounds, Soft, Non-Tender Back Exam: Reports: Normal Inspection, Full Range of Motion Skin: Reports: Other (Small abrasion to left knee no signs of infection.) Wound/Incisions: Denies: Erythema Neurological: Reports: No New Focal Deficit Psy/Mental Status: Reports: Alert, Normal Affect, Normal Mood
[2020-06-28] MEDS ORDERED: levETIRAcetam Soln 500 MG/5 ML Cup PO ONE (15:25)
[2020-06-28] MEDS: Simvastatin 10 MG Tab PO SCH (21:05)
[2020-06-28] MEDS: Erythromycin Base 0.5% Ophth Oint 1 GM Tube EYEBOTH SCH (21:05)
[2020-06-29] MEDS: Budesonide/Formoterol 160-4.5 MCG/Puff 6 GM Inhaler INH SCH (06:00)
[2020-06-29] MEDS: Albuterol/Ipratropium 3.0-0.5 MG/3 ML Neb Soln NEB PRN (06:01)
--- NOTE | 2020-06-29 08:10 | PCM.PN ---
- General Info Date of Service: 06/28/20 Admission Dx/Problem (Free Text): seizure Subjective Update: Kaveh was initially supposed to be discharged 06/28/2020 but he was unable to void with Castañeda catheter. He was kept 1 more evening to monitor urination. He was doing well this morning very eager to go home. Denies any chest pain shortness of breath or generalized malaise. Has intermittent confusion which explains that this is normal at home. Functional Status: Reports: Pain Controlled, Tolerating Diet, Ambulating, Urinating - Review of Systems General: Reports: No Symptoms. Denies: Weakness, Fatigue Pulmonary: Reports: No Symptoms. Denies: Shortness of Breath Cardiovascular: Reports: No Symptoms. Denies: Chest Pain Gastrointestinal: Reports: No Symptoms. Denies: Abdominal Pain, Nausea, Vomiting Genitourinary: Reports: No Symptoms Musculoskeletal: Reports: No Symptoms Skin: Reports: No Symptoms Neurological: Reports: No Symptoms Psychiatric: Reports: No Symptoms - Patient Data Vitals - Most Recent: Last Vital Signs Temp 97.4 F 06/29/20 07:53 Pulse 113 H 06/29/20 07:53 Resp 20 06/29/20 07:53 BP 131/81 06/29/20 07:53 Pulse Ox 94 L 06/29/20 07:53 Weight - Most Recent: 123.196 kg I&O - Last 24 Hours: Intake & Output 06/28/20 06/29/20 06/29/20 22:59 06:59 14:59 Intake Total 1728 200 Balance 1728 200 Lab Results Last 24 Hours: Laboratory Results - last 24 hr 06/28/20 06/28/20 06/29/20 Range/Units 11:41 16:37 06:01 POC Glucose 248 H 261 H 203 H (60-110) mg/dL Med Orders - Current: Current Medications Albuterol/Ipratropium (Duoneb 3.0-0.5 Mg/3 Ml) 3 ml NEB Q4HRRT PRN PRN Reason: Shortness Of Breath/wheezing Last Admin: 06/29/20 06:01 Dose: 3 ml Documented by: Amlodipine Besylate (Norvasc) 10 mg PO DAILY [facility] Last Admin: 06/28/20 09:18 Dose: 10 mg Documented by: Apixaban (Eliquis) 5 mg PO BID [facility] Last Admin: 06/28/20 21:05 Dose: Not Given Documented by: Dextrose/Water (Dextrose 50% In Water) 50 ml IVPUSH ASDIRECTED PRN PRN Reason: Hypoglycemia Diltiazem HCl (Diltiazem) 20 mg IVPUSH Q4H PRN PRN Reason: Tachycardia Last Admin: 06/27/20 05:00 Dose: 20 mg Documented by: Docusate Sodium (Colace) 100 mg PO DAILY PRN PRN Reason: Constipation Last Admin: 06/27/20 17:23 Dose: 100 mg Documented by: Erythromycin (Erythromycin 0.5% Ophth Oint) 1 gm EYEBOTH BEDTIME [facility] Last Admin: 06/28/20 21:05 Dose: 1 applic Documented by: Glucagon (Glucagen) 1 mg IM ASDIRECTED PRN PRN Reason: Hypoglycemia Haloperidol Lactate (Haldol) 2 mg IM Q8H PRN PRN Reason: Agitation Last Admin: 06/26/20 01:50 Dose: 2 mg Documented by: Insulin Aspart (Novolog) 0 unit SUBCUT TIDAC [facility]; Protocol Last Admin: 06/28/20 17:40 Dose: 3 units Documented by: Lorazepam (Ativan) 2 mg IVPUSH Q1H PRN PRN Reason: Seizures Lorazepam (Ativan) 1 mg IVPUSH Q4H PRN PRN Reason: Agitation Last Admin: 06/26/20 22:09 Dose: 2 mg Documented by: Metoprolol Tartrate (Lopressor) 50 mg PO BID [facility] Last Admin: 06/28/20 21:04 Dose: 50 mg Documented by: Ondansetron HCl (Zofran) 4 mg IVPUSH Q4H PRN PRN Reason: Nausea/Vomiting Last Admin: 06/25/20 08:34 Dose: 4 mg Documented by: Budesonide/Formoterol 160-4.5 Mcg/Puff 6 Gm Inhaler 2 each INH BIDRT [facility] Last Admin: 06/29/20 06:00 Dose: 2 each Documented by: Simvastatin (Zocor) 10 mg PO BEDTIME [facility] Last Admin: 06/28/20 21:05 Dose: 10 mg Documented by: Sodium Chloride (Saline Flush) 2.5 ml FLUSH ASDIRECTED PRN PRN Reason: Keep Vein Open Discontinued Medications Aspirin (Aspirin) 300 mg RECTAL ONETIME ONE Stop: 06/25/20 02:45 Last Admin: 06/25/20 02:49 Dose: 300 mg Documented by: Aspirin (Aspirin) Confirm Administered Dose 300 mg .ROUTE .STK-MED ONE Stop: 06/25/20 02:48 Last Admin: 06/25/20 02:53 Dose: Not Given Documented by: Dextrose/Water (Dextrose 50% In Water) 50 ml IV ASDIRECTED PRN PRN Reason: Hypoglycemia Diphenhydramine HCl (Benadryl) 25 mg IVPUSH ONETIME ONE Stop: 06/25/20 16:09 Last Admin: 06/25/20 16:20 Dose: 25 mg Documented by: Fish Oil (Fish Oil) 1 gm PO DAILY [facility] Last Admin: 06/26/20 08:38 Dose: Not Given Documented by: Haloperidol (Haldol) 5 mg PO ONETIME ONE Stop: 06/26/20 23:49 Last Admin: 06/27/20 00:05 Dose: 5 mg Documented by: Haloperidol Lactate (Haldol) 2 mg IM ONETIME ONE Stop: 06/25/20 16:09 Last Admin: 06/25/20 16:20 Dose: 2 mg Documented by: Levetiracetam 4,500 mg/ (Dextrose/Water) 145 mls @ 460 mls/hr IV ONETIME ONE Stop: 06/25/20 04:11 Last Admin: 06/25/20 04:43 Dose: 460 mls/hr Documented by: Lactated Ringer's (Ringers, Lactated) 1,000 mls @ 125 mls/hr IV ASDIRECTED [facility] Lactated Ringer's (Ringers, Lactated) 1,000 mls @ 999 mls/hr IV .BOLUS ONE Stop: 06/25/20 06:38 Last Admin: 06/25/20 05:53 Dose: 999 mls/hr Documented by: Lactated Ringer's (Ringers, Lactated) 1,000 mls @ 125 mls/hr IV ASDIRECTED [facility] Last Admin: 06/25/20 06:56 Dose: 125 mls/hr Documented by: Sodium Chloride (Normal Saline) 1,000 mls @ 999 mls/hr IV .BOLUS ONE Stop: 06/25/20 03:10 Last Admin: 06/25/20 06:04 Dose: 999 mls/hr Documented by: Lactated Ringer's (Ringers, Lactated) 1,000 mls @ 125 mls/hr IV Q8HR [facility] Last Admin: 06/25/20 22:50 Dose: Not Given Documented by: Levetiracetam 750 mg/ Dextrose (/Water) 107.5 mls @ 440 mls/hr IV Q12H [facility] Last Admin: 06/28/20 03:19 Dose: 440 mls/hr Documented by: Lactated Ringer's (Ringers, Lactated) 1,000 mls @ 125 mls/hr IV ASDIRECTED [facility] Last Admin: 06/26/20 10:30 Dose: 125 mls/hr Documented by: Insulin Aspart (Novolog) 0 unit SUBCUT Q6H [facility]; Protocol Last Admin: 06/26/20 12:09 Dose: 1 units Documented by: Insulin Human Regular (Novolin R) 2 unit IVPUSH ONETIME ONE; Protocol Stop: 06/25/20 03:56 Last Admin: 06/25/20 04:32 Dose: 2 units Documented by: Iopamidol (Isovue Multipack-370 (76%)) 100 ml IVPUSH ONETIME STA Stop: 06/25/20 03:31 Last Admin: 06/25/20 03:31 Dose: 100 ml Documented by: Levetiracetam (Keppra) 750 mg PO NOW ONE Stop: 06/28/20 15:26 Last Admin: 06/28/20 15:44 Dose: 750 mg Documented by: Lorazepam (Ativan) Confirm Administered Dose 4 mg .ROUTE .STK-MED ONE Stop: 06/25/20 02:18 Last Admin: 06/25/20 02:28 Dose: Not Given Documented by: Lorazepam (Ativan) 2 mg IVPUSH ONETIME ONE Stop: 06/25/20 02:24 Last Admin: 06/25/20 02:49 Dose: 2 mg Documented by: Lorazepam (Ativan) 2 mg IVPUSH ONETIME PRN PRN Reason: Seizures Lorazepam (Ativan) 2 mg IVPUSH ONETIME PRN PRN Reason: Seizures Lorazepam (Ativan) 1 mg IVPUSH ONETIME ONE Stop: 06/25/20 13:14 Last Admin: 06/25/20 13:22 Dose: 1 mg Documented by: Lorazepam (Ativan) 1 mg IVPUSH ONETIME ONE Stop: 06/25/20 13:26 Last Admin: 06/25/20 13:30 Dose: 1 mg Documented by: Lorazepam (Ativan) 2 mg IVPUSH ONETIME ONE Stop: 06/25/20 16:09 Last Admin: 06/25/20 16:20 Dose: 2 mg Documented by: Patient Own Medication (Ptom) 0 each INH BIDRT JAMES Last Admin: 06/26/20 06:06 Dose: Not Given Documented by: Potassium Chloride (Klor-Con M20) 40 meq PO ONETIME ONE Stop: 06/27/20 08:42 Last Admin: 06/27/20 09:03 Dose: 40 meq Documented by: Sodium Chloride (Saline Flush) 10 ml FLUSH ASDIRECTED PRN PRN Reason: Keep Vein Open Sodium Chloride (Saline Flush) 2.5 ml FLUSH ASDIRECTED PRN PRN Reason: Keep Vein Open - Exam Quality Assessment: DVT Prophylaxis. No: Supplemental Oxygen General: Alert, Oriented (Intermittent confusion which is at baseline), Cooperative Lungs: Clear to Auscultation, Normal Respiratory Effort Cardiovascular: Regular Rate, Regular Rhythm GI/Abdominal Exam: Normal Bowel Sounds, Soft, Non-Tender Back Exam: Normal Inspection, Full Range of Motion Extremities: Normal Inspection, Normal Range of Motion, Non-Tender, No Pedal Edema Wound/Incisions: Healing Well Neurological: No New Focal Deficit Psy/Mental Status: Alert, Normal Affect, Normal Mood Sepsis Event Note - Evaluation Sepsis Screening Result: No Definite Risk - Focused Exam Vital Signs: Vital Signs Temp Pulse Pulse Resp BP BP Pulse Ox 06/29/20 07:53 97.4 F 113 H 20 131/81 94 L 06/29/20 04:13 97.8 F 100 22 H 168/103 H 95 06/29/20 00:24 97 F 83 20 138/91 H 95 06/28/20 21:04 104 H 124/80 - Problem List & Annotations (1) Acute encephalopathy SNOMED Code(s): 32623356, 544246439 Code(s): G93.40 - ENCEPHALOPATHY, UNSPECIFIED Status: Acute (2) Afib SNOMED Code(s): 43599575 Code(s): I48.91 - UNSPECIFIED ATRIAL FIBRILLATION Status: Acute (3) CVA (cerebral vascular accident) SNOMED Code(s): 732983794 Code(s): I63.9 - CEREBRAL INFARCTION, UNSPECIFIED Status: Acute (4) Generalized muscle weakness SNOMED Code(s): 63996265, 18120100 Code(s): M62.81 - MUSCLE WEAKNESS (GENERALIZED) Status: Acute (5) Generalized seizure SNOMED Code(s): 115707768 Code(s): R56.9 - UNSPECIFIED CONVULSIONS Status: Acute - Problem List Review Problem List Initiated/Reviewed/Updated: Yes - My Orders Last 24 Hours: My Active Orders 06/28/20 09:00 amLODIPine [Norvasc] 10 mg PO DAILY 06/28/20 09:40 Remove Castañeda Catheter [Urinary Catheter Removal] [RC] PER UNIT ROUTINE 06/28/20 11:14 Ready for Discharge [RC] PER UNIT ROUTINE 06/29/20 08:09 [employer] Administrator Discontinue [Cardiac Monitoring Discontinue] [RC] Click to Edit - Plan Plan:: 79 y/o M admitted, for Seizures, possible stroke 1. Generalized seizure - CVA ruled out with CT scan head, CTA head/neck, MRI negative for acute stroke - continue Keppra -PT and speech consulted both saw him and have cleared for discharge but would recommend home health. 2. History CVA - continue brent, statin 3. Delerium: owning at night, spoke with and patient has symptoms of slow cognitive decline at home. VTE prophylaxis: Brent CODE STATUS: DNR/DNI Dispo: Home in a.m.
[2020-06-29] MEDS ORDERED: Potassium Chloride 20 MEQ Tab.ER PO ONE (08:14)
[2020-06-29] MEDS ORDERED: Magnesium Oxide 400 MG Tab PO ONE (08:14)
[2020-06-29] MEDS: Metoprolol Tartrate 50 MG Tab PO SCH (08:30)
[2020-06-29] MEDS: Insulin Aspart 100 Units/ML 3 ML Pen SUBCUT SCH (08:30)
[2020-06-29] MEDS: amLODIPine 5 MG Tab PO SCH (08:31)
[2020-06-29] MEDS: Apixaban 5 MG Tab PO SCH (08:31)
[2020-06-29] MEDS ORDERED: levETIRAcetam 500 MG Tab PO SCH (09:00)
== END 2020-06-29 09:50 | disposition home health service (06) | DRG 101 ==
LOC: MW.ED 02:07 → MW.ICU 03:56 → MW.MS 06-27 18:40
PROVIDERS: ADMIT Student in an Organized Health Care Education/Training Program; ATTEND Student in an Organized Health Care Education/Training Program
DX: R56.9 Unspecified convulsions (principal); G93.40 Encephalopathy, unspecified; E87.2 Acidosis; I10 Essential (primary) hypertension; I69.354 Hemiplegia and hemiparesis following cerebral infarction affecting left non-dominant side; R04.0 Epistaxis; I48.91 Unspecified atrial fibrillation; H54.7 Unspecified visual loss; Z86.73 Personal history of transient ischemic attack (TIA), and cerebral infarction without residual deficits; E78.5 Hyperlipidemia, unspecified; J44.9 Chronic obstructive pulmonary disease, unspecified; E11.40 Type 2 diabetes mellitus with diabetic neuropathy, unspecified; E11.21 Type 2 diabetes mellitus with diabetic nephropathy; M19.90 Unspecified osteoarthritis, unspecified site; F32.9 Major depressive disorder, single episode, unspecified; Z96.652 Presence of left artificial knee joint; Z20.828 Contact with and (suspected) exposure to other viral communicable diseases; D72.829 Elevated white blood cell count, unspecified; D47.3 Essential (hemorrhagic) thrombocythemia; N28.9 Disorder of kidney and ureter, unspecified; R40.0 Somnolence; Z79.01 Long term (current) use of anticoagulants; Z79.4 Long term (current) use of insulin; Z79.899 Other long term (current) drug therapy; Z90.89 Acquired absence of other organs; Z90.49 Acquired absence of other specified parts of digestive tract; I69.992 Facial weakness following unspecified cerebrovascular disease; R41.81 Age-related cognitive decline
CPT/HCPCS: 36415; 51702; 70450; 70496; 70498; 71045; 80053; 80307; 81003; 82550; 82803; 83605; 83735; 84100; 84443; 84484; 85025; 85610; 85730; 93005; 96361; 96374; 99285; A9270; J2060; Q9967; U0002; 70551; 70551-26; 80048; 82962; 92610-GN; 93010; 94640; 97161-GP; 99283; J1200; J1630; J1815-GY; J1953; J2405; J3490; J7030; J7060; J7120; J7620-GY

== ENCOUNTER 2020-09-01 08:52 | Emergency (ER) | payer MEDICARE, BC, OTHER ==
--- NOTE | 2020-09-01 09:03 | EDM.PDOC ---
ED HPI GENERAL MEDICAL PROBLEM - General Chief Complaint: Trauma Stated Complaint: FELL Time Seen by Provider: 09/01/20 09:00 Source of Information: Reports: Patient History Limitations: Reports: No Limitations - History of Present Illness INITIAL COMMENTS - FREE TEXT/NARRATIVE: Patient is an 79-year-old male who presents today after a fall. Patient was in his wheelchair when he fell for unwitnessed. Unsure if patient hit his head but he denies any head injury or LOC. Patient denies any complaints of pain in his extremities or neck. Patient did mention that he has some upper abdominal pain for the past few days that made worse when he coughs the patient still tolerating p.o. has no shortness of breath or other complaints. back Pain Score (Numeric/FACES): 8 - Related Data Allergies Allergy/AdvReac Type Severity Reaction Status Date / Time No Known Allergies Allergy Verified 06/25/20 02:28 Home Meds: Home Meds Fish Oil/DHA/EPA [Fish Oil 1,200 MG] 1 cap PO QAM 05/22/18 [History] Insuln Asp Prot/Insulin Aspart [NovoLOG Mix 70-30] 27 unit SQ ACDINNER 05/22/18 [History] Liraglutide [Victoza] 1.2 mg SQ QAM 05/22/18 [History] Losartan [Cozaar] 100 mg PO QAM 05/22/18 [History] Metoprolol Tartrate 50 mg PO BID 05/22/18 [History] Simvastatin 10 mg PO QPM 05/22/18 [History] amLODIPine Besylate [Amlodipine Besylate] 10 mg PO QAM 05/22/18 [History] Insuln Asp Prot/Insulin Aspart [NovoLOG Mix 70-30] 33 units SQ ACBREAKFAST 05/24/18 [History] Multivitamin [Multivitamins] 1 each PO QAM 08/23/18 [History] metFORMIN [Glucophage] 500 mg PO TIDMEALS 08/23/18 [History] Budesonide/Formoterol Fumarate [Budesonide-Formoterol 160-4.5] 2 inh IH BID 01/15/20 [History] Erythromycin Base [Erythromycin 0.5% Ophth Oint] 1 applic EYEBOTH BEDTIME 01/16/20 [History] Apixaban [Eliquis] 5 mg PO BID #30 tablet 01/17/20 [Rx] Pregabalin 25 mg PO BID 06/25/20 [History] levETIRAcetam [Levetiracetam] 750 mg PO BID #28 tablet 06/28/20 [Rx] levETIRAcetam [Levetiracetam] 750 mg PO BID #60 tablet 06/28/20 [Rx] Past Medical History HEENT History: Reports: Impaired Vision, Other (See Below) Other HEENT History: wears glasses Cardiovascular History: Reports: Afib, Hypertension Respiratory History: Reports: COPD Gastrointestinal History: Reports: None Genitourinary History: Reports: Diabetic Nephropathy Musculoskeletal History: Reports: Arthritis Neurological History: Reports: CVA, Neuropathy, Diabetic Psychiatric History: Reports: Depression Endocrine/Metabolic History: Reports: Diabetes, Type II 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 Hematologic History: Reports: None Immunologic History: Reports: None Oncologic (Cancer) History: Reports: None Dermatologic History: Reports: None - Infectious Disease History Infectious Disease History: Reports: None - Past Surgical History Head Surgeries/Procedures: Reports: None HEENT Surgical History: Reports: Tonsillectomy Respiratory Surgical History: Reports: None GI Surgical History: Reports: Appendectomy Male Surgical History: Reports: None Endocrine Surgical History: Reports: None Musculoskeletal Surgical History: Reports: Knee Replacement, Other (See Below) Other Musculoskeletal Surgeries/Procedures:: left knee replacement, right knee surgery Oncologic Surgical History: Reports: None Social & Family History - Family History Family Medical History: No Pertinent Family History - Caffeine Use Caffeine Use: Reports: None Caffeine Use Comment: Patient refused to answer. Limited information. Patient is confused. Review of Systems - Review of Systems Review Of Systems: See Below Constitutional: Reports: No Symptoms Eyes: Reports: No Symptoms Ears: Reports: No Symptoms Nose: Reports: No Symptoms Mouth/Throat: Reports: No Symptoms Respiratory: Reports: No Symptoms Cardiovascular: Reports: No Symptoms GI/Abdominal: Reports: Abdominal Pain Genitourinary: Reports: No Symptoms Musculoskeletal: Reports: No Symptoms Skin: Reports: No Symptoms Neurological: Reports: No Symptoms Psychiatric: Reports: No Symptoms ED EXAM, GENERAL - Physical Exam Exam: See Below Exam Limited By: No Limitations General Appearance: Alert, WD/WN Eye Exam: Bilateral Eye: EOMI, PERRL Neck: Non-Tender Respiratory/Chest: No Respiratory Distress, Lungs Clear, Normal Breath Sounds Cardiovascular: Normal Peripheral Pulses, Regular Rate, Rhythm Peripheral Pulses: 2+: Radial (L), Radial (R) GI/Abdominal: Normal Bowel Sounds, Soft, Non-Tender Back Exam: Full Range of Motion. No: Vertebral Tenderness Extremities: Normal Inspection, Normal Range of Motion, Non-Tender Neurological: Alert, Oriented, CN II-XII Intact #1 Interpretation EKG Date: 09/01/20 Time: 08:55 Rhythm: A-Fib Rate (Beats/Min): 102 ST-T: Normal Course - Vital Signs Last Recorded V/S: Last Vital Signs Temp 97.7 F 09/01/20 08:52 Pulse 97 09/01/20 10:30 Resp 18 09/01/20 10:25 BP 145/89 H 09/01/20 10:30 Pulse Ox 93 L 09/01/20 10:25 - Orders/Labs/Meds Orders: Active Orders 24 hr Category Date Time Status EKG Documentation Completion [RC] STAT Care 09/01/20 08:59 Active Labs: Laboratory Tests 09/01/20 09/01/20 Range/Units 09:02 09:02 WBC 10.09 (4.0-11.0) K/uL RBC 4.55 (4.50-5.90) M/uL Hgb 10.9 L (13.0-17.0) g/dL Hct 36.8 L (38.0-50.0) % MCV 80.9 (80.0-98.0) fL MCH 24.0 L (27.0-32.0) pg MCHC 29.6 L (31.0-37.0) g/dL RDW Std Deviation 45.3 (28.0-62.0) fl RDW Coeff of Kailey 16 H (11.0-15.0) % Plt Count 451 H (150-400) K/uL MPV 9.50 (7.40-12.00) fL Neut % (Auto) 82.4 H (48.0-80.0) % Lymph % (Auto) 7.1 L (16.0-40.0) % [place] % (Auto) 9.7 (0.0-15.0) % Eos % (Auto) 0.3 (0.0-7.0) % Baso % (Auto) 0.5 (0.0-1.5) % Neut # (Auto) 8.3 H (1.4-5.7) K/uL Lymph # (Auto) 0.7 (0.6-2.4) K/uL [place] # (Auto) 1.0 H (0.0-0.8) K/uL Eos # (Auto) 0.0 (0.0-0.7) K/uL Baso # (Auto) 0.1 (0.0-0.1) K/uL Nucleated RBC % 0.0 /100WBC Nucleated RBCs # 0 K/uL Sodium 136 (136-148) mmol/L Potassium 4.3 (3.5-5.1) mmol/L Chloride 101 (98-107) mmol/L Carbon Dioxide 27.5 (21.0-32.0) mmol/L BUN 19 H (7.0-18.0) mg/dL Creatinine 0.9 (0.8-1.3) mg/dL Est Cr Clr Drug Dosing TNP Estimated GFR (MDRD) > 60.0 ml/min Glucose 161 H (74-106) mg/dL Calcium 8.9 (8.5-10.1) mg/dL Total Bilirubin 0.4 (0.2-1.0) mg/dL AST 22 (15-37) IU/L ALT 41 (14-63) IU/L Alkaline Phosphatase 114 (46-116) U/L Creatine Kinase 102 (26-308) U/L Troponin I < 0.050 (0.000-0.056) ng/mL Total Protein 7.4 (6.4-8.2) g/dL Albumin 3.3 L (3.4-5.0) g/dL Globulin 4.1 H (2.6-4.0) g/dL Albumin/Globulin Ratio 0.8 L (0.9-1.6) Lipase 131 (73-393) U/L Ethyl Alcohol < 3.0 mg/dL Meds: Medications Discontinued Medications Generic Name Dose Route Start Last Admin Trade Name Freq PRN Reason Stop Dose Admin Metoprolol Tartrate 50 mg 09/01/20 09:04 09/01/20 10:30 Lopressor PO 09/01/20 09:05 50 mg ONETIME ONE Administration - Re-Assessments/Exams Free Text/Narrative Re-Assessment/Exam: 09/01/20 11:31 Patient imaging reviewed. Patient pain is controlled the EKG and tropes both negative. Patient pain started after the fall likely muscle skeletal will discharge patient home follow-up PMD. Departure - Departure Time of Disposition: 11:32 Disposition: Home, Self-Care 01 Condition: Good Clinical Impression: Fall - Discharge Information *PRESCRIPTION DRUG MONITORING PROGRAM REVIEWED*: Not Applicable *COPY OF PRESCRIPTION DRUG MONITORING REPORT IN PATIENT FLOR: Not Applicable Referrals: Arcenio Fink MD [Primary Care Provider] - Forms: ED Department Discharge Additional Instructions: The following information is given to patients seen in the emergency department who are being discharged to home. This information is to outline your options for follow-up care. We provide all patients seen in our emergency department with a follow-up referral. The need for follow-up, as well as the timing and circumstances, are variable depending upon the specifics of your emergency department visit. If you don't have a primary care physician on staff, we will provide you with a referral. We always advise you to contact your personal physician following an emergency department visit to inform them of the circumstance of the visit and for follow-up with them and/or the need for any referrals to a consulting specialist. The emergency department will also refer you to a specialist when appropriate. This referral assures that you have the opportunity for follow-up care with a specialist. All of these measure are taken in an effort to provide you with optimal care, which includes your follow-up. Under all circumstances we always encourage you to contact your private physician who remains a resource for coordinating your care. When calling for follow-up care, please make the office aware that this follow-up is from your recent emergency room visit. If for any reason you are refused follow-up, please contact the [facility] Emergency Department at and asked to speak to the emergency department charge nurse. Please follow up with your primary care physician. If you do not have a primary care physician, see below: [facility] [address] [place] [id number] [facility] [address] [place] [id number] These follow-up with your primary care physician as needed if you have any incr eased pain or other complaints please return to the ED. Sepsis Event Note (ED) - Focused Exam Vital Signs: Vital Signs Temp Pulse Pulse Resp BP BP Pulse Ox 09/01/20 10:30 97 145/89 H 09/01/20 10:25 99 18 145/89 H 93 L 09/01/20 08:52 97.7 F 100 18 155/105 H 94 L - My Orders Last 24 Hours: My Active Orders 09/01/20 08:59 EKG Documentation Completion [RC] STAT - Assessment/Plan Last 24 Hours: My Active Orders 09/01/20 08:59 EKG Documentation Completion [RC] STAT Plan: Patient is an 79-year-old male who presents today from a fall from wheelchair. Patient has no signs of obvious injuries or deformities. Patient also mentions some upper abdominal pain will obtain EKG and tropes to ensure no cardiac issues. Also obtain CT head and C-spine.
[2020-09-01] MEDS ORDERED: Metoprolol Tartrate 50 MG Tab PO ONE (09:04)
[2020-09-01 09:42] LABS: BLOOD UREA NITROGEN,BUN 19 mg/dL (7.0-18.0); CARBON DIOXIDE,CO2 27.5 mmol/L (21.0-32.0); CHLORIDE,CL 101 mmol/L (98-107); GLUCOSE RANDOM 161 mg/dL (74-106); LIPASE 131 U/L (73-393); POTASSIUM,K 4.3 mmol/L (3.5-5.1); SODIUM,NA 136 mmol/L (136-148)
--- NOTE | 2020-09-01 10:40 | CT ---
Indication: Status post fall, on blood thinners Technique: Volumetric multidetector CT images of the head were obtained without the administration of low osmolar intravenous contrast. Comparison: CT head June 25, 2020 Findings: There is no intra-axial or extra-axial fluid collection. There is no mass effect or midline shift. There is age-related cortical atrophy with mild sulcal widening and ex vacuo dilatation of the lateral ventricles. There is encephalomalacia of the right frontoparietal, left parietal and peripheral cerebellar hemispheres. There is moderate chronic small vessel disease change within the subcortical and periventricular white matter. Otherwise, the brain parenchyma is preserved in attenuation. The orbits and their contents are grossly within normal limits. The bony calvarium is grossly intact. The paranasal sinuses are clear. The mastoid air cells are well aerated. Impression: Age-related, chronic small vessel disease, and remote ischemic changes of the brain without evidence of new acute intracranial abnormality. Please note that all CT scans at this facility use dose modulation, iterative reconstruction, and/or weight-based dosing when appropriate to reduce radiation dose to as low as reasonably achievable. Dictated by Juan Mena MD @ Sep 01 2020 10:28AM Signed by Dr. Juan Mena @ Sep 01 2020 10:39AM
--- NOTE | 2020-09-01 10:47 | CT ---
Indication: Status post fall Technique: Volumetric multidetector CT images of the cervical spine were obtained without the administration of IV contrast. Comparison: None available. Findings: The cervical vertebral body heights are grossly maintained with minimal endplate Schmorl`s defects. There is no evidence of displaced fracture. There is straightening of the normal cervical lordosis with anterolisthesis of C4 on C5. There is moderate degenerative disc disease with disc height loss and marginal osteophyte formation. There is mild flowing anterior osteophytosis. There is moderate to severe facet arthrosis. The lung apices are clear. Impression: Moderate to severe degenerative changes of the cervical spine without acute osseous abnormality. Please note that all CT scans at this facility use dose modulation, iterative reconstruction, and/or weight-based dosing when appropriate to reduce radiation dose to as low as reasonably achievable. Dictated by Juan Mena MD @ Sep 01 2020 10:29AM Signed by Dr. Juan Mena @ Sep 01 2020 10:45AM
--- NOTE | 2020-09-01 11:18 | CR ---
INDICATION: Fall from standing TECHNIQUE: AP pelvis. COMPARISON: None. FINDINGS: Exam somewhat limited by patient body habitus. No acute fracture identified. The hips appear normally aligned. Mild degenerative changes of both hips. The sacroiliac joints are normal in appearance. Pelvic phleboliths. Soft tissues are unremarkable. IMPRESSION: No acute findings. Dictated by Laverne Albert MD @ Sep 01 2020 11:15AM Signed by Dr. Laverne Albert @ Sep 01 2020 11:17AM
--- NOTE | 2020-09-01 11:27 | CR ---
INDICATION: Fall from standing TECHNIQUE: Chest 2 views. COMPARISON: Chest radiograph 06/26/2020. FINDINGS: There is moderate degradation of image quality. Low lung volumes with bibasilar atelectasis. No pleural effusion or pneumothorax. Mild cardiomegaly. Normal pulmonary vascularity. Degenerative changes of the spine. Age-indeterminate mild anterior wedging of a mid thoracic vertebral body. IMPRESSION: 1. No acute cardiopulmonary findings. 2. Age-indeterminate mild anterior wedging of a mid thoracic vertebral body Dictated by Laverne Albert MD @ Sep 01 2020 11:23AM Signed by Dr. Laverne Albert @ Sep 01 2020 11:26AM
== END 2020-09-01 11:36 | disposition home or self-care (01) ==
LOC: MW.ED 08:52
DX: Z04.3 Encounter for examination and observation following other accident (principal); I48.91 Unspecified atrial fibrillation; I10 Essential (primary) hypertension; J44.9 Chronic obstructive pulmonary disease, unspecified; E11.21 Type 2 diabetes mellitus with diabetic nephropathy; E11.40 Type 2 diabetes mellitus with diabetic neuropathy, unspecified; Z79.01 Long term (current) use of anticoagulants; Z79.4 Long term (current) use of insulin; Z86.73 Personal history of transient ischemic attack (TIA), and cerebral infarction without residual deficits
CPT/HCPCS: 36415; 70450; 71046; 72125; 72170; 80053; 80179; 82550; 83690; 84484; 85025; 93005; 99285; A9270; 93010; 99282

== ENCOUNTER 2020-09-10 14:07 | Emergency (ER) | payer MEDICARE, BC, OTHER ==
[2020-09-10] MEDS ORDERED: Sodium Chloride 0.9% 10 ML Syringe FLUSH PRN (14:37)
[2020-09-10] MEDS ORDERED: Sodium Chloride 0.9% 2.5 ML Syringe FLUSH PRN (14:37)
--- NOTE | 2020-09-10 14:46 | EDM.PDOC ---
ED HPI GENERAL MEDICAL PROBLEM - General Chief Complaint: General Stated Complaint: BODY SWOLLEN Time Seen by Provider: 09/10/20 14:10 Source of Information: Reports: Patient History Limitations: Reports: No Limitations - History of Present Illness INITIAL COMMENTS - FREE TEXT/NARRATIVE: 79-year-old male with history of Afib, diabetes, SHYAM, CVA, HLD, seizure presents with bilateral lower extremity atraumatic nonpainful swelling for 1 week. Associated symptoms include shortness of breath, dyspnea on exertion, orthopnea, decreased urine output, cough with brownish sputum. He denies fever, chills, chest pain, abdominal pain. His notices that his weight has gained from 271 pounds in June 2020 to 293 pounds currently. Today he was seen by Dr. Mead (Podiatry) for left third toe callus removal and was referred here for his lower extremity swelling. ROS: A 10-point review of systems, other than pertinent positives and negatives as stated per HPI, is otherwise negative Past medical history: No additional pertinent history Past Surgical history: No additional pertinent history Social history: No additional pertinent history Family history: No additional pertinent history PHYSICAL EXAM General: AOx4, GCS = 15, BMI 39, No distress HEENT: dry mucous membrane Neck: supple, no meningismus, no Kernig or Brudzinski Cardiac: S1S2 RRR Respiratory: trace bilateral rales, no wheezing Abdomen: Soft, nontender, no rebound or guarding, nondistended, no pulsatile mass. Back: nontender Musculoskeletal: NVI distally, BLE nontender edema, no warmth or erythema. no deformity Neuro: No focal deficits, CN 2 - 12 WNL. - Related Data Allergies Allergy/AdvReac Type Severity Reaction Status Date / Time No Known Allergies Allergy Verified 09/10/20 14:31 Home Meds: Home Meds Fish Oil/DHA/EPA [Fish Oil 1,200 MG] 1 cap PO QAM 05/22/18 [History] Insuln Asp Prot/Insulin Aspart [NovoLOG Mix 70-30] 27 unit SQ ACDINNER 05/22/18 [History] Liraglutide [Victoza] 1.2 mg SQ QAM 05/22/18 [History] Losartan [Cozaar] 100 mg PO QAM 05/22/18 [History] Metoprolol Tartrate 50 mg PO BID 05/22/18 [History] Simvastatin 10 mg PO QPM 05/22/18 [History] amLODIPine Besylate [Amlodipine Besylate] 10 mg PO QAM 05/22/18 [History] Insuln Asp Prot/Insulin Aspart [NovoLOG Mix 70-30] 33 units SQ ACBREAKFAST 05/24/18 [History] Multivitamin [Multivitamins] 1 each PO QAM 08/23/18 [History] metFORMIN [Glucophage] 500 mg PO TIDMEALS 08/23/18 [History] Budesonide/Formoterol Fumarate [Budesonide-Formoterol 160-4.5] 2 inh IH BID 01/15/20 [History] Erythromycin Base [Erythromycin 0.5% Ophth Oint] 1 applic EYEBOTH BEDTIME 01/16/20 [History] Apixaban [Eliquis] 5 mg PO BID #30 tablet 01/17/20 [Rx] Pregabalin 25 mg PO BID 06/25/20 [History] levETIRAcetam [Levetiracetam] 750 mg PO BID #60 tablet 06/28/20 [Rx] Furosemide [Lasix] 20 mg PO DAILY #5 tab 09/10/20 [Rx] Glycerin/Propylene Glycol [Artificial Tears Drops] 30 ml OP Q4H #2 drops 09/10/20 [Rx] Past Medical History HEENT History: Reports: Impaired Vision, Other (See Below) Other HEENT History: wears glasses Cardiovascular History: Reports: Afib, Hypertension Respiratory History: Reports: COPD Gastrointestinal History: Reports: None Genitourinary History: Reports: Diabetic Nephropathy Musculoskeletal History: Reports: Arthritis Neurological History: Reports: CVA, Neuropathy, Diabetic Psychiatric History: Reports: Depression Endocrine/Metabolic History: Reports: Diabetes, Type II Insulin Pump Model and Cork Insulation Setter: None Hematologic History: Reports: None Immunologic History: Reports: None Oncologic (Cancer) History: Reports: None Dermatologic History: Reports: None - Infectious Disease History Infectious Disease History: Reports: None - Past Surgical History Head Surgeries/Procedures: Reports: None HEENT Surgical History: Reports: Tonsillectomy Respiratory Surgical History: Reports: None GI Surgical History: Reports: Appendectomy Male Surgical History: Reports: None Endocrine Surgical History: Reports: None Musculoskeletal Surgical History: Reports: Knee Replacement, Other (See Below) Other Musculoskeletal Surgeries/Procedures:: left knee replacement, right knee surgery Oncologic Surgical History: Reports: None Social & Family History - Family History Family Medical History: No Pertinent Family History Musculoskeletal: Reports: None - Caffeine Use Caffeine Use: Reports: None Caffeine Use Comment: Patient refused to answer. Limited information. Patient is confused. - Recreational Drug Use Recreational Drug Use: No ED ROS GENERAL - Review of Systems Review Of Systems: See Below (see dictation) ED EXAM, GENERAL - Physical Exam Exam: See Below (see dictation) #1 Interpretation EKG Interpretation Comments: Heart rate = 97 bpm, atrial fibrillation, normal QRS interval, no STEMI. EKG and rhythm strip interpreted by me at 1433 Course - Vital Signs Last Recorded V/S: Last Vital Signs Temp 98 F 09/10/20 14:20 Pulse 100 09/10/20 14:20 Resp 20 09/10/20 14:20 BP 171/101 H 09/10/20 14:20 Pulse Ox 97 09/10/20 14:20 - Orders/Labs/Meds Orders: Active Orders 24 hr Category Date Time Status Cardiac Monitoring [RC] . DIRECTED Care 09/10/20 14:37 Active EKG Documentation Completion [RC] STAT Care 09/10/20 14:38 Active Pulse Oximetry [RC] ASDIRECTED Care 09/10/20 14:37 Active Sodium Chloride 0.9% [Saline Flush] Med 09/10/20 14:37 Active 10 ml FLUSH ASDIRECTED PRN Sodium Chloride 0.9% [Saline Flush] Med 09/10/20 14:37 Active 2.5 ml FLUSH ASDIRECTED PRN Saline Lock Insert [OM.PC] Stat Oth 09/10/20 14:37 Ordered Medication Orders Sodium Chloride (Saline Flush) 10 ml FLUSH ASDIRECTED PRN PRN Reason: Keep Vein Open Last Admin: 09/10/20 15:00 Dose: 10 ml Documented by: HANSMARIAN Sodium Chloride (Saline Flush) 2.5 ml FLUSH ASDIRECTED PRN PRN Reason: Keep Vein Open Last Admin: 09/10/20 15:00 Dose: 2.5 ml Documented by: DOV Labs: Laboratory Tests 09/10/20 09/10/20 09/10/20 Range/Units 14:30 14:30 14:30 WBC 8.84 (4.0-11.0) K/uL RBC 4.31 L (4.50-5.90) M/uL Hgb 10.4 L (13.0-17.0) g/dL Hct 34.4 L (38.0-50.0) % MCV 79.8 L (80.0-98.0) fL MCH 24.1 L (27.0-32.0) pg MCHC 30.2 L (31.0-37.0) g/dL RDW Std Deviation 46.2 (28.0-62.0) fl RDW Coeff of Kailey 16 H (11.0-15.0) % Plt Count 471 H (150-400) K/uL MPV 9.50 (7.40-12.00) fL Neut % (Auto) 60.9 (48.0-80.0) % Lymph % (Auto) 26.1 (16.0-40.0) % [place] % (Auto) 9.3 (0.0-15.0) % Eos % (Auto) 2.9 (0.0-7.0) % Baso % (Auto) 0.8 (0.0-1.5) % Neut # (Auto) 5.4 (1.4-5.7) K/uL Lymph # (Auto) 2.3 (0.6-2.4) K/uL [place] # (Auto) 0.8 (0.0-0.8) K/uL Eos # (Auto) 0.3 (0.0-0.7) K/uL Baso # (Auto) 0.1 (0.0-0.1) K/uL Nucleated RBC % 0.0 /100WBC Nucleated RBCs # 0 K/uL INR 1.03 Lactate 1.5 (0.20-2.00) mmol/L Sodium (136-148) mmol/L Potassium (3.5-5.1) mmol/L Chloride (98-107) mmol/L Carbon Dioxide (21.0-32.0) mmol/L BUN (7.0-18.0) mg/dL Creatinine (0.8-1.3) mg/dL Est Cr Clr Drug Dosing mL/min Estimated GFR (MDRD) ml/min Glucose (74-106) mg/dL Calcium (8.5-10.1) mg/dL Magnesium (1.8-2.4) mg/dL Total Bilirubin (0.2-1.0) mg/dL AST (15-37) IU/L ALT (14-63) IU/L Alkaline Phosphatase (46-116) U/L Troponin I (0.000-0.056) ng/mL B-Natriuretic Peptide (<100) PG/ML Total Protein (6.4-8.2) g/dL Albumin (3.4-5.0) g/dL Globulin (2.6-4.0) g/dL Albumin/Globulin Ratio (0.9-1.6) Urine Color Urine Appearance Urine pH (5.0-8.0) Ur Specific [place] (1.001-1.035) Urine Protein (NEGATIVE) mg/dL Urine Glucose (UA) (NEGATIVE) mg/dL Urine Ketones (NEGATIVE) mg/dL Urine Occult Blood (NEGATIVE) Urine Nitrite (NEGATIVE) Urine Bilirubin (NEGATIVE) Urine Urobilinogen (<2.0) EU/dL Ur Leukocyte Esterase (NEGATIVE) SARS-CoV-2 RNA (MICHAEL) (NEGATIVE) 09/10/20 09/10/20 09/10/20 Range/Units 14:30 14:30 15:05 WBC (4.0-11.0) K/uL RBC (4.50-5.90) M/uL Hgb (13.0-17.0) g/dL Hct (38.0-50.0) % MCV (80.0-98.0) fL MCH (27.0-32.0) pg MCHC (31.0-37.0) g/dL RDW Std Deviation (28.0-62.0) fl RDW Coeff of Kailey (11.0-15.0) % Plt Count (150-400) K/uL MPV (7.40-12.00) fL Neut % (Auto) (48.0-80.0) % Lymph % (Auto) (16.0-40.0) % [place] % (Auto) (0.0-15.0) % Eos % (Auto) (0.0-7.0) % Baso % (Auto) (0.0-1.5) % Neut # (Auto) (1.4-5.7) K/uL Lymph # (Auto) (0.6-2.4) K/uL [place] # (Auto) (0.0-0.8) K/uL Eos # (Auto) (0.0-0.7) K/uL Baso # (Auto) (0.0-0.1) K/uL Nucleated RBC % /100WBC Nucleated RBCs # K/uL INR Lactate (0.20-2.00) mmol/L Sodium 139 (136-148) mmol/L Potassium 4.4 (3.5-5.1) mmol/L Chloride 105 (98-107) mmol/L Carbon Dioxide 25.5 (21.0-32.0) mmol/L BUN 16 (7.0-18.0) mg/dL Creatinine 0.8 (0.8-1.3) mg/dL Est Cr Clr Drug Dosing 79.49 mL/min Estimated GFR (MDRD) > 60.0 ml/min Glucose 144 H (74-106) mg/dL Calcium 9.0 (8.5-10.1) mg/dL Magnesium 2.0 (1.8-2.4) mg/dL Total Bilirubin 0.2 (0.2-1.0) mg/dL AST 35 (15-37) IU/L ALT 56 (14-63) IU/L Alkaline Phosphatase 119 H (46-116) U/L Troponin I < 0.050 (0.000-0.056) ng/mL B-Natriuretic Peptide 86 (<100) PG/ML Total Protein 7.3 (6.4-8.2) g/dL Albumin 3.2 L (3.4-5.0) g/dL Globulin 4.1 H (2.6-4.0) g/dL Albumin/Globulin Ratio 0.8 L (0.9-1.6) Urine Color Urine Appearance Urine pH (5.0-8.0) Ur Specific [place] (1.001-1.035) Urine Protein (NEGATIVE) mg/dL Urine Glucose (UA) (NEGATIVE) mg/dL Urine Ketones (NEGATIVE) mg/dL Urine Occult Blood (NEGATIVE) Urine Nitrite (NEGATIVE) Urine Bilirubin (NEGATIVE) Urine Urobilinogen (<2.0) EU/dL Ur Leukocyte Esterase (NEGATIVE) SARS-CoV-2 RNA (MICHAEL) NEGATIVE (NEGATIVE) 09/10/20 Range/Units 16:00 WBC (4.0-11.0) K/uL RBC (4.50-5.90) M/uL Hgb (13.0-17.0) g/dL Hct (38.0-50.0) % MCV (80.0-98.0) fL MCH (27.0-32.0) pg MCHC (31.0-37.0) g/dL RDW Std Deviation (28.0-62.0) fl RDW Coeff of Kailey (11.0-15.0) % Plt Count (150-400) K/uL MPV (7.40-12.00) fL Neut % (Auto) (48.0-80.0) % Lymph % (Auto) (16.0-40.0) % [place] % (Auto) (0.0-15.0) % Eos % (Auto) (0.0-7.0) % Baso % (Auto) (0.0-1.5) % Neut # (Auto) (1.4-5.7) K/uL Lymph # (Auto) (0.6-2.4) K/uL [place] # (Auto) (0.0-0.8) K/uL Eos # (Auto) (0.0-0.7) K/uL Baso # (Auto) (0.0-0.1) K/uL Nucleated RBC % /100WBC Nucleated RBCs # K/uL INR Lactate (0.20-2.00) mmol/L Sodium (136-148) mmol/L Potassium (3.5-5.1) mmol/L Chloride (98-107) mmol/L Carbon Dioxide (21.0-32.0) mmol/L BUN (7.0-18.0) mg/dL Creatinine (0.8-1.3) mg/dL Est Cr Clr Drug Dosing mL/min Estimated GFR (MDRD) ml/min Glucose (74-106) mg/dL Calcium (8.5-10.1) mg/dL Magnesium (1.8-2.4) mg/dL Total Bilirubin (0.2-1.0) mg/dL AST (15-37) IU/L ALT (14-63) IU/L Alkaline Phosphatase (46-116) U/L Troponin I (0.000-0.056) ng/mL B-Natriuretic Peptide (<100) PG/ML Total Protein (6.4-8.2) g/dL Albumin (3.4-5.0) g/dL Globulin (2.6-4.0) g/dL Albumin/Globulin Ratio (0.9-1.6) Urine Color YELLOW Urine Appearance CLEAR Urine pH 6.0 (5.0-8.0) Ur Specific [place] 1.015 (1.001-1.035) Urine Protein NEGATIVE (NEGATIVE) mg/dL Urine Glucose (UA) NEGATIVE (NEGATIVE) mg/dL Urine Ketones NEGATIVE (NEGATIVE) mg/dL Urine Occult Blood NEGATIVE (NEGATIVE) Urine Nitrite NEGATIVE (NEGATIVE) Urine Bilirubin NEGATIVE (NEGATIVE) Urine Urobilinogen 0.2 (<2.0) EU/dL Ur Leukocyte Esterase NEGATIVE (NEGATIVE) SARS-CoV-2 RNA (MICHAEL) (NEGATIVE) Meds: Medications Generic Name Dose Route Start Last Admin Trade Name Freq PRN Reason Stop Dose Admin Sodium Chloride 10 ml 09/10/20 14:37 09/10/20 15:00 Saline Flush FLUSH 10 ml ASDIRECTED PRN Administration Keep Vein Open Sodium Chloride 2.5 ml 09/10/20 14:37 09/10/20 15:00 Saline Flush FLUSH 2.5 ml ASDIRECTED PRN Administration Keep Vein Open Discontinued Medications Generic Name Dose Route Start Last Admin Trade Name Freq PRN Reason Stop Dose Admin Furosemide 20 mg 09/10/20 18:00 09/10/20 18:07 Lasix IVPUSH 09/10/20 18:01 20 mg NOW ONE Administration - Re-Assessments/Exams Free Text/Narrative Re-Assessment/Exam: 09/10/20 18:18 After IV Lasix 20 mg in the ER, the patient improved and is currently stable for discharge. I performed a repeat exam and did not appreciate new abnormal findings. Patient exhibits normal vital signs and has a normal gait on road test. I advised the patient to return to the ER for reevaluation if symptoms worsened, including fever, worsening pain, or any other worrisome symptoms. I instructed the patient to follow up with their PCP within 2-3 days. MEDICAL DECISION MAKING: I reviewed the patients past medical records, lab and radiographic findings. I discussed the case with the patient. My differential diagnosis included: CHF exacerbation, fluid overload, DVT. Ultrasound was negative for lower extremity DVT. His BNP and troponin were unremarkable, do not suspect CHF exacerbation or ACS. His EKG was unremarkable. He did not have nephrogenic edema, kidney function was unremarkable. He is stable for short course of outpatient diuretics, given instructions to follow-up with his PCP early next week. Departure - Departure Time of Disposition: 18:19 Disposition: Home, Self-Care 01 Condition: Good Clinical Impression: Peripheral edema - Discharge Information *PRESCRIPTION DRUG MONITORING PROGRAM REVIEWED*: Not Applicable *COPY OF PRESCRIPTION DRUG MONITORING REPORT IN PATIENT FLOR: Not Applicable Prescriptions: Glycerin/Propylene Glycol [Artificial Tears Drops] 30 ml OP Q4H #2 drops Furosemide [Lasix] 20 mg PO DAILY #5 tab Instructions: Peripheral Edema Referrals: Arcenio Fink MD [Primary Care Provider] - 3 Days Forms: ED Department Discharge Additional Instructions: The need for follow-up, as well as the timing and circumstances, are variable depending upon the specifics of your emergency department visit. If you don't have a primary care physician on staff, we will provide you with a referral. We always advise you to contact your personal physician following an emergency department visit to inform them of the circumstance of the visit and for follow-up with them and/or the need for any referrals to a consulting specialist. The emergency department will also refer you to a specialist when appropriate. This referral assures that you have the opportunity for follow-up care with a specialist. All of these measure are taken in an effort to provide you with optimal care, which includes your follow-up. Under all circumstances we always encourage you to contact your private physician who remains a resource for coordinating your care. When calling for follow-up care, please make the office aware that this follow-up is from your recent emergency room visit. If for any reason you are refused follow-up, please contact the [facility] Emergency Department at and asked to speak to the emergency department charge nurse. If you do not have a primary care doctor, please follow up with the clinics below within 3-5 days. [facility] - [facility] [address] [place] [id number] [facility] [address] [place] [id number] Sepsis Event Note (ED) - Evaluation Sepsis Screening Result: No Definite Risk - Focused Exam Vital Signs: Vital Signs Temp Pulse Resp BP Pulse Ox 09/10/20 14:20 98 F 100 20 171/101 H 97 - My Orders Last 24 Hours: My Active Orders 09/10/20 14:37 Cardiac Monitoring [RC] . DIRECTED Pulse Oximetry [RC] ASDIRECTED Sodium Chloride 0.9% [Saline Flush] 10 ml FLUSH ASDIRECTED PRN Sodium Chloride 0.9% [Saline Flush] 2.5 ml FLUSH ASDIRECTED PRN Saline Lock Insert [OM.PC] Stat 09/10/20 14:38 EKG Documentation Completion [RC] STAT - Assessment/Plan Last 24 Hours: My Active Orders 09/10/20 14:37 Cardiac Monitoring [RC] . DIRECTED Pulse Oximetry [RC] ASDIRECTED Sodium Chloride 0.9% [Saline Flush] 10 ml FLUSH ASDIRECTED PRN Sodium Chloride 0.9% [Saline Flush] 2.5 ml FLUSH ASDIRECTED PRN Saline Lock Insert [OM.PC] Stat 09/10/20 14:38 EKG Documentation Completion [RC] STAT
[2020-09-10 15:16] LABS: BLOOD UREA NITROGEN,BUN 16 mg/dL (7.0-18.0); CARBON DIOXIDE,CO2 25.5 mmol/L (21.0-32.0); CHLORIDE,CL 105 mmol/L (98-107); GLUCOSE RANDOM 144 mg/dL (74-106); POTASSIUM,K 4.4 mmol/L (3.5-5.1); SODIUM,NA 139 mmol/L (136-148)
--- NOTE | 2020-09-10 15:42 | CR ---
INDICATION: Shortness of breath TECHNIQUE: Chest 1 view. COMPARISON: 09/01/2019 FINDINGS: Cardiovascular and mediastinum: Mild cardiomegaly. Mediastinum is within normal limits. Lungs and pleural space: Hyperinflation. Lungs are clear. No sign of infiltrate or mass. No sign of pleural effusion. No pneumothorax. Bones and soft tissues: Degenerative changes thoracic spine. IMPRESSION: No acute pulmonary or cardiac abnormalities. Cardiomegaly. Hyperinflation. Dictated by Julian De Guzman MD @ Sep 10 2020 3:36PM Signed by Dr. Julian De Guzman @ Sep 10 2020 3:40PM
--- NOTE | 2020-09-10 16:48 | US ---
INDICATION: LE SWELLING TECHNIQUE: Ultrasound venous duplex lower extremity bilateral. Compression venous exam was performed using hendrix scale, color Doppler, and spectral Doppler imaging. COMPARISON: None. FINDINGS: Sonographic imaging demonstrates the common femoral, deep femoral, superficial femoral, popliteal, posterior tibial and greater saphenous veins to be fully compressible with normal color Doppler blood flow in both lower extremities. IMPRESSION: Normal bilateral lower extremity venous ultrasound, no sign of deep venous thrombosis. Dictated by: Julian De Guzman MD @ 09/10/2020 16:46:01 (Electronically Signed)
[2020-09-10] MEDS ORDERED: Furosemide 40 MG/4 ML VIAL IVPUSH ONE (18:00)
== END 2020-09-10 18:47 | disposition home or self-care (01) ==
LOC: MW.ED 14:07
DX: R60.0 Localized edema (principal); I48.91 Unspecified atrial fibrillation; I10 Essential (primary) hypertension; J44.9 Chronic obstructive pulmonary disease, unspecified; E11.21 Type 2 diabetes mellitus with diabetic nephropathy; E11.40 Type 2 diabetes mellitus with diabetic neuropathy, unspecified; M19.90 Unspecified osteoarthritis, unspecified site; R56.9 Unspecified convulsions; E78.5 Hyperlipidemia, unspecified; Z79.899 Other long term (current) drug therapy; Z79.4 Long term (current) use of insulin; Z79.01 Long term (current) use of anticoagulants; Z20.822 Contact with and (suspected) exposure to COVID-19
CPT/HCPCS: 36415; 71045; 80053; 81003; 83605; 83735; 83880; 84484; 85025; 85610; 93005; 93970; 96374; 99285; J1940; U0002; 93010; 99283

== ENCOUNTER 2021-02-02 09:24 | Emergency (ER) | payer MEDICARE, BC, OTHER ==
--- NOTE | 2021-02-02 09:59 | EDM.PDOC ---
ED HPI GENERAL MEDICAL PROBLEM - General Chief Complaint: General Stated Complaint: WEAKNESS IN ARMS AND LEGS Time Seen by Provider: 02/02/21 09:30 - History of Present Illness INITIAL COMMENTS - FREE TEXT/NARRATIVE: Patient presents to the emergency department with weakness. Patient had gotten out of the shower and states that he often has trouble with his left knee after knee replacement a number of years ago. He was unable to fully support himself. The states it looked like his whole body was weak and the ambulance was called. The patient feels better now. Patient states he gets like this once in a while. The states he has never been like this to this extent in the past. History of hypertension diabetes, A. 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 Patient denies any chest pain. There is chronic unchanged shortness of breath. Patient has a cough but does not look at the color the sputum and this is unchanged. Patient denies any vomiting or diarrhea. There is no abdominal pain. Patient has been struggling with large lower extremity edema since September. The patient was previously on Lasix and a pproximately a week ago they put in a Castañeda because he was having some difficulty evacuating his bladder fully and Lasix was taken off at that time. The states that she thinks his weight is up by about 8 pounds. Patient denies any other focal weakness. No headache. Patient denies midline back pain. - Related Data Allergies Allergy/AdvReac Type Severity Reaction Status Date / Time No Known Allergies Allergy Verified 09/10/20 14:31 Home Meds: Home Meds Fish Oil/DHA/EPA [Fish Oil 1,200 MG] 1 cap PO QAM 05/22/18 [History] Insuln Asp Prot/Insulin Aspart [NovoLOG Mix 70-30] 27 unit SQ ACDINNER 05/22/18 [History] Liraglutide [Victoza] 1.2 mg SQ QAM 05/22/18 [History] Losartan [Cozaar] 100 mg PO QAM 05/22/18 [History] Metoprolol Tartrate 50 mg PO BID 05/22/18 [History] Simvastatin 10 mg PO QPM 05/22/18 [History] Insuln Asp Prot/Insulin Aspart [NovoLOG Mix 70-30] 33 units SQ ACBREAKFAST 05/24/18 [History] Multivitamin [Multivitamins] 1 each PO QAM 08/23/18 [History] metFORMIN [Glucophage] 500 mg PO TIDMEALS 08/23/18 [History] Budesonide/Formoterol Fumarate [Budesonide-Formoterol 160-4.5] 2 inh IH BID 01/15/20 [History] Erythromycin Base [Erythromycin 0.5% Ophth Oint] 1 applic EYEBOTH BEDTIME 01/16/20 [History] Apixaban [Eliquis] 5 mg PO BID #30 tablet 01/17/20 [Rx] Pregabalin 25 mg PO BID 06/25/20 [History] levETIRAcetam [Levetiracetam] 750 mg PO BID #60 tablet 06/28/20 [Rx] Furosemide [Lasix] 20 mg PO DAILY #5 tab 09/10/20 [Rx] Glycerin/Propylene Glycol [Artificial Tears Drops] 30 ml OP Q4H #2 drops 09/10/20 [Rx] Semaglutide [Ozempic] 2 mg SQ WEEKLY 02/02/21 [History] Past Medical History HEENT History: Reports: Impaired Vision, Other (See Below) Other HEENT History: wears glasses Cardiovascular History: Reports: Afib, Hypertension Respiratory History: Reports: COPD Gastrointestinal History: Reports: None Genitourinary History: Reports: Diabetic Nephropathy Musculoskeletal History: Reports: Arthritis Neurological History: Reports: CVA, Neuropathy, Diabetic Psychiatric History: Reports: Depression Endocrine/Metabolic History: Reports: Diabetes, Type II Insulin Pump Model and Law Enforcement Officer: None Hematologic History: Reports: None Immunologic History: Reports: None Oncologic (Cancer) History: Reports: None Dermatologic History: Reports: None - Infectious Disease History Infectious Disease History: Reports: None - Past Surgical History Head Surgeries/Procedures: Reports: None HEENT Surgical History: Reports: Tonsillectomy Respiratory Surgical History: Reports: None GI Surgical History: Reports: Appendectomy Male Surgical History: Reports: None Endocrine Surgical History: Reports: None Musculoskeletal Surgical History: Reports: Knee Replacement, Other (See Below) Other Musculoskeletal Surgeries/Procedures:: left knee replacement, right knee surgery Oncologic Surgical History: Reports: None Social & Family History - Family History Family Medical History: No Pertinent Family History Musculoskeletal: Reports: None - Tobacco Use Tobacco Use Status *Q: Never Tobacco User Second Hand Smoke Exposure: No - Caffeine Use Caffeine Use: Reports: None Caffeine Use Comment: Patient refused to answer. Limited information. Patient is confused. - Recreational Drug Use Recreational Drug Use: No ED ROS GENERAL - Review of Systems Review Of Systems: See Below ED EXAM, GENERAL - Physical Exam Exam: See Below Free Text/Narrative:: CONSTITUTIONAL: well appearing in no acute distress SKIN: Warm, dry, and intact without rash HENT: Normocephalic, atraumatic, PULMONARY: clear to ausculation bilaterally. No rales, rhonchi, wheezing CARDIOVASCULAR: regular rate, No murmur, rubs, or gallops GASTROINTESTINAL: nondistended, nontender NEUROLOGIC: normal speech, II-XII intact. light touch/5/5 power equal and symmetric in upper and lower extremities without deficit MUSCULOSKELETAL: Large bilateral pitting edema. PSYCHIATRIC: normal mood and affect #1 Interpretation EKG Date: 02/02/21 Time: 10:36 EKG Interpretation Comments: 92, A. fib, right bundle branch block, nonspecific ST/T findings. Relatively unchanged as compared to prior EKG. Course - Vital Signs Text/Narrative:: Differential Diagnosis: Dehydration, CVA, spinal cord pathology, UTI, anemia, dehydration, pneumonia, other Patient presents to the emergency department with what sounds like an episode of generalized weakness that is resolved. Patient does have some fluid retention with lower extremity edema but there is no overt heart failure decompensation as it relates to dyspnea that is beyond baseline, hypoxia, adventitious breath sounds or chest x-ray findings. Patient does have some very mild interval anemia. Patient tells me that he had a negative colonoscopy about a year ago and he denies any red or black stool. Patient is guaiac negative on exam and the patient is hemodynamically stable. The urine is from an indwelling catheter specimen so this has been sent to lab for culture to see if he findings on UA could possibly represent any UTI. But the patient has no fever or white blood cell count elevation. The end of the work-up is unremarkable. Patient was ambulated and back to baseline. I spoke to discuss patient's ED visit here with his primary care doctor, Dr. Fink, and he will follow up with the patient closely as an outpatient Last Recorded V/S: Last Vital Signs Temp 36.8 C 02/02/21 13:26 Pulse 84 02/02/21 13:26 Resp 18 02/02/21 13:26 BP 162/71 H 02/02/21 13:26 Pulse Ox 97 02/02/21 13:26 - Orders/Labs/Meds Orders: Active Orders 24 hr Category Date Time Status EKG 12 Lead [EKG Documentation Completion] [RC] STAT Care 02/02/21 09:53 Active CULTURE URINE [MREF] Stat Lab 02/02/21 12:08 Ordered Labs: Laboratory Tests 02/02/21 02/02/21 02/02/21 Range/Units 10:01 10:01 10:01 WBC 9.06 (4.0-11.0) K/uL RBC 4.55 (4.50-5.90) M/uL Hgb 9.0 L (13.0-17.0) g/dL Hct 31.5 L (38.0-50.0) % MCV 69.2 L (80.0-98.0) fL MCH 19.8 L (27.0-32.0) pg MCHC 28.6 L (31.0-37.0) g/dL RDW Std Deviation 50.0 (28.0-62.0) fl RDW Coeff of Kailey 20 H (11.0-15.0) % Plt Count 494 H (150-400) K/uL MPV 8.60 (7.40-12.00) fL Neut % (Auto) 74.5 (48.0-80.0) % Lymph % (Auto) 11.7 L (16.0-40.0) % [place] % (Auto) 9.9 (0.0-15.0) % Eos % (Auto) 3.1 (0.0-7.0) % Baso % (Auto) 0.8 (0.0-1.5) % Neut # (Auto) 6.8 H (1.4-5.7) K/uL Lymph # (Auto) 1.1 (0.6-2.4) K/uL [place] # (Auto) 0.9 H (0.0-0.8) K/uL Eos # (Auto) 0.3 (0.0-0.7) K/uL Baso # (Auto) 0.1 (0.0-0.1) K/uL Nucleated RBC % 0.0 /100WBC Nucleated RBCs # 0 K/uL Sodium 139 (136-148) mmol/L Potassium 4.3 (3.5-5.1) mmol/L Chloride 103 (98-107) mmol/L Carbon Dioxide 27.4 (21.0-32.0) mmol/L BUN 17 (7.0-18.0) mg/dL Creatinine 0.9 (0.8-1.3) mg/dL Est Cr Clr Drug Dosing 69.46 mL/min Estimated GFR (MDRD) > 60.0 ml/min Glucose 50 L (74-106) mg/dL Lactic Acid (0.4-2.0) mmol/L Calcium 8.6 (8.5-10.1) mg/dL Total Bilirubin 0.2 (0.2-1.0) mg/dL AST 27 (15-37) IU/L ALT 21 (14-63) IU/L Alkaline Phosphatase 100 (46-116) U/L Troponin I < 0.050 (0.000-0.056) ng/mL B-Natriuretic Peptide 107 H (<100) PG/ML Total Protein 6.6 (6.4-8.2) g/dL Albumin 2.7 L (3.4-5.0) g/dL Globulin 3.9 (2.6-4.0) g/dL Albumin/Globulin Ratio 0.7 L (0.9-1.6) Urine Color Urine Appearance Urine pH (5.0-8.0) Ur Specific [place] (1.001-1.035) Urine Protein (NEGATIVE) mg/dL Urine Glucose (UA) (NEGATIVE) mg/dL Urine Ketones (NEGATIVE) mg/dL Urine Occult Blood (NEGATIVE) Urine Nitrite (NEGATIVE) Urine Bilirubin (NEGATIVE) Urine Urobilinogen (<2.0) EU/dL Ur Leukocyte Esterase (NEGATIVE) Urine RBC (0-2/HPF) Urine WBC (0-5/HPF) Ur Epithelial Cells (NONE-FEW) Urine Bacteria (NEGATIVE) Urine Mucus (NONE-MOD) 02/02/21 02/02/21 Range/Units 10:01 11:24 WBC (4.0-11.0) K/uL RBC (4.50-5.90) M/uL Hgb (13.0-17.0) g/dL Hct (38.0-50.0) % MCV (80.0-98.0) fL MCH (27.0-32.0) pg MCHC (31.0-37.0) g/dL RDW Std Deviation (28.0-62.0) fl RDW Coeff of Kailey (11.0-15.0) % Plt Count (150-400) K/uL MPV (7.40-12.00) fL Neut % (Auto) (48.0-80.0) % Lymph % (Auto) (16.0-40.0) % [place] % (Auto) (0.0-15.0) % Eos % (Auto) (0.0-7.0) % Baso % (Auto) (0.0-1.5) % Neut # (Auto) (1.4-5.7) K/uL Lymph # (Auto) (0.6-2.4) K/uL [place] # (Auto) (0.0-0.8) K/uL Eos # (Auto) (0.0-0.7) K/uL Baso # (Auto) (0.0-0.1) K/uL Nucleated RBC % /100WBC Nucleated RBCs # K/uL Sodium (136-148) mmol/L Potassium (3.5-5.1) mmol/L Chloride (98-107) mmol/L Carbon Dioxide (21.0-32.0) mmol/L BUN (7.0-18.0) mg/dL Creatinine (0.8-1.3) mg/dL Est Cr Clr Drug Dosing mL/min Estimated GFR (MDRD) ml/min Glucose (74-106) mg/dL Lactic Acid 2.0 (0.4-2.0) mmol/L Calcium (8.5-10.1) mg/dL Total Bilirubin (0.2-1.0) mg/dL AST (15-37) IU/L ALT (14-63) IU/L Alkaline Phosphatase (46-116) U/L Troponin I (0.000-0.056) ng/mL B-Natriuretic Peptide (<100) PG/ML Total Protein (6.4-8.2) g/dL Albumin (3.4-5.0) g/dL Globulin (2.6-4.0) g/dL Albumin/Globulin Ratio (0.9-1.6) Urine Color YELLOW Urine Appearance SLT CLOUDY Urine pH 5.5 (5.0-8.0) Ur Specific [place] 1.025 (1.001-1.035) Urine Protein 100 H (NEGATIVE) mg/dL Urine Glucose (UA) NEGATIVE (NEGATIVE) mg/dL Urine Ketones NEGATIVE (NEGATIVE) mg/dL Urine Occult Blood LARGE H (NEGATIVE) Urine Nitrite POSITIVE H (NEGATIVE) Urine Bilirubin NEGATIVE (NEGATIVE) Urine Urobilinogen 0.2 (<2.0) EU/dL Ur Leukocyte Esterase MODERATE H (NEGATIVE) Urine RBC 75-100 (0-2/HPF) Urine WBC 31-37 (0-5/HPF) Ur Epithelial Cells RARE (NONE-FEW) Urine Bacteria 2+ H (NEGATIVE) Urine Mucus LIGHT (NONE-MOD) Departure - Departure Time of Disposition: 13:39 Disposition: DC/Tfer W/I Hosp To Swing 61 Condition: Good Clinical Impression: General weakness - Discharge Information Instructions: Weakness, [id number] Referrals: Arcenio Fink MD [Primary Care Provider] - Forms: ED Department Discharge Additional Instructions: - Discharge Information Instructions: Weakness Referrals: Arcenio Fink MD [Ordering Only Provider] - Forms: ED Department Discharge Additional Instructions: Return for fevers, chest pain, worsening shortness of breath, significant weakness, any change or worsening condition or recurrence. Follow-up with your primary care doctor in the next 2 or 3 days for reevaluation The following information is given to patients seen in the emergency department who are being discharged to home. This information is to outline your options for follow-up care. We provide all patients seen in our emergency department with a follow-up referral. The need for follow-up, as well as the timing and circumstances, are variable depending upon the specifics of your emergency department visit. If you don't have a primary care physician on staff, we will provide you with a referral. We always advise you to contact your personal physician following an emergency department visit to inform them of the circumstance of the visit and for follow-up with them and/or the need for any referrals to a consulting specialist. The emergency department will also refer you to a specialist when appropriate. This referral assures that you have the opportunity for follow-up care with a specialist. All of these measure are taken in an effort to provide you with optimal care, which includes your follow-up. Primary care clinics in the area: [facility] [address] [place] [address] [facility] [address] [place] [address] Under all circumstances we always encourage you to contact your private physician who remains a resource for coordinating your care. When calling for follow-up care, please make the office aware that this follow-up is from your recent emergency room visit. If for any reason you are refused follow-up, please contact the [facility] Emergency Department at and asked to speak to the emergency department charge nurse. Sepsis Event Note (ED) - Evaluation Sepsis Screening Result: No Definite Risk - Focused Exam Vital Signs: Vital Signs Temp Pulse Resp BP Pulse Ox 02/02/21 13:26 36.8 C 84 18 162/71 H 97 02/02/21 12:25 88 18 173/104 H 97 02/02/21 11:37 98 18 148/105 H 97 02/02/21 10:09 94 18 112/68 97 02/02/21 09:27 36.7 C 90 18 110/61 97 - My Orders Last 24 Hours: My Active Orders 02/02/21 09:53 EKG 12 Lead [EKG Documentation Completion] [RC] STAT 02/02/21 12:08 CULTURE URINE [MREF] Stat - Assessment/Plan Last 24 Hours: My Active Orders 02/02/21 09:53 EKG 12 Lead [EKG Documentation Completion] [RC] STAT 02/02/21 12:08 CULTURE URINE [MREF] Stat
--- NOTE | 2021-02-02 10:34 | CR ---
INDICATION: Shortness of breath TECHNIQUE: Chest 1 view. COMPARISON: 09/10/2020 FINDINGS: Cardiovascular and mediastinum: Cardiomegaly. Mediastinum is within normal limits. Lungs and pleural space: Lungs are clear. No sign of infiltrate or mass. No sign of pleural effusion. No pneumothorax. Bones and soft tissues: No significant findings. IMPRESSION: No acute pulmonary or cardiac abnormalities. Cardiomegaly Dictated by Julian De Guzman MD @ 02/02/2021 10:33:[address] Julian De Guzman @ Feb 02 2021 10:33AM
--- NOTE | 2021-02-02 10:59 | CT ---
Indication: Leg weakness, history of squamous cell carcinoma Technique: Volumetric multidetector CT images of the head were obtained without the administration of low osmolar intravenous contrast. Comparison: CT head September 01, 2020 Findings: There is no intra-axial or extra-axial fluid collection. There is no mass effect or midline shift. There is age-related cortical atrophy with mild sulcal widening and ex vacuo dilatation of the lateral ventricles. Again seen is encephalomalacia within the left greater than right parietal lobes with moderate chronic small vessel disease change within the subcortical and periventricular white matter. Likely old lacunar changes of the basal ganglia are again seen. The remaining brain parenchyma is otherwise preserved in attenuation and hednrix-white differentiation. The orbits and their contents are grossly within normal limits. The bony calvarium is grossly intact. The paranasal sinuses are clear. The mastoid air cells are well aerated. Impression: Stable remote ischemic and chronic small-vessel disease changes of the brain without new acute intracranial abnormality. Please note that all CT scans at this facility use dose modulation, iterative reconstruction, and/or weight-based dosing when appropriate to reduce radiation dose to as low as reasonably achievable. Dictated by Juan Mena MD @ 02/02/2021 10:59:[address] Juan Mena @ Feb 02 2021 10:59AM
[2021-02-02 11:01] LABS: BLOOD UREA NITROGEN,BUN 17 mg/dL (7.0-18.0); CARBON DIOXIDE,CO2 27.4 mmol/L (21.0-32.0); CHLORIDE,CL 103 mmol/L (98-107); GLUCOSE RANDOM 50 mg/dL (74-106); POTASSIUM,K 4.3 mmol/L (3.5-5.1); SODIUM,NA 139 mmol/L (136-148)
== END 2021-02-02 14:00 | disposition home or self-care (01) ==
LOC: MW.ED 09:24
DX: R53.1 Weakness (principal); I48.91 Unspecified atrial fibrillation; I10 Essential (primary) hypertension; J44.9 Chronic obstructive pulmonary disease, unspecified; E11.40 Type 2 diabetes mellitus with diabetic neuropathy, unspecified; Z79.4 Long term (current) use of insulin; Z79.01 Long term (current) use of anticoagulants; Z79.899 Other long term (current) drug therapy
CPT/HCPCS: 36415; 70450; 70450-26; 71045; 71045-26; 80053; 81001; 83605; 83880; 84484; 85025; 93005; 99285-25

== ENCOUNTER 2021-05-06 06:24 | Day surgery (SDC) | payer OTHER, MEDICARE, BC ==
--- NOTE | 2021-05-06 07:07 | PCM.PREANE ---
Preanesthetic Assessment - Procedure Proposed Procedure: EGD/Colonoscopy - Anesthesia/Transfusion/Family Hx Anesthesia History: Prior Anesthesia Without Reaction Family History of Anesthesia Reaction: No Transfusion History: No Prior Transfusion(s) - Review of Systems General: No Symptoms Pulmonary: No Symptoms Cardiovascular: No Symptoms (H/o CHF- controlled, HTN, HLD) Gastrointestinal: No Symptoms Neurological: No Symptoms (H/O CVA early 2020 no residual, Sz D/o controlled on Keppra) Other: Reports: None - Physical Assessment NPO Status Date: 05/04/21 NPO Status Time: 18:00 (solids, >7Hr Liq) Vital Signs: Last Vital Signs Temp 97.0 F 05/06/21 06:42 Pulse 97 05/06/21 06:42 Resp 16 05/06/21 06:42 BP 125/90 05/06/21 06:42 Pulse Ox 94 L 05/06/21 06:42 Height: 6 ft Weight: 123.831 kg (Obesity) ASA Class: 3 Mental Status: Alert & Oriented x3 Airway Class: Mallampati = 3 Dentition: Reports: Dentures, Missing Tooth/Teeth Thyro-Mental Finger Breadths: 3 Mouth Opening Finger Breadths: 2 ROM/Head Extension: Full Lungs: Clear to Auscultation, Normal Respiratory Effort Cardiovascular: Regular Rate, Regular Rhythm - Allergies Allergies/Adverse Reactions: Allergies Allergy/AdvReac Type Severity Reaction Status Date / Time No Known Allergies Allergy Verified 05/03/21 10:36 - Anesthesia Plan Beta Maddy: Metoprolol Med Last Dose Date: 05/06/21 Med Last Dose Time: 05:30 - Acknowledgements Anesthesia Type Planned: General Anesthesia Pt an Appropriate Candidate for the Planned Anesthesia: Yes Alternatives and Risks of Anesthesia Discussed w Pt/Guardian: Yes Pt/Guardian Understands and Agrees with Anesthesia Plan: Yes PreAnesthesia Questionnaire HEENT History: Reports: Cataract, Hard of Hearing, Macular Degeneration, Other (See Below) Other HEENT History: "dry" macular degeneration, wears glasses, has upper denture, has bilateral hearing aides but doesn't wear them Cardiovascular History: Reports: Heart Failure, High Cholesterol, Hypertension Other Cardiovascular History: recently started on Lasix for CHF Respiratory History: Reports: None Gastrointestinal History: Reports: None Genitourinary History: Reports: BPH Other Genitourinary History: has indwelling freed catheter Musculoskeletal History: Reports: None Neurological History: Reports: CVA, Seizure Other Neuro History: hx of stroke- no residual, hx of seizure x2- started medication and no seizures since, has balance issues and uses a walker Psychiatric History: Reports: None Endocrine/Metabolic History: Reports: Diabetes, Type II, IDDM, Obesity/BMI 30+ Hematologic History: Reports: Anemia, Anticoagulation Therapy, Iron Deficiency Immunologic History: Reports: None Oncologic (Cancer) History: Reports: Squamous Cell Carcinoma Other Oncologic History: spot excised from tenriism Dermatologic History: Reports: None - Infectious Disease History Infectious Disease History: Reports: None - Past Surgical History Head Surgeries/Procedures: Reports: None HEENT Surgical History: Reports: Cataract Surgery Cardiovascular Surgical History: Reports: None Respiratory Surgical History: Reports: None GI Surgical History: Reports: Appendectomy Male Surgical History: Reports: Other (See Below) Other Male Surgeries/Procedures: Cystoscopy, has appt. with Urologist next week Endocrine Surgical History: Reports: None Neurological Surgical History: Reports: None Musculoskeletal Surgical History: Reports: Knee Replacement Other Musculoskeletal Surgeries/Procedures:: left TKA Dermatological Surgical History: Reports: Skin Biopsy - SUBSTANCE USE Tobacco Use Status *Q: Never Tobacco User Recreational Drug Use History: No - HOME MEDS Home Medications: Home Meds Insuln Asp Prot/Insulin Aspart [NovoLOG Mix 70-30] 27 unit SQ ACDINNER 05/22/18 [History] Losartan [Cozaar] 100 mg PO QAM 05/22/18 [History] Metoprolol Tartrate 50 mg PO BID 05/22/18 [History] Simvastatin 10 mg PO QPM 05/22/18 [History] Insuln Asp Prot/Insulin Aspart [NovoLOG Mix 70-30] 33 units SQ ACBREAKFAST 05/24/18 [History] Multivitamin [Multivitamins] 1 each PO QAM 08/23/18 [History] metFORMIN [Glucophage] 500 mg PO TIDMEALS 08/23/18 [History] Apixaban [Eliquis] 5 mg PO BID #30 tablet 01/17/20 [Rx] levETIRAcetam [Levetiracetam] 750 mg PO BID #60 tablet 06/28/20 [Rx] Furosemide [Lasix] 20 mg PO DAILY #5 tab 09/10/20 [Rx] Semaglutide [Ozempic] 0.5 mg SQ WEEKLY 02/02/21 [History] Lutein/Minerals/Vit A,C & E [Ocuvite] 1 cap PO DAILY 05/03/21 [History] [place]-3S/DHA/Epa/Fish Oil/D3 [[place]-3 + D Softgel] 1 cap PO DAILY 05/03/21 [History] Tamsulosin HCl 0.4 mg PO DAILY 05/03/21 [History] - CURRENT (IN HOUSE) MEDS Current Meds: Current Medications Lactated Ringer's (Ringers, Lactated) 1,000 mls @ 125 mls/hr IV ASDIRECTED JAMES
[2021-05-06] MEDS ORDERED: fentaNYL 100 MCG/2 ML SDV ONE (07:27)
[2021-05-06] MEDS ORDERED: Lidocaine 2% 5 ML SDV ONE (07:27)
[2021-05-06] MEDS ORDERED: Propofol 200 MG/20 ML SDV ONE ×2 (07:27→08:20)
[2021-05-06] MEDS ORDERED: Lactated Ringers 1,000 ML IV SCH ×2 (08:00→09:00)
--- NOTE | 2021-05-06 08:56 | PCM.POSTAN ---
POST ANESTHESIA ASSESSMENT - MENTAL STATUS Mental Status: Somnolent - VITAL SIGNS Vital Signs: Last Vital Signs Temp 97.0 F 05/06/21 06:42 Pulse 97 05/06/21 06:42 Resp 16 05/06/21 06:42 BP 125/90 05/06/21 06:42 Pulse Ox 94 L 05/06/21 06:42 - RESPIRATORY Respiratory Status: Respiratory Rate WNL, Airway Patent, O2 Saturation Stable, Supplemental Oxygen - CARDIOVASCULAR CV Status: Pulse Rate WNL, Blood Pressure Stable - GASTROINTESTINAL GI Status: No Symptoms - PAIN Free Text/Narrative:: Resting comfortably - POST OP HYDRATION Hydration Status: Adequate & Stable
--- NOTE | 2021-05-06 08:59 | PCM48HPAN ---
Post Anesthesia Note - EVALUATION WITHIN 48HRS OF ANESTHETIC Vital Signs in Normal Range: Yes Patient Participated in Evaluation: Yes Respiratory Function Stable: Yes Airway Patent: Yes Cardiovascular Function Stable: Yes Hydration Status Stable: Yes Pain Control Satisfactory: Yes Nausea and Vomiting Control Satisfactory: Yes Mental Status Recovered: Yes Vital Signs: Last Vital Signs Temp 97.0 F 05/06/21 06:42 Pulse 97 05/06/21 06:42 Resp 16 05/06/21 06:42 BP 125/90 05/06/21 06:42 Pulse Ox 94 L 05/06/21 06:42 - COMMENTS/OBSERVATIONS Free Text/Narrative:: Pt doing well post-op. VSS. No apparent anesthetic complications. Dr. Adam Baltazar
--- NOTE | 2021-05-06 09:02 | PCM.OPNOTE ---
- General Post-Op/Procedure Note Date of Surgery/Procedure: 05/06/21 Operative Procedure(s): Esophagogastroduodenoscopy with gastric biopsies and gastrric polypetomy. Colonoscopy with biopsies cecal/ascending colon tumor. Pre Op Diagnosis: Iron deficiency anemia Post-Op Diagnosis: Mild to moderate chronic gastritis. Gastric polyp. Cecal/ascending colon tumor. Sigmoid diverticulosis. Anesthesia Technique: MAC (ASA III) Primary Surgeon: Yung Hall Engine Test Cell Technician: Arcenio Cisneros Condition: Good Free Text/Narrative:: DICTATION [id number] CPT CODE [id number]
--- NOTE | 2021-05-07 07:41 | OR ---
SURGEON: Yung Hall M.D. DATE OF PROCEDURE: 05/06/2021 OPERATION PERFORMED: Esophagogastroduodenoscopy with gastric biopsy. PRIMARY SURGEON: Yung Hall M.D. KEYSEATING MACHINE SET UP OPERATOR: Knife Cutter: KYLEE Perez, student. ANESTHESIA: MAC. ASA CLASSIFICATION: III. PREOPERATIVE DIAGNOSIS: Undiagnosed anemia. POSTOPERATIVE DIAGNOSIS: Mild chronic gastritis without ulceration or tumor. DESCRIPTION OF PROCEDURE: The patient was taken to the endoscopy room and positioned on the endoscopy table in a left lateral decubitus position. Time-out was called for appropriate identification of the patient and procedure. Monitored anesthesia care was provided. The bite block was placed between the patient's teeth. The gastroscope was inserted through the bite block into the oropharynx and advanced without difficulty through the esophagus and stomach into the duodenum where examination was now carried out in a retrograde fashion. The duodenum shows no acute inflammatory changes or ulcerations. A small duodenal diverticulum was identified. I did not see any inflammatory changes and there was no blood associated with this diverticulum. The gastroscope was withdrawn into the stomach, which does show a few small flecks of blood. Antral biopsies were obtained to look for the presence of Helicobacter pylori. The gastroscope was then retroflexed to visualize the proximal stomach. No tumors or ulcers are noted. One small polyp was encountered along the greater curvature and this was also removed with cold biopsy forceps. No significant hiatal hernia is noted. The gastroscope was then straightened and slowly withdrawn aspirating the stomach as the scope was withdrawn. The GE junction was well defined and shows no acute inflammatory changes or ulcerations. The esophagus demonstrates fair contractility. No mid or proximal lesions were identified. The vocal cords were visualized as the scope was withdrawn and noted to move symmetrically. The gastroscope was then removed with the patient having tolerated the procedure well. Following colonoscopy, he was taken to recovery room in stable condition. SHAYY / YAKELIN /[id number]
--- NOTE | 2021-05-07 07:41 | OR ---
SURGEON: Yung Hall M.D. DATE OF PROCEDURE: 05/06/2021 OPERATION PERFORMED: Colonoscopy with biopsy of cecal/ascending colon tumor. PRIMARY SURGEON: Yung Hall M.D. 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 ANESTHESIA: MAC. ASA CLASSIFICATION: III. PREOPERATIVE DIAGNOSIS: Undiagnosed anemia. POSTOPERATIVE DIAGNOSES: 1. Cecal/ascending colon tumor mass. 2. Sigmoid diverticulosis. DESCRIPTION OF PROCEDURE: With the patient having completed upper GI endoscopy, he was maintained in the left lateral decubitus position. The colonoscope was inserted into the rectum and advanced with moderate difficulty to the proximal ascending colon visualizing the cecum in the distance. I did not have enough length on the scope to maneuver into the cecum. There was a large tumor mass sitting in the ascending colon and multiple biopsies of this area were taken. 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 The remainder of the ascending colon, hepatic flexure, transverse colon, splenic flexure, and descending colon showed no tumors, polyps, diverticula, or angiodysplastic changes. The sigmoid colon demonstrates moderate diverticular change. No acute inflammatory changes were noted. No sigmoid stricture is noted. The colonoscope was withdrawn to the rectum and retroflexed to visualize the anal orifice from above. No tumors, polyps, or hemorrhoids were seen. The colonoscope was then straightened, the rectum aspirated, and the colonoscope removed. The patient tolerated the procedure well and was taken to recovery room in stable condition. SHAYY / YAKELIN /[id number]
== END 2021-05-06 09:35 | disposition home or self-care (01) ==
LOC: MW.SDS 06:24
PROVIDERS: ATTEND Surgery
DX: C18.0 Malignant neoplasm of cecum (principal); K57.30 Diverticulosis of large intestine without perforation or abscess without bleeding; D50.9 Iron deficiency anemia, unspecified; K29.50 Unspecified chronic gastritis without bleeding; K31.7 Polyp of stomach and duodenum; K31.89 Other diseases of stomach and duodenum; I63.431 Cerebral infarction due to embolism of right posterior cerebral artery; R56.9 Unspecified convulsions; N40.0 Benign prostatic hyperplasia without lower urinary tract symptoms; I10 Essential (primary) hypertension; E11.9 Type 2 diabetes mellitus without complications; E78.00 Pure hypercholesterolemia, unspecified; E66.01 Morbid (severe) obesity due to excess calories; Z79.899 Other long term (current) drug therapy; Z79.01 Long term (current) use of anticoagulants; Z79.84 Long term (current) use of oral hypoglycemic drugs; Z79.4 Long term (current) use of insulin; Z90.49 Acquired absence of other specified parts of digestive tract; Z68.37 Body mass index [BMI] 37.0-37.9, adult; Z98.890 Other specified postprocedural states
CPT/HCPCS: 43239; 45380; J2704; J3010; J7120; 00813; 99100

== ENCOUNTER 2021-08-12 08:27 | Inpatient (IN) | payer OTHER, MEDICARE, BC ==
[2021-08-12] MEDS ORDERED: Sodium Chloride 0.9% 2.5 ML Syringe FLUSH PRN ×2 (08:44→13:59)
[2021-08-12] MEDS ORDERED: Sodium Chloride 0.9% 10 ML Syringe FLUSH PRN ×2 (08:44→13:59)
[2021-08-12 09:22] LABS: BLOOD UREA NITROGEN,BUN 16 mg/dL (7.0-18.0); CARBON DIOXIDE,CO2 27.9 mmol/L (21.0-32.0); CHLORIDE,CL 99 mmol/L (98-107); GLUCOSE RANDOM 62 mg/dL (74-106); POTASSIUM,K 4.3 mmol/L (3.5-5.1); SODIUM,NA 136 mmol/L (136-148)
[2021-08-12] MEDS ORDERED: cefTRIAXone 1 GM in Sodium Chloride 0.9% 50 ML IV ONE (11:33)
[2021-08-12] MEDS ORDERED: Ondansetron 4 MG/2 ML SDV IVPUSH PRN (13:59)
[2021-08-12] MEDS ORDERED: Docusate Sodium 100 MG Cap PO PRN (13:59)
[2021-08-12] MEDS ORDERED: Acetaminophen 325 MG Tab PO PRN (13:59)
[2021-08-12] MEDS ORDERED: Magnesium Sulfate/Water 2 GM in Premix Bag 1 BAG IV ONE (14:32)
[2021-08-12] MEDS ORDERED: 50% Dextrose in Water 50 ML Syringe IVPUSH PRN (14:41)
[2021-08-12] MEDS ORDERED: Glucagon,Human Recombinant 1 MG Vial IM PRN (14:41)
[2021-08-12] MEDS: Insulin Aspart 100 Units/ML 3 ML Pen SUBCUT SCH (17:38)
[2021-08-12] MEDS: levETIRAcetam 500 MG Tab PO SCH (21:05)
[2021-08-12] MEDS: Apixaban 5 MG Tab PO SCH (21:06)
[2021-08-13] MEDS: Insulin Aspart 100 Units/ML 3 ML Pen SUBCUT SCH ×3 (07:26→16:28)
[2021-08-13 07:55] LABS: BLOOD UREA NITROGEN,BUN 15 mg/dL (7.0-18.0); CARBON DIOXIDE,CO2 27.2 mmol/L (21.0-32.0); CHLORIDE,CL 99 mmol/L (98-107); GLUCOSE RANDOM 165 mg/dL (74-106); POTASSIUM,K 4.1 mmol/L (3.5-5.1); SODIUM,NA 137 mmol/L (136-148)
[2021-08-13] MEDS: levETIRAcetam 500 MG Tab PO SCH ×2 (08:20→20:29)
[2021-08-13] MEDS: Apixaban 5 MG Tab PO SCH ×2 (08:20→20:29)
[2021-08-13] MEDS: cefTRIAXone 1 GM in Sodium Chloride 0.9% 50 ML IV SCH (10:33)
[2021-08-13] MEDS: metFORMIN 500 MG Tab PO SCH ×2 (12:10→16:29)
[2021-08-13] MEDS: Simvastatin 10 MG Tab PO SCH (20:29)
[2021-08-14] MEDS: Insulin Aspart 100 Units/ML 3 ML Pen SUBCUT SCH ×3 (07:32→17:00)
[2021-08-14] MEDS: metFORMIN 500 MG Tab PO SCH ×3 (07:33→16:59)
[2021-08-14] MEDS: Tamsulosin 0.4 MG Cap.ER PO SCH (09:19)
[2021-08-14] MEDS: Furosemide 20 MG Tab PO SCH (09:19)
[2021-08-14] MEDS: Apixaban 5 MG Tab PO SCH ×2 (09:19→20:01)
[2021-08-14] MEDS: Losartan 50 MG Tab PO SCH (09:19)
[2021-08-14] MEDS: levETIRAcetam 500 MG Tab PO SCH ×2 (09:21→20:01)
[2021-08-14] MEDS: cefTRIAXone 1 GM in Sodium Chloride 0.9% 50 ML IV SCH (09:23)
[2021-08-14] MEDS ORDERED: Docusate Sodium 100 MG Cap PO PRN (13:01)
[2021-08-14] MEDS: Simvastatin 10 MG Tab PO SCH (20:01)
[2021-08-15 06:06] LABS: BLOOD UREA NITROGEN,BUN 15 mg/dL (7.0-18.0); CARBON DIOXIDE,CO2 28.7 mmol/L (21.0-32.0); CHLORIDE,CL 101 mmol/L (98-107); GLUCOSE RANDOM 128 mg/dL (74-106); POTASSIUM,K 4.3 mmol/L (3.5-5.1); SODIUM,NA 138 mmol/L (136-148)
[2021-08-15] MEDS: Insulin Aspart 100 Units/ML 3 ML Pen SUBCUT SCH ×2 (08:01→12:50)
[2021-08-15] MEDS: levETIRAcetam 500 MG Tab PO SCH (08:57)
[2021-08-15] MEDS: metFORMIN 500 MG Tab PO SCH ×2 (08:58→12:45)
[2021-08-15] MEDS: Tamsulosin 0.4 MG Cap.ER PO SCH (08:59)
[2021-08-15] MEDS: Apixaban 5 MG Tab PO SCH (08:59)
[2021-08-15] MEDS: Losartan 50 MG Tab PO SCH (09:00)
[2021-08-15] MEDS: Furosemide 20 MG Tab PO SCH (09:01)
[2021-08-15] MEDS ORDERED: Levofloxacin 750 MG Tab PO SCH (11:30)
[2021-08-15] MEDS: cefTRIAXone 1 GM in Sodium Chloride 0.9% 50 ML IV SCH (11:31)
== END 2021-08-15 14:50 | disposition home or self-care (01) | DRG 690 ==
LOC: MW.ED 08:27 → MW.MS 12:35 → OBSVTOIN 08-13 10:08 → MW.MS 08-13 10:29
PROVIDERS: ADMIT Internal Medicine; ATTEND Internal Medicine
DX: N39.0 Urinary tract infection, site not specified (principal); R60.9 Edema, unspecified; H91.93 Unspecified hearing loss, bilateral; H35.3190 Nonexudative age-related macular degeneration, unspecified eye, stage unspecified; C18.2 Malignant neoplasm of ascending colon; I48.91 Unspecified atrial fibrillation; I10 Essential (primary) hypertension; C18.9 Malignant neoplasm of colon, unspecified; E78.5 Hyperlipidemia, unspecified; Z93.6 Other artificial openings of urinary tract status; Z96.0 Presence of urogenital implants; N13.9 Obstructive and reflux uropathy, unspecified; D64.9 Anemia, unspecified; E61.1 Iron deficiency; Z85.828 Personal history of other malignant neoplasm of skin; N40.0 Benign prostatic hyperplasia without lower urinary tract symptoms; C61 Malignant neoplasm of prostate; B96.20 Unspecified Escherichia coli [E. coli] as the cause of diseases classified elsewhere; E11.42 Type 2 diabetes mellitus with diabetic polyneuropathy; G40.909 Epilepsy, unspecified, not intractable, without status epilepticus; I63.9 Cerebral infarction, unspecified; E11.40 Type 2 diabetes mellitus with diabetic neuropathy, unspecified; H91.90 Unspecified hearing loss, unspecified ear; H54.7 Unspecified visual loss; H35.30 Unspecified macular degeneration; E78.00 Pure hypercholesterolemia, unspecified; I11.0 Hypertensive heart disease with heart failure; I50.9 Heart failure, unspecified; E66.9 Obesity, unspecified; D50.9 Iron deficiency anemia, unspecified; Z98.49 Cataract extraction status, unspecified eye; Z79.01 Long term (current) use of anticoagulants; Z86.73 Personal history of transient ischemic attack (TIA), and cerebral infarction without residual deficits; Z79.4 Long term (current) use of insulin; Z79.899 Other long term (current) drug therapy; Z79.82 Long term (current) use of aspirin; Z97.4 Presence of external hearing-aid; Z90.49 Acquired absence of other specified parts of digestive tract; Z96.652 Presence of left artificial knee joint; Z66 Do not resuscitate; Z20.822 Contact with and (suspected) exposure to COVID-19; Z68.35 Body mass index [BMI] 35.0-35.9, adult
CPT/HCPCS: 36415 ×2; 71045; 80048; 80053; 81001; 82947 ×2; 83735 ×2; 83880; 84443; 84484; 85025 ×2; 87086; 87088; 87186; 87635; 93005; 96365; 96375; 99285; A9270 ×4; J0696; J3475; 96367; 97110-GP; 97161-GP; G0378; J1815-GY; U0002

== ENCOUNTER 2021-09-14 22:16 | Emergency (ER) | payer OTHER, MEDICARE, BC ==
[2021-09-14] MEDS ORDERED: fentaNYL 50 MCG/ML SDV IM ONE (22:41)
[2021-09-14] MEDS ORDERED: fentaNYL 50 MCG/ML SDV IVPUSH ONE (23:24)
[2021-09-15] MEDS ORDERED: fentaNYL 50 MCG/ML SDV IVPUSH ONE (00:15)
== END 2021-09-15 02:15 | disposition home or self-care (01) ==
LOC: MW.ED 22:16
DX: M25.562 Pain in left knee (principal); E11.649 Type 2 diabetes mellitus with hypoglycemia without coma; I11.0 Hypertensive heart disease with heart failure; I50.9 Heart failure, unspecified; E78.00 Pure hypercholesterolemia, unspecified; J44.9 Chronic obstructive pulmonary disease, unspecified; E66.9 Obesity, unspecified; Z68.24 Body mass index [BMI] 24.0-24.9, adult; Z96.652 Presence of left artificial knee joint
CPT/HCPCS: 73560; 82947; 96374; 96376; 99283; J3010

== ENCOUNTER 2021-09-15 15:46 | Inpatient (IN) | payer MEDICARE, OTHER, BC ==
[2021-09-15 17:22] LABS: BLOOD UREA NITROGEN,BUN 21 mg/dL (7.0-18.0); CARBON DIOXIDE,CO2 26.4 mmol/L (21.0-32.0); CHLORIDE,CL 101 mmol/L (98-107); ESTIMATED GFR > 60.0 ml/min; GLUCOSE RANDOM 81 mg/dL (74-106); POTASSIUM,K 4.6 mmol/L (3.5-5.1); SODIUM,NA 135 mmol/L (136-148)
[2021-09-15] MEDS ORDERED: Iopamidol 755 MG/ML 500 ML Multipack Bottle IVPUSH STA (19:31)
[2021-09-16] MEDS ORDERED: Morphine 2 MG/ML SYRINGE IVPUSH PRN (00:15)
[2021-09-16] MEDS ORDERED: Albuterol/Ipratropium 3.0-0.5 MG/3 ML Neb Soln NEB PRN (00:15)
[2021-09-16] MEDS ORDERED: Metoprolol Tartrate 50 MG Tab PO ONE (00:51)
[2021-09-16 07:04] LABS: BLOOD UREA NITROGEN,BUN 13 mg/dL (7.0-18.0); CHLORIDE,CL 103 mmol/L (98-107); ESTIMATED GFR > 60.0 ml/min; GLUCOSE RANDOM 89 mg/dL (74-106); POTASSIUM,K 4.3 mmol/L (3.5-5.1); SODIUM,NA 137 mmol/L (136-148)
[2021-09-16] MEDS ORDERED: 50% Dextrose in Water 50 ML Syringe IVPUSH PRN (08:59)
[2021-09-16] MEDS ORDERED: Glucagon,Human Recombinant 1 MG Vial IM PRN (08:59)
[2021-09-16] MEDS: Losartan 50 MG Tab PO SCH (09:00)
[2021-09-16] MEDS: Metoprolol Tartrate 50 MG Tab PO SCH ×2 (09:00→20:39)
[2021-09-16] MEDS: Fish Oil/Omega-3 Fatty Acids 1 Gm Cap PO SCH (09:00)
[2021-09-16] MEDS: Tamsulosin 0.4 MG Cap.ER PO SCH (09:00)
[2021-09-16] MEDS ORDERED: oxyCODONE 5 MG Tab PO PRN (09:00)
[2021-09-16] MEDS ORDERED: Fish Oil/Omega-3 Fatty Acids 1 Gm Cap PO SCH (09:00)
[2021-09-16] MEDS: Furosemide 20 MG Tab PO SCH (09:00)
[2021-09-16] MEDS: levETIRAcetam 500 MG Tab PO SCH ×2 (09:01→20:38)
[2021-09-16] MEDS: Acetaminophen 325 MG Tab PO PRN (09:01)
[2021-09-16] MEDS ORDERED: Furosemide 20 MG/2 ML VIAL IVPUSH ONE (09:58)
[2021-09-16] MEDS: Apixaban 5 MG Tab PO SCH ×2 (10:41→20:38)
[2021-09-16] MEDS: Insulin Aspart 100 Units/ML 3 ML Pen SUBCUT SCH ×2 (11:46→17:16)
[2021-09-16] MEDS ORDERED: Acetaminophen/HYDROcodone 325-5 MG Tab PO PRN (13:30)
[2021-09-16] MEDS: Simvastatin 10 MG Tab PO SCH (17:12)
[2021-09-17 06:18] LABS: BLOOD UREA NITROGEN,BUN 16 mg/dL (7.0-18.0); CARBON DIOXIDE,CO2 28.8 mmol/L (21.0-32.0); CHLORIDE,CL 104 mmol/L (98-107); ESTIMATED GFR > 60.0 ml/min; GLUCOSE RANDOM 121 mg/dL (74-106); POTASSIUM,K 4.1 mmol/L (3.5-5.1); SODIUM,NA 139 mmol/L (136-148)
[2021-09-17] MEDS: Insulin Aspart 100 Units/ML 3 ML Pen SUBCUT SCH ×3 (08:07→18:25)
[2021-09-17] MEDS: Tamsulosin 0.4 MG Cap.ER PO SCH (09:03)
[2021-09-17] MEDS: levETIRAcetam 500 MG Tab PO SCH ×2 (09:03→21:11)
[2021-09-17] MEDS: Losartan 50 MG Tab PO SCH (09:04)
[2021-09-17] MEDS: Fish Oil/Omega-3 Fatty Acids 1 Gm Cap PO SCH (09:07)
[2021-09-17] MEDS: Furosemide 20 MG Tab PO SCH (09:07)
[2021-09-17] MEDS: Multivitamin Tab PO SCH (09:07)
[2021-09-17] MEDS: Apixaban 5 MG Tab PO SCH ×2 (09:07→21:10)
[2021-09-17] MEDS: Metoprolol Tartrate 50 MG Tab PO SCH ×2 (09:07→21:29)
[2021-09-17] MEDS: Simvastatin 10 MG Tab PO SCH (18:25)
[2021-09-17] MEDS: Acetaminophen 325 MG Tab PO PRN (21:36)
[2021-09-18] MEDS: Insulin Aspart 100 Units/ML 3 ML Pen SUBCUT SCH ×3 (08:12→16:45)
[2021-09-18] MEDS: Metoprolol Tartrate 50 MG Tab PO SCH ×2 (08:16→20:42)
[2021-09-18] MEDS: Apixaban 5 MG Tab PO SCH ×2 (08:16→20:41)
[2021-09-18] MEDS: Furosemide 20 MG Tab PO SCH (08:16)
[2021-09-18] MEDS: Losartan 50 MG Tab PO SCH (08:16)
[2021-09-18] MEDS: levETIRAcetam 500 MG Tab PO SCH ×2 (08:17→20:41)
[2021-09-18] MEDS: Multivitamin Tab PO SCH (08:17)
[2021-09-18] MEDS: Tamsulosin 0.4 MG Cap.ER PO SCH (08:17)
[2021-09-18] MEDS: Fish Oil/Omega-3 Fatty Acids 1 Gm Cap PO SCH (08:17)
[2021-09-18] MEDS: Simvastatin 10 MG Tab PO SCH (17:30)
[2021-09-19 05:59] LABS: BLOOD UREA NITROGEN,BUN 17 mg/dL (7.0-18.0); CARBON DIOXIDE,CO2 28.8 mmol/L (21.0-32.0); CHLORIDE,CL 105 mmol/L (98-107); ESTIMATED GFR > 60.0 ml/min; GLUCOSE RANDOM 126 mg/dL (74-106); POTASSIUM,K 3.6 mmol/L (3.5-5.1); SODIUM,NA 141 mmol/L (136-148)
[2021-09-19] MEDS: Insulin Aspart 100 Units/ML 3 ML Pen SUBCUT SCH ×3 (08:01→18:11)
[2021-09-19] MEDS: levETIRAcetam 500 MG Tab PO SCH ×2 (09:24→20:40)
[2021-09-19] MEDS: Losartan 50 MG Tab PO SCH (09:24)
[2021-09-19] MEDS: Furosemide 20 MG Tab PO SCH (09:25)
[2021-09-19] MEDS: Apixaban 5 MG Tab PO SCH ×2 (09:25→20:36)
[2021-09-19] MEDS: Metoprolol Tartrate 50 MG Tab PO SCH ×2 (09:26→20:37)
[2021-09-19] MEDS: Fish Oil/Omega-3 Fatty Acids 1 Gm Cap PO SCH (09:27)
[2021-09-19] MEDS: Tamsulosin 0.4 MG Cap.ER PO SCH (09:27)
[2021-09-19] MEDS: Multivitamin Tab PO SCH (09:28)
[2021-09-19] MEDS ORDERED: Potassium Chloride 20 MEQ Tab.ER PO ONE (11:51)
[2021-09-19] MEDS ORDERED: Digoxin 500 MCG/2 ML Amp IVPUSH ONE (12:04)
[2021-09-19] MEDS: Digoxin 500 MCG/2 ML Amp IVPUSH SCH (18:24)
[2021-09-19] MEDS: Simvastatin 10 MG Tab PO SCH (18:25)
[2021-09-19] MEDS: Acetaminophen 325 MG Tab PO PRN (20:50)
[2021-09-20] MEDS: Digoxin 500 MCG/2 ML Amp IVPUSH SCH (00:18)
[2021-09-20 06:40] LABS: BLOOD UREA NITROGEN,BUN 14 mg/dL (7.0-18.0); CARBON DIOXIDE,CO2 27.1 mmol/L (21.0-32.0); CHLORIDE,CL 105 mmol/L (98-107); ESTIMATED GFR > 60.0 ml/min; GLUCOSE RANDOM 153 mg/dL (74-106); POTASSIUM,K 3.9 mmol/L (3.5-5.1); SODIUM,NA 141 mmol/L (136-148)
[2021-09-20] MEDS: Insulin Aspart 100 Units/ML 3 ML Pen SUBCUT SCH ×3 (08:00→18:13)
[2021-09-20] MEDS: Digoxin 125 MCG Tab PO SCH (10:06)
[2021-09-20] MEDS: Fish Oil/Omega-3 Fatty Acids 1 Gm Cap PO SCH (10:07)
[2021-09-20] MEDS: Multivitamin Tab PO SCH (10:07)
[2021-09-20] MEDS: Apixaban 5 MG Tab PO SCH ×2 (10:07→20:22)
[2021-09-20] MEDS: Furosemide 20 MG Tab PO SCH (10:08)
[2021-09-20] MEDS: Tamsulosin 0.4 MG Cap.ER PO SCH (10:08)
[2021-09-20] MEDS: Losartan 50 MG Tab PO SCH (10:08)
[2021-09-20] MEDS: levETIRAcetam 500 MG Tab PO SCH ×2 (10:09→20:23)
[2021-09-20] MEDS: Metoprolol Tartrate 50 MG Tab PO SCH ×2 (10:10→20:22)
[2021-09-20] MEDS ORDERED: Metoprolol Tartrate 25 MG Tab PO ONE (11:53)
[2021-09-20] MEDS: Acetaminophen 325 MG Tab PO PRN (15:23)
[2021-09-20] MEDS: Simvastatin 10 MG Tab PO SCH (18:48)
[2021-09-21] MEDS: Insulin Aspart 100 Units/ML 3 ML Pen SUBCUT SCH (07:34)
[2021-09-21] MEDS: Apixaban 5 MG Tab PO SCH (09:36)
[2021-09-21] MEDS: Multivitamin Tab PO SCH (09:36)
[2021-09-21] MEDS: Furosemide 20 MG Tab PO SCH (09:36)
[2021-09-21] MEDS: Tamsulosin 0.4 MG Cap.ER PO SCH (09:36)
[2021-09-21] MEDS: Metoprolol Tartrate 50 MG Tab PO SCH (09:37)
[2021-09-21] MEDS: levETIRAcetam 500 MG Tab PO SCH (09:37)
[2021-09-21] MEDS: Losartan 50 MG Tab PO SCH (09:38)
[2021-09-21] MEDS: Digoxin 125 MCG Tab PO SCH (09:41)
[2021-09-21] MEDS: Fish Oil/Omega-3 Fatty Acids 1 Gm Cap PO SCH (09:42)
== END 2021-09-21 11:50 | DRG 556 ==
LOC: MW.ED 15:46 → MW.MS 20:29
PROVIDERS: ADMIT Student in an Organized Health Care Education/Training Program; ATTEND Student in an Organized Health Care Education/Training Program
DX: R26.89 Other abnormalities of gait and mobility (principal); S89.91XA Unspecified injury of right lower leg, initial encounter; X50.1XXA Overexertion from prolonged static or awkward postures, initial encounter; M25.562 Pain in left knee; C18.9 Malignant neoplasm of colon, unspecified; N13.8 Other obstructive and reflux uropathy; D50.9 Iron deficiency anemia, unspecified; H91.93 Unspecified hearing loss, bilateral; G40.909 Epilepsy, unspecified, not intractable, without status epilepticus; I48.91 Unspecified atrial fibrillation; M62.81 Muscle weakness (generalized); Z93.6 Other artificial openings of urinary tract status; R26.2 Difficulty in walking, not elsewhere classified; E11.9 Type 2 diabetes mellitus without complications; D64.9 Anemia, unspecified; E61.1 Iron deficiency; Z85.46 Personal history of malignant neoplasm of prostate; Z85.038 Personal history of other malignant neoplasm of large intestine; Z85.828 Personal history of other malignant neoplasm of skin; Z66 Do not resuscitate; G89.29 Other chronic pain; M25.561 Pain in right knee; R60.9 Edema, unspecified; H35.3130 Nonexudative age-related macular degeneration, bilateral, stage unspecified; E11.40 Type 2 diabetes mellitus with diabetic neuropathy, unspecified; N13.9 Obstructive and reflux uropathy, unspecified; C61 Malignant neoplasm of prostate; I11.0 Hypertensive heart disease with heart failure; I50.9 Heart failure, unspecified; N40.1 Benign prostatic hyperplasia with lower urinary tract symptoms; E78.00 Pure hypercholesterolemia, unspecified; J44.9 Chronic obstructive pulmonary disease, unspecified; E66.9 Obesity, unspecified; Z20.822 Contact with and (suspected) exposure to COVID-19; R41.0 Disorientation, unspecified; Z96.652 Presence of left artificial knee joint; Z97.3 Presence of spectacles and contact lenses; Z79.4 Long term (current) use of insulin; Z90.49 Acquired absence of other specified parts of digestive tract; Z86.73 Personal history of transient ischemic attack (TIA), and cerebral infarction without residual deficits; Z79.899 Other long term (current) drug therapy; Z79.82 Long term (current) use of aspirin; Z79.01 Long term (current) use of anticoagulants; Z68.35 Body mass index [BMI] 35.0-35.9, adult
CPT/HCPCS: 36415; 73706; 80053; 81001; 85025; 99285; Q9967; U0002; 80048; 82728; 82947; 83550; 83735; 84100; 97110-GP; 97161-GP; 97530-GP; 99221; 99233; 99239; 99284; A9270-GY; J1160; J1815-GY; J1940; J2270; J7620-GY